=== PATIENT | female | born 1950 | race Caucasian/White ===

== ENCOUNTER → 2020-08-20 08:17 | Outpatient (CLI) | payer MEDICARE, MEDICAID, SELFPAY ==
--- NOTE | 2020-08-20 08:29 | US_ITS ---
PROCEDURE: US ABDOMEN LIMITED CLINICAL INDICATION: CHRONIC LIVER FAILURE W/O HEPATIC COMA COMPARISON: US ABD US ABD(COMPLETE-MULTI ORGANS from 12/24/2014 FINDINGS: PANCREAS: Unremarkable. No obvious mass or abnormal fluid collection. No ductal dilatation LIVER: Cirrhotic appearing liver. No focal liver lesion is evident. Portal vein is not enlarged. Portal blood flow direction is not well demonstrated but there does appear to be appropriate direction of blood flow within the portal vein.. RIGHT KIDNEY: Unremarkable. Normal size and echogenicity. No hydronephrosis GALLBLADDER: There are multiple gallstones. No gallbladder wall thickening, pericholecystic fluid, or biliary dilatation. There is a small amount of perihepatic fluid. IMPRESSION: Cholelithiasis. Cirrhotic appearing liver with a small amount of perihepatic fluid. Dictated by: Ricco Rivero MD 08/22/2020 11:55 Ricco Rivero MD in [place] 08/22/2020 11:55
== END ==
PROVIDERS: PCP Family Medicine; Visit Provider Family Medicine
DX: K72.10 Chronic hepatic failure without coma (principal)
CPT/HCPCS: 76705

== ENCOUNTER → 2020-12-18 16:19 | Outpatient (CLI) | payer MEDICARE, MEDICAID, SELFPAY ==
--- NOTE | 2020-12-18 | CA_ITS ---
APPROVED REPORT Left Lower Extremity Venous Study for DVT. Lpn: RICKIE Indications Lower Extremity Pain: Left Lower Extremity Edema: Left Current Smoker Patient denies any recent trauma. States her left foot has been swollen for a couple of weeks. Risk Factors Current Smoker HLD, HTN Vein Imaging CFV (L): compressive, spontaneous, phasic, augmentation FEM (L): compressive, spontaneous, phasic, augmentation POP (L): compressive, spontaneous, phasic, augmentation PTV (L): Compressible GSV (L): compressive, spontaneous, phasic, augmentation SSV (L): Compressible Peroneals (L):Compressible GAS (L): Compressible Findings No evidence of DVT or superficial thrombophlebitis in the veins scanned of the left lower extremity. Interstitial edema noted in left distal ankle. Conclusion No evidence of DVT or superficial thrombophlebitis in the veins scanned of the left lower extremity. Interstitial edema noted in left distal ankle. Critical Notification Critical Value: No Physician Notified Date: 12/18/2020 Time: 17:00 Physician Name: Dr. Knott Report Read Back Electronically signed by : Ricco Rivero MD 12/18/2020 17:22:19
== END ==
PROVIDERS: PCP Family Medicine; Visit Provider Family Medicine
DX: M79.605 Pain in left leg (principal)
CPT/HCPCS: 93971

== ENCOUNTER 2021-03-10 15:50 | Outpatient (RCR) | payer MEDICARE, MEDICAID, SELFPAY | END 2021-03-10 15:55 | disposition home or self-care (01) | LOC: PT 15:50 | PROVIDERS: PCP Family Medicine; Visit Provider Family Medicine | DX: R26.81 Unsteadiness on feet (principal); M62.81 Muscle weakness (generalized) | CPT/HCPCS: 97163; 97542 ==

== ENCOUNTER 2021-04-08 09:16 | Day surgery (SDC) | payer MEDICARE, MEDICAID, SELFPAY ==
[2021-04-02 13:44] VITALS: BMI 28.3
[2021-04-08] VITALS (7 sets, daily range): BP systolic 108–140; BP diastolic 55–71; PULSE 55–82; RESP 16–18; TEMP 36.3–36.6; O2SAT 95–100
[2021-04-08 08:55] LABS: Coronavirus 19, PCR Not Detected (NotDetected); Influenza A, PCR Not Detected (NotDetected); Influenza B, PCR Not Detected (NotDetected)
== END 2021-04-08 12:12 | disposition home or self-care (01) ==
LOC: OR 09:17
PROVIDERS: PCP Family Medicine; Visit Provider Ophthalmology
DX: H25.813 Combined forms of age-related cataract, bilateral (principal); H57.03 Miosis; H53.149 Visual discomfort, unspecified; H02.831 Dermatochalasis of right upper eyelid; H02.834 Dermatochalasis of left upper eyelid; J45.909 Unspecified asthma, uncomplicated; I10 Essential (primary) hypertension; Z86.73 Personal history of transient ischemic attack (TIA), and cerebral infarction without residual deficits; Z88.0 Allergy status to penicillin; Z88.2 Allergy status to sulfonamides; Z88.6 Allergy status to analgesic agent
CPT/HCPCS: 66982; U0003; V2632

== ENCOUNTER 2021-04-15 00:59 | Observation (INO) | payer MEDICARE, MEDICAID, SELFPAY ==
[2021-04-15] VITALS (21 sets, daily range): BP systolic 96–139; BP diastolic 47–79; PULSE 70–92; RESP 15–18; TEMP 36.7–43; O2SAT 93–99; BMI 28.3; BMI 30.2
--- NOTE | 2021-04-15 01:02 | CT_ITS ---
PROCEDURE INFORMATION: Exam: CT Cervical Spine Without Contrast Exam date and time: 04/15/2021 1:02 AM Age: 70 years old Clinical indication: Injury or trauma; Fall; Blunt trauma TECHNIQUE: Imaging protocol: Computed tomography images of the cervical spine without contrast. Radiation optimization: All CT scans at this facility use at least one of these dose optimization techniques: automated exposure control; mA and/or kV adjustment per patient size (includes targeted exams where dose is matched to clinical indication); or iterative reconstruction. COMPARISON: [facility] CT CERVICAL SPINE W/O CONT 08/25/2014 7:46 AM FINDINGS: Vertebrae: There are mild degenerative changes present. Normal alignment. No acute fractures. 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 Soft tissues: Unremarkable. Vasculature: Carotid atherosclerotic calcification. Lungs: Lung apices are normal. IMPRESSION: No acute injury.
--- NOTE | 2021-04-15 01:02 | XR_ITS ---
PROCEDURE INFORMATION: Exam: XR Chest Exam date and time: 04/15/2021 1:02 AM Age: 70 years old Clinical indication: Injury or trauma; Fall; Blunt trauma (contusions or hematomas) TECHNIQUE: Imaging protocol: XR of the chest. Views: 1 view. COMPARISON: CR CXR CHEST(2 VIEWS-NOT PORTABLE) 12/22/2014 8:49 PM FINDINGS: Lungs: Unremarkable. No consolidation. Pleural spaces: Unremarkable. No pleural effusion. No pneumothorax. Heart/Mediastinum: Unremarkable. No cardiomegaly. Vasculature: There are atherosclerotic calcifications in the aortic arch. Bones/joints: Degenerative changes throughout the thoracic spine. IMPRESSION: No acute injury.
--- NOTE | 2021-04-15 01:02 | XR_ITS ---
PROCEDURE INFORMATION: Exam: XR Left Hip Exam date and time: 04/15/2021 1:02 AM Age: 70 years old Clinical indication: Pain and injury or trauma; Blunt trauma (contusions or hematomas); Patient HX: Fall, left hip pain TECHNIQUE: Imaging protocol: XR Left hip. Views: 2 or 3 views hip with pelvis when performed. COMPARISON: CR PELAP PELVIS AP ONLY 06/09/2016 10:03 PM FINDINGS: Bones/joints: There is deformity of the left femoral neck consistent with a minimally displaced fracture. The femoral head remains well seated in the acetabulum. Soft tissues: Unremarkable. Intraperitoneal space: Stable surgical clips throughout the pelvis. Vasculature: Vascular calcifications throughout the upper leg and pelvis. IMPRESSION: Minimally displaced fracture of the left femoral neck.
--- NOTE | 2021-04-15 01:04 | CT_ITS ---
PROCEDURE INFORMATION: Exam: CT Left Lower Extremity Without Contrast, Hip Exam date and time: 04/15/2021 1:04 AM Age: 70 years old Clinical indication: Pain and injury or trauma; Fall; Blunt trauma; Hip; Left TECHNIQUE: Imaging protocol: CT of the Left lower extremity without contrast was performed. Exam focused on the hip. 3D rendering (Not supervised by radiologist): MIP and/or 3D reconstructed images were created by the technologist. Radiation optimization: All CT scans at this facility use at least one of these dose optimization techniques: automated exposure control; mA and/or kV adjustment per patient size (includes targeted exams where dose is matched to clinical indication); or iterative reconstruction. COMPARISON: CR XR HIP LT 2-3V W/PELVIS 04/15/2021 1:12 AM FINDINGS: Bones/joints: There is a fracture through the neck of the femur with mild impaction but no significant angulation or displacement. The femoral head remains well seated in the acetabulum. Soft tissues: Surgical clips throughout the pelvis. Vasculature: Severe atherosclerosis. IMPRESSION: Slightly impacted femoral neck fracture without significant angulation or displacement. No dislocation.
--- NOTE | 2021-04-15 01:04 | CT_ITS ---
PROCEDURE INFORMATION: Exam: CT Thoracic Spine Without Contrast Exam date and time: 04/15/2021 1:04 AM Age: 70 years old Clinical indication: Injury or trauma; Fall; Blunt trauma (contusions or hematomas) TECHNIQUE: Imaging protocol: Computed tomography images of the thoracic spine without contrast. Radiation optimization: All CT scans at this facility use at least one of these dose optimization techniques: automated exposure control; mA and/or kV adjustment per patient size (includes targeted exams where dose is matched to clinical indication); or iterative reconstruction. COMPARISON: CT CERVICAL SPINE WO CON 04/15/2021 1:23 AM FINDINGS: Vertebrae: Normal alignment. No acute fractures. There are mild degenerative changes present. Soft tissues: Soft tissues are normal. IMPRESSION: No acute injury.
--- NOTE | 2021-04-15 01:04 | CT_ITS ---
PROCEDURE INFORMATION: Exam: CT Lumbar Spine Without Contrast Exam date and time: 04/15/2021 1:04 AM Age: 70 years old Clinical indication: Injury or trauma; Fall; Blunt trauma (contusions or hematomas) TECHNIQUE: Imaging protocol: Computed tomography images of the lumbar spine without contrast. Radiation optimization: All CT scans at this facility use at least one of these dose optimization techniques: automated exposure control; mA and/or kV adjustment per patient size (includes targeted exams where dose is matched to clinical indication); or iterative reconstruction. COMPARISON: [facility] MRI-L-SPINE W/O 09/09/2016 3:47 PM FINDINGS: Vertebrae: There are marked degenerative changes present. There are old compression fractures of the superior endplates of L1 and L4 with greater than 50% loss of height of L1 and 25% loss of height of L4. Normal alignment. No acute fractures. Vasculature: There is severe aortoiliac atherosclerosis. Soft tissues: Unremarkable. IMPRESSION: No acute injury. Old fractures and severe degenerative changes.
--- NOTE | 2021-04-15 01:04 | XR_ITS ---
PROCEDURE INFORMATION: Exam: XR Left Shoulder Exam date and time: 04/15/2021 1:04 AM Age: 70 years old Clinical indication: Pain and injury or trauma; Fall; Blunt trauma (contusions or hematomas); Shoulder; Left; Prior surgery; Surgery date: 6+ months; Surgery type: Rotator cuff TECHNIQUE: Imaging protocol: XR Left shoulder. Views: 2 or more views. COMPARISON: CR CXR CHEST(2 VIEWS-NOT PORTABLE) 12/22/2014 8:49 PM FINDINGS: Bones/joints: Normal. Soft tissues: Normal. IMPRESSION: No acute findings.
--- NOTE | 2021-04-15 01:26 | CT_ITS ---
PROCEDURE INFORMATION: Exam: CT Head Without Contrast Exam date and time: 04/15/2021 1:26 AM Age: 70 years old Clinical indication: Injury or trauma; Fall; Blunt trauma (contusions or hematomas) TECHNIQUE: Imaging protocol: Computed tomography of the head without contrast. Radiation optimization: All CT scans at this facility use at least one of these dose optimization techniques: automated exposure control; mA and/or kV adjustment per patient size (includes targeted exams where dose is matched to clinical indication); or iterative reconstruction. COMPARISON: [facility] MRI-BRAIN W/WO 09/06/2014 8:48 AM FINDINGS: Brain: Age appropriate atrophy and small vessel ischemic change. No evidence of intracranial hemorrhage, mass effect, midline shift or extra-axial fluid collections. Midline structures are normal. Bagley-white matter differentiation is normal. Cerebral ventricles: No ventriculomegaly. Paranasal sinuses: Visualized sinuses are unremarkable. No fluid levels. Mastoid air cells: Visualized mastoid air cells are well aerated. Orbital cavity: The patient has had right lens replacement surgery. Vasculature: Carotid and vertebral artery atherosclerotic calcification. Bones/joints: Unremarkable. No acute fracture. Soft tissues: Unremarkable. IMPRESSION: No acute intracranial injury.
[2021-04-15 01:40] LABS: Microscopic, Urine URINE MICROSCOPIC (MICROSCOPIC)
[2021-04-15 01:41] LABS: Basophils % 0.4 % (0.1-2.0); Eosinophils % 0.3 % (0.1-12.0); Hematocrit 44.2 % (37.0-47.0); Hemoglobin 14.8 g/dL (12.2-16.2); Lymphocytes # 1.2 K/mm3 (0.7-4.5); Lymphocytes % 10.5 % (10-50); Mean Corpuscular HGB Conc 33.5 g/dL (31.8-35.4); Mean Corpuscular Volume 92.5 fl (81-99); Monocytes # 0.6 K/mm3 (0.1-1.0); Monocytes % 5.5 % (1.7-9.3); Neutrophils # 9.4 K/mm3 (1.8-7.8); Neutrophils % 83.3 % (37.0-80.0); Platelet Count 95 K/mm3 (142-424); Red Blood Count 4.78 M/mm3 (4.20-5.40); Red Cell Distribution Width 14.3 % (11.5-17.5); White Blood Count 11.3 K/mm3 (4.8-10.8)
[2021-04-15 01:44] LABS: Appearance,Urine CLEAR (Clear); Bilirubin,Urine Negative (Negative); Blood, Urine Negative (Negative); Color,Urine YELLOW (Yellow); Glucose,Urine (UA) Negative (Negative); Ketones,Urine Negative (Negative); Leukocyte Esterase,Urine Negative (Negative); Nitrate,Urine Negative (Negative); PH,Urine 5.5 (5.0-8.5); Protein,Urine Negative (Negative); Specific Gravity, Urine 1.015 (1.005-1.030)
[2021-04-15 01:46] LABS: Alanine Aminotransferase 29 U/L (12-78); Albumin Level 3.1 g/dl (3.5-5.0); Alkaline Phosphatase 105 U/L (38-126); Anion Gap 11.8 mEq/L (5-15); Aspartate Amino Transferase 34 U/L (14-36); Bilirubin,Total 1.2 mg/dl (0.2-1.3); Blood Urea Nitrogen 18 mg/dl (7-17); Calcium 8.8 mg/dl (8.4-10.2); Carbon Dioxide 24 mmol/L (22.0-30.0); Chloride 97 mmol/L (98-107); Creatinine Clearance Estimated 38 mL/min (50-200); Estimated Glomerular Filt Rate 34 ml/min (>60); GFR (African American) 41 ML/MIN (>60); Globulin 3.1 g/dL (1.3-3.2); Glucose 128 mg/dl (74-100); Potassium 3.8 mmoL/L (3.5-5.1); Sodium 129 mmol/L (136-145); Total Protein,Serum 6.2 g/dl (6.3-8.2)
[2021-04-15 01:50] LABS: C-Reactive Protein 33.3 mg/L (0-4)
[2021-04-15 02:02] LABS: Bacteria,Urine Trace /lpf; Mucus,Urine 1+ /lpf
[2021-04-15 02:02] LABS: Troponin I < 0.01 ng/ml (0.00-0.034)
[2021-04-15 02:04] LABS: Procalcitonin 0.141 ng/mL (0.0-2.0)
[2021-04-15 02:13] LABS: Erythrocyte Sedimentation Rate 13 mm/hr (0-30)
--- NOTE | 2021-04-15 02:32 | ECG_ITS ---
APPROVED REPORT Exam: Resting ECG HR:89 bpm ECG Measurements Heart Rate 89 AXES AL 178 P 76 QRSd 78 QRS 2 QT 422 T 9 QTc 513 Conclusion Normal sinus rhythm Low voltage QRS Prolonged QT Abnormal ECG Electronically signed by : Price Pedraza MD 04/15/2021 12:07:06
--- NOTE | 2021-04-15 02:51 | HMH.EDFALL ---
ED Disposition Clinical Impression: Renal insufficiency Hip fracture Qualifiers: Encounter type: initial encounter Fracture type: closed Laterality: left Qualified Code(s): S72.002A - Fracture of unspecified part of neck of left femur, initial encounter for closed fracture Fall Qualifiers: Encounter type: initial encounter Qualified Code(s): W19.XXXA - Unspecified fall, initial encounter Disposition: Admitted As Inpatient Condition on Discharge: Good Referrals: Presley Peña MD [Primary Care Provider] - - Critical Care Critical Care Time: No Attestation: On 04/15/21, the high probability of a clinically significant, sudden or life threatening deterioration of the following system(s) required my full and direct attention, intervention and personal management. The time I documented below is in addition to time spent performing reported procedures but includes the following listed in this critical care notation. Medical Decision Making - Medical Records Medical records reviewed: Yes: I reviewed the patient's medical records. - Jared Inquiry Pt receiving controlled substance: No Vital Signs: 04/15/21 00:57 Temperature 98.7 F Temperature Source Oral Pulse Rate [Right] 70 Respiratory Rate 16 Blood Pressure [Right Arm] 122/57 L Blood Pressure Mean [Right Arm] 78 02 Sat by Pulse Oximetry 99 - Lab Data Lab results reviewed: Yes: I reviewed the patient's lab results. Lab Results 04/15/21 01:00: WBC 11.3 H, RBC 4.78, Hgb 14.8, Hct 44.2, MCV 92.5, MCH 31.0, MCHC 33.5, RDW 14.3, Plt Count 95 L, MPV 12.0 H, Neut % (Auto) 83.3 H, Lymph % (Auto) 10.5, Van Zandt % (Auto) 5.5, Eos % (Auto) 0.3, Baso % (Auto) 0.4, Neut # (Auto) 9.4 H, Lymph # (Auto) 1.2, Van Zandt # (Auto) 0.6, Eos # (Auto) 0.0, Baso # (Auto) 0.0, ESR 13 04/15/21 01:00: Sodium 129 L, Potassium 3.8, Chloride 97 L, Carbon Dioxide 24, Anion Gap 11.8, BUN 18 H, Creatinine 1.50 H, Estimated Creat Clear 38, Estimated GFR 34 L, Est GFR ( Amer) 41 L, Glucose 128 H, Calcium 8.8, Total Bilirubin 1.2, AST 34, ALT 29, Alkaline Phosphatase 105, Troponin I < 0.01, C-Reactive Protein 33.3 H, Total Protein 6.2 L, Albumin 3.1 L, Globulin 3.1, Albumin/Globulin Ratio 1.0 L, Procalcitonin 0.141 04/15/21 01:15: Urine Color Yellow, Urine Appearance Clear, Urine pH 5.5, Ur Specific [place] 1.015, Urine Protein Negative, Urine Glucose (UA) Negative, Urine Ketones Negative, Urine Blood Negative, Urine Nitrate Negative, Urine Bilirubin Negative, Urine Urobilinogen 1.0, Ur Leukocyte Esterase Negative, Urine WBC 3-5, Ur Squamous Epith Cells 3-5, Urine Bacteria Trace, Hyaline Casts 3-5, Urine Mucus 1+ Result diagrams: 04/15/21 01:00 04/15/21 01:00 Orders (Tests/Meds): ED MEDICATIONS Generic Name Dose Route Start Last Admin Trade Name Freq PRN Reason Stop Dose Admin Sodium Chloride 1,000 mls @ 999 mls/hr 04/15/21 01:15 04/15/21 01:09 Sod Chlor 0.9% 1000ml Bag IV 04/15/21 02:15 999 mls/hr .Q1H1M SARA Administration Discontinued Medications Generic Name Dose Route Start Last Admin Trade Name Freq PRN Reason Stop Dose Admin Morphine Sulfate 2 mg 04/15/21 01:07 04/15/21 01:09 Morphine 2mg/Ml Syringe IV 04/15/21 01:08 2 mg ONCE ONE Administration Ondansetron HCl 4 mg 04/15/21 01:07 04/15/21 01:09 Ondansetron 4mg/2ml Vial IV 04/15/21 01:08 4 mg ONCE ONE Administration ORDERS Category Date Time Status Rapid PCR Covid and Flu A/B Stat Lab 04/15/21 02:21 Ordered Troponin I Q3H Lab 04/15/21 04:30 Ordered Troponin I Q3H Lab 04/15/21 07:30 Ordered - Radiology Data #1 Image(s): Chest, Pelvis, Hip Image Reviewed: Yes I have reviewed radiologist's interpretation Preliminary Findings: Abnormal - CT Data CT Scan: Head, C-Spine, Pelvis, T-Spine, L-Spine Time Received: 02:[address] Reviewed: Yes: I have viewed the radiologist's interpretation Preliminary Findings: Abnormal (see reports) - ECG Data Tracing #1 Nor
--- NOTE | 2021-04-15 02:55 | PC.NURSE ---
paged dr davila @ this time
[2021-04-15 03:04] LABS: Coronavirus 19, PCR Not Detected (NotDetected); Influenza A, PCR Not Detected (NotDetected); Influenza B, PCR Not Detected (NotDetected)
--- NOTE | 2021-04-15 04:47 | CA_ITS ---
APPROVED REPORT EXAM: Comprehensive 2D, Doppler, and color-flow Echocardiogram [employer]er: Zaria Franklin CRT Ht: 5 ft 2 in Wt: 155lbs BSA: 1.72 BP: 122/57 mmHg Indications: Hip fx pre-op, asthma, HTN Liimited exam due to Lt hip fx, pt turned to her right side. No parasternal images available. 2D Dimensions LVOT 1.78 cm (M/F) 1.5-2.5 M-Mode Dimensions RVDd 2.79 cm (0.9-2.6) LA Diam 2.35 cm (1.9-4.0) LVDd 2.57 cm (3.5-5.7) Ao Diam 4.19 cm (2.0-3.7) LVDs 1.57 cm (3.5-5.7) IVSd 2.35 cm (0.6-1.1) PWd 0.88 cm (0.6-1.1) EF (Teich) 71.50% FS 38.90% EDV (Teich) 23.90 mL ESV (Teich) 6.80 mL LV Diastology E Decel Time 150.00 (160-240 msec) E/A Ratio 0.63 Aortic Valve AO Peak GR. 1.90 mmHg Mitral Valve MV E Max Owen. 65.00 (40-130 cm/s) MV A Velocity 104.00 (40-130 cm/s) E/A Ratio 0.63 MV Decel. Time 150.00 (160-240 ms) MV PHT 44.00 ms Tricuspid Valve TR P. Velocity 80.00 cm/s RAP Estimate 10.00 mmHg RVSP 12.60 mmHg Conclusion 1. Limited study was performed due to patient factors and poor acoustic windows, technically very challenging study. 2. Normal left ventricular size likely preserved left ventricular systolic function, visually estimated ejection fraction 55% with no obvious regional wall motion abnormality. Doppler evidence of impaired LV relaxation seen. 3. Right-sided chambers appeared to be normal size and contractility. 4. No significant pericardial effusion noted, valvular structures are poorly visualized. Electronically signed by : Tony Stone MD 04/15/2021 07:25:35
--- NOTE | 2021-04-15 04:53 | PC.NURSE ---
notified ward attendant on 2nd floor to add pt to consult list for Dr Bal.
--- NOTE | 2021-04-15 04:54 | PC.NURSE ---
notified respiratory to let vascular know of echo order in on pt
[2021-04-15 05:16] LABS: Basophils % 0.2 % (0.1-2.0); Eosinophils % 0.2 % (0.1-12.0); Hematocrit 41.6 % (37.0-47.0); Hemoglobin 14.1 g/dL (12.2-16.2); Lymphocytes # 0.7 K/mm3 (0.7-4.5); Lymphocytes % 8.4 % (10-50); Mean Corpuscular Hemoglobin 31.1 pg (27.0-31.2); Mean Corpuscular Volume 91.5 fl (81-99); Mean Platelet Volume 12.2 fl (7.4-10.4); Monocytes # 0.6 K/mm3 (0.1-1.0); Monocytes % 6.4 % (1.7-9.3); Neutrophils # 7.5 K/mm3 (1.8-7.8); Neutrophils % 84.8 % (37.0-80.0); Platelet Count 79 K/mm3 (142-424); Red Blood Count 4.54 M/mm3 (4.20-5.40); Red Cell Distribution Width 14.3 % (11.5-17.5); White Blood Count 8.8 K/mm3 (4.8-10.8)
[2021-04-15 05:19] LABS: Chloride 100 mmol/L (98-107); Potassium 4.3 mmoL/L (3.5-5.1); Sodium 131 mmol/L (136-145)
[2021-04-15 05:22] LABS: Anion Gap 9.3 mEq/L (5-15); Blood Urea Nitrogen 16 mg/dl (7-17); Carbon Dioxide 26 mmol/L (22.0-30.0); Creatinine Clearance Estimated 40 mL/min (50-200); Estimated Glomerular Filt Rate 37 ml/min (>60); GFR (African American) 45 ML/MIN (>60); Prothrombin Time 13.3 seconds (10.1-12.5)
[2021-04-15 05:23] LABS: Calcium 8.3 mg/dl (8.4-10.2); Glucose 124 mg/dl (74-100)
[2021-04-15 05:27] LABS: INR 1.14 (0.9-1.1)
[2021-04-15 05:39] LABS: Troponin I < 0.01 ng/ml (0.00-0.034)
--- NOTE | 2021-04-15 07:28 | P.CONPHA_ITS ---
[facility] Pharmacy VTE Monitoring - Patient Demographics Admission date: 04/15/21 Report Date: 04/15/21 Time: 07:28 Allergies/Adverse Reactions: Patient Allergies codeine [CODEINE] Allergy (Intermediate, Verified 04/08/21 10:13) I-RASH Penicillins [PENICILLINS] Allergy (Intermediate, Verified 04/08/21 10:13) I-RASH Sulfa (Sulfonamide Antibiotics) [SULFA (SULFONAMIDE ANTIBIOTICS)] Allergy (Mild, Verified 04/08/21 10:13) NA-NAUSEA/VOMITING Height: 1.57 m Weight: 70.307 kg Patient Problems: Current Active Problems Hip fracture (Acute) Fall (Acute) Renal insufficiency (Acute) - VTE Risk Labs: VTE Related Lab Results Hgb 14.1 g/dL (12.2-16.2) 04/15/21 04:54 Hct 41.6 % (37.0-47.0) 04/15/21 04:54 Plt Count 79 K/mm3 (142-424) L 04/15/21 04:54 PT 13.3 seconds (10.1-12.5) H 04/15/21 04:54 INR 1.14 (0.9-1.1) H 04/15/21 04:54 BUN 16 mg/dl (7-17) 04/15/21 04:54 Creatinine 1.40 mg/dl (0.52-1.04) H 04/15/21 04:54 Estimated Creat Clear 40 mL/min (50-200) 04/15/21 04:54 Clinical Trial Participant: No - Prophylaxis VTE Prophylaxis Ordered?: Yes Types of VTE Prophylaxis: TEDS Knee High
--- NOTE | 2021-04-15 07:28 | PC.NURSE ---
PT ASLEEP, NAD NOTED. PLAN FOR ADMISSION/ORTHO C/S.
--- NOTE | 2021-04-15 07:36 | PC.NURSE ---
PMS INTACT TO LLE.
--- NOTE | 2021-04-15 07:49 | HMH.PHAINT ---
MEDICATION RECONCILIATION COMPLETED USING EXTERNAL PHARMACY FILL HISTORY.
--- NOTE | 2021-04-15 08:02 | PC.NURSE ---
REPORT GIVEN TO SHAWNEE SINGH.
--- NOTE | 2021-04-15 08:45 | PC.NURSE ---
DR. BERRY AT BEDSIDE.
--- NOTE | 2021-04-15 08:54 | PC.NURSE ---
Pt arrived to the floor at this time.
--- NOTE | 2021-04-15 09:22 | HMH.HP ---
*Admission Date: 04/15/21 <Cayla Bragg 04/15/21 09:54> *Chief complaint: Fracture of the left hip <Cayla Bragg 04/15/21 09:54> *History of present illness: Ms. Evans is a 70-year-old female with history of hypertension, GERD, anxiety, degenerative disc disease, low back pain, asthma, COPD, upper GI bleed, microvascular ischemic brain disease, tobacco abuse, esophageal varices, thrombocytopenia, hypertension, and cirrhosis,( Trejo) who presented to the emergency room after a fall. She noted that she tripped over her dog and fell and was unable to get up. Her [id number] did come to her house and found her on the floor approximately 30 minutes later. She was brought to [facility] for evaluation and was found to have a fractured left femoral head. She had multiple other x-rays/CTs which revealed no acute findings. She was thus admitted with an orthopedic consult. At the time of this exam patient denies chest pain and shortness of air. She has chronic lung issues and sustains a chronic cough. She denies any nausea or vomiting. She did receive morphine in the emergency room and is drowsy from this. She also received Zofran and a liter of IV fluids. <Cayla Bragg 04/15/21 09:54> [facility] History Medical History: Reports:: Anxiety, Asthma, Chronic Obstructive Pulmonary Disease (COPD), Depression, Gastroesophageal Reflux Disease(GERD), Hypertension Denies:: Cancer, Diabetes Mellitus Type 1, Diabetes Mellitus Type 2, Internal Pacemaker, MRSA, Seizures <Cayla Bragg 04/15/21 09:54> *Have you ever received a pneumonia vaccine?: No <Cayla Bragg 04/15/21 09:54> *Have you received a flu vaccine this season?: No <Cayla Bragg 04/15/21 09:54> Other Medical History: Reports: Arthritis (Degenerative disc disease), Cataracts, Liver Disease (Trejo) <Cayla Bragg 04/15/21 09:54> Comment:: Carpal tunnel disease, esophageal varices, thrombocytopenia <Cayla Bargg 04/15/21 09:54> Laterality Cases: Right: Cataract, Bilateral: Arthroscopy Shoulder, Carpal Tunnel Release <Cayla Bragg 04/15/21 09:54> Other Surgeries: No: Pacemaker <BraggCayla 04/15/21 09:54> Amputation: No <BraggCayla 04/15/21 09:54> Fractures: No <Cayla Bragg 04/15/21 09:54> - *Social History Smoking Status: Current every day smoker <BraggCayla 04/15/21 09:54> Tobacco Type: cigarettes <BraggCayla 04/15/21 09:54> # Packs/Day (cigarettes): 1 <MahsaCayla 04/15/21 09:54> Alcohol Intake: never <BraggCayla 04/15/21 09:54> *Occupational Status:: retired <BraggCayla 04/15/21 09:54> Housing: house <MahsaCayla 04/15/21 09:54> Household Members: none <BraggCayla 04/15/21 09:54> *Travel in the last 8 weeks: None <BraggCayla 04/15/21 09:54> Family Hx:: Coronary Artery Disease, Diabetes <BraggCayla 04/15/21 09:54> Review of Systems - Constitutional Denies fatigue, Denies fever(s) <Bragg,Cayla 04/15/21 09:54> - Eyes Reports change in vision (Just had cataract surgery) <BraggCyala 04/15/21 09:54> - ENT Denies ear pain, Denies sore throat <MahsaCayla 04/15/21 09:54> - *Cardiovascular Denies chest pain, Denies shortness of breath, Denies irregular heart rhythm <BraggCayla 04/15/21 09:54> - *Respiratory Reports change in phlegm color, Reports cough (Chronic productive cough), Reports shortness of breath (At baseline), Reports wheezing, Denies coughing up blood <BraggCayla 04/15/21 09:54> - *Gastrointestinal Reports constipation, Reports nausea, Denies abdominal pain, Denies change in bowel habits, Denies vomiting blood, Denies bright, red blood in stools, Denies vomiting <MahsaCayla 04/15/21 09:54> - *Genitourinary Reports difficulty urinating <Cayla Bragg 04/15/21 09:54> - *Musculoskeletal Reports abnormal walking (Ataxic), Reports joint pain <Cayla Bragg 04/15/21 09:54> - *Neurologic Reports dizziness, Denies abnorma
--- NOTE | 2021-04-15 09:37 | PC.NURSE ---
Notified Keisha about Dr. Bal consult.
[2021-04-15 11:20] LABS: Troponin I < 0.01 ng/ml (0.00-0.034)
--- NOTE | 2021-04-15 13:29 | HMH.ORTHOCON ---
*Admission Date: 04/15/21 *Reason for consult:: Fracture neck of femur, left hip *History of present illness: Ms. Evans is a 70-year-old female with history of hypertension, GERD, anxiety, degenerative disc disease, low back pain, asthma, COPD, upper GI bleed, microvascular ischemic brain disease, tobacco abuse, esophageal varices, thrombocytopenia, hypertension, and cirrhosis( Trejo) who presented to the emergency room during the early hours of this morning after a fall. She reports that she tripped over her dog and fell and was unable to get up/walk. Her fjjvmfkw-[id number]-euq came to her house and found her on the floor approximately 30 minutes after the fall. She was brought to [facility] ER for evaluation and was found to have a nondisplaced femoral neck. Following evaluation in the ER, she was admitted to the hospital for management of the hip fracture. At the time of examination on the floor, she is complaining of left hip pain. She says any attempted movements of the left lower extremity aggravate the pain. No history of any distal tingling or numbness. No history of any other injuries. No history of any loss of consciousness, head injury, neck pain, chest pain and shortness of breath. Patient states that she lives by herself and was usually mobilizing with a walker prior to the fall. She says her son lives nearby. No history of any hip pain prior to the fall. [facility] History I have reviewed the patient's past medical history: Yes Medical History: Reports:: Anxiety, Asthma, Chronic Obstructive Pulmonary Disease (COPD), Depression, Gastroesophageal Reflux Disease(GERD), Hypertension Denies:: Cancer, Diabetes Mellitus Type 1, Diabetes Mellitus Type 2, Internal Pacemaker, MRSA, Seizures *Have you ever received a pneumonia vaccine?: No *Have you received a flu vaccine this season?: No Other Medical History: Reports: Arthritis (Degenerative disc disease), Cataracts, Liver Disease (Trejo) Laterality Cases: Right: Cataract, Bilateral: Arthroscopy Shoulder, Carpal Tunnel Release Other Surgeries: No: Pacemaker Amputation: No Fractures: No - *Social History Last grade of school completed: High school graduate Smoking Status: Current every day smoker Tobacco Type: cigarettes # Packs/Day (cigarettes): 1 Alcohol Intake: never *Occupational Status:: retired Housing: house Household Members: none *Travel in the last 8 weeks: None - Psychiatric History Pschychiatric History:: Reports:: Anxiety, Depression Family Hx:: Coronary Artery Disease, Diabetes Review of Systems - Review of Systems Review of systems:: pertinent systems reviewed and negative unless documented below - Constitutional Denies chills, Denies fever(s) - Eyes Denies change in vision - ENT Denies abnormal hearing - *Cardiovascular Denies chest pain, Denies shortness of breath - *Respiratory Denies chest congestion, Denies cough - *Gastrointestinal Denies abdominal pain, Denies change in bowel habits - *Musculoskeletal Reports abnormal walking, Reports joint pain, Reports limited joint movement - *Neurologic Reports abnormal walking (Ataxic), Reports dizziness, Denies abnormal speech, Denies seizure-like activity, Denies headache(s), Denies seizure-like activity - Endocrine Denies cold intolerance, Denies heat intolerance - Hematologic/Lymphatic Denies easy bleeding, Denies easy bruising Meds Home Medications Medication Instructions Recorded Confirmed Type Cholecalciferol (Vitamin D3) 5,000 unit PO DAILY 04/08/21 04/15/21 History [Vitamin D3 1,000 Unit Cap] Citalopram Hydrobromide 40 mg PO DAILY 04/08/21 04/15/21 History [Citalopram 40mg Tablet] Esomeprazole Magnesium 40 mg PO DAILY 04/08/21 04/15/21 History Furosemide [Furosemide 40MG tAB*] 40 mg PO DAILY 04/08/21 04/15/21 History Oxybutynin Chloride [Oxybutynin 10 mg PO DAILY 04/08/21 04/15/21 History Chloride ER] Spironolactone 200 mg PO DAILY 04/08/21 04/15/21 History Tra
--- NOTE | 2021-04-15 15:01 | PC.NURSE ---
Pt off of floor at this time for surgery.
--- NOTE | 2021-04-15 16:21 | PC.NURSE ---
Pt is back to the floor
--- NOTE | 2021-04-15 16:53 | XR_ITS ---
PROCEDURE: XR HIP LT 2-3V W/PELVIS CLINICAL INDICATION: LEFT HIP SCREW FIXATION IN OR COMPARISON: No exams were available for comparison FINDINGS: Fluoroscopy time: 1 minutes and 20 seconds. 3 screws have been placed through the left femur from the base of the greater trochanter to the femoral head region stabilizing the mildly impacted femoral neck fracture with good alignment. IMPRESSION: Good alignment status post ORIF left femoral neck fracture Dictated by: Ricco Rivero MD 04/15/2021 17:22 Ricco Rivero MD in OV 04/15/2021 17:22
--- NOTE | 2021-04-15 17:31 | P.PN_ITS ---
[facility] Anesthesia Checklist - Patient Identification Patient Identification: Arm Band - Structural Data Admitted From: Inpatient Planned Operative Procedure/s: Left Hip Screw Fixation Consent for Planned Operative Procedure(s) Verified: Yes Verified Documents: Surgical Consent, History and Physical - NPO Status Verified Time NPO: 00:00 - Additional verifications Anesthesia Reactions: No - Airway Assessment C-Spine Mobility Assessed: Yes (mp2) TMJ Mobility Assessed: Yes Dentition: Edentulous - Neurological Assessment Level of Consciousness: Awake, Alert - Anesthesia Plan Anesthesia Risk discussed: Yes Anesthesia Plan: Verified ASA Class: III Anesthesia Type: General [facility] History I have reviewed the patient's past medical history: Yes Medical History: Reports:: Anxiety, Asthma, Chronic Obstructive Pulmonary Disease (COPD), Depression, Gastroesophageal Reflux Disease(GERD), Hypertension Denies:: Cancer, Diabetes Mellitus Type 1, Diabetes Mellitus Type 2, Internal Pacemaker, MRSA, Seizures *Have you ever received a pneumonia vaccine?: No *Have you received a flu vaccine this season?: No Other Medical History: Reports: Arthritis (Degenerative disc disease), Cataracts, Liver Disease (Trejo) Anesthesia experience/problems:: nac Laterality Cases: Right: Cataract, Bilateral: Arthroscopy Shoulder, Carpal Tunnel Release Other Surgeries: Yes: Other. No: Pacemaker Amputation: No Fractures: No - *Social History Last grade of school completed: High school graduate Smoking Status: Current every day smoker Tobacco Type: cigarettes # Packs/Day (cigarettes): 1 Alcohol Intake: never Substance Use Type: denies use *Occupational Status:: retired Housing: house Household Members: none *Travel in the last 8 weeks: None - Psychiatric History Pschychiatric History:: Reports:: Anxiety, Depression Family Hx:: Coronary Artery Disease, Diabetes
--- NOTE | 2021-04-15 17:34 | P.PN_ITS ---
[facility] Anesthesia Record Part I Intake, IV Amount: 1,200 Estimated blood loss (mL): 50 Urine output (mL): 100 Blood Pressure: 139/79 SaO2: 93 Pulse Rate: 90 Respiratory Rate: 16 Temperature: 99.8 F Patient is:: Drowsy, Stable Stable to PACU at:: 17:25
--- NOTE | 2021-04-15 21:07 | HMH.OPNOTE ---
Date of procedure: 04/15/21 Pre-op Diagnosis:: Impacted, nondisplaced fracture neck of femur, left hip Post-op Diagnosis:: Same Procedure performed:: Cannulated screw fixation, left hip Surgeon:: Keyshawn Bal MD [employer] Electrical Designer(s):: Yadira Alarcon PA-C SUPERVISOR PIPELINES:: Pankaj Vogel Anesthesia: LMA Estimated blood loss (mL): 50 Clinical Note:: Patient is a 70-year-old female who sustained a closed valgus impacted fracture neck of LEFT femur following a mechanical fall at home. Internal fixation with cannulated hip screws he is indicated to relieve pain and restore function. Please refer to my consult note for full details. Operative findings:: Closed nondisplaced valgus impacted femoral neck fracture LEFT hip as noted on the preoperative hip x-rays. The proximal femur bone quality is good. Operative note:: On the day of the procedure the patient was met on the floor, and a physical examination was performed. The operative side and site were marked and initialed by me. I reviewed the clinical and x-ray findings with the patient. I have discussed the diagnosis and management options in detail including both nonsurgical and surgical. We discussed the surgical options in the form of either cannulated hip screw fixation or hemiarthroplasty/total hip arthroplasty. We discussed the pros and cons of these procedures. Given that the fracture appears to be stable with valgus impaction, I have recommended a cannulated hip screw fixation. We discussed the possibility of nonunion, avascular necrosis, loss of fixation and the likely need for further surgery in future if we elected this option. I explained the procedure, risks and benefits, alternatives and the expected postoperative course. I explained with drawings and x-ray pictures of the fracture and the proposed surgical procedure. The complications discussed include but are not limited to- infection, injury to nerves and blood vessels, DVT and PE, femur fracture, limb length inequality, implant failure, nonunion, malunion, avascular necrosis, loss of fixation, heterotopic ossification, incomplete relief of pain, incomplete return of function or motion, likely need for further surgery in future including conversion to a gena-or total hip arthroplasty, anesthetic/medical complications including heart attack, stroke, transfusion reactions and even . We discussed how any of these events can be devastating. We have discussed nonsurgical alternatives as well. We also discussed the postoperative course including the rehab and physical therapy required. All the questions were answered and patient verbalized a good understanding. Patient understood the risks, agreed to proceed with surgery, signed the consent form and no guarantees or assurances were given or implied. Following appropriate preoperative workup and medical clearance, patient was brought to the operating room and a general anesthesia was administered. Patient was then positioned supine on the fracture table and all the bony prominences were appropriately padded. The LEFT foot was secured in the footplate and the footplate was attached to the fracture table. The RIGHT leg was placed out of the way in a leg schwartz. Under fluoroscopic guidance the fracture was visualized and noted to be still holding good in valgus impaction with no change in position compared to the preoperative x-rays. The LEFT hip and thigh were then prepped and draped in the usual sterile fashion. Administration of prophylactic antibiotics was confirmed with the bottle labeler. A preprocedure timeout was performed as per the hospital protocol. After marking the level of the greater trochanter on the skin and the proposed screw trajectory under fluoroscopy, a skin incision was made for the lateral approach to the proximal femur. The dissection was then carried through subcutaneous tissue. The fascia bharathi and vastus lateralis were split in line with the skin incision. This provided access to the lateral aspec
[2021-04-16] VITALS (9 sets, daily range): BP systolic 101–135; BP diastolic 48–70; PULSE 69–92; RESP 16–20; TEMP 36.6–37.7; O2SAT 91–97; BMI 31.7
--- NOTE | 2021-04-16 04:51 | PC.NURSE ---
0100- received report from patel lebron rn Pt. has not c/o n/v/d, pain, dizziness or soa. l hip dsg c/d/i. 2l nc with o2 sat 93-95%
[2021-04-16 07:24] LABS: Hematocrit 40.7 % (37.0-47.0); Hemoglobin 13.3 g/dL (12.2-16.2); Lymphocytes # 0.7 K/mm3 (0.7-4.5); Lymphocytes % 6.4 % (10-50); Mean Corpuscular HGB Conc 32.5 g/dL (31.8-35.4); Mean Corpuscular Hemoglobin 31.2 pg (27.0-31.2); Mean Corpuscular Volume 95.8 fl (81-99); Mean Platelet Volume 12.5 fl (7.4-10.4); Monocytes # 0.6 K/mm3 (0.1-1.0); Neutrophils % 87.6 % (37.0-80.0); Platelet Count 83 K/mm3 (142-424); Red Blood Count 4.25 M/mm3 (4.20-5.40); Red Cell Distribution Width 14.4 % (11.5-17.5); White Blood Count 10.2 K/mm3 (4.8-10.8)
[2021-04-16 07:55] LABS: MANUAL DIFFERENTIAL MANUAL DIFFERENTIAL (MANUAL DIFF)
[2021-04-16 08:02] LABS: Anion Gap 12.4 mEq/L (5-15); Blood Urea Nitrogen 18 mg/dl (7-17); Calcium 8.1 mg/dl (8.4-10.2); Carbon Dioxide 26 mmol/L (22.0-30.0); Chloride 98 mmol/L (98-107); Creatinine Clearance Estimated 51 mL/min (50-200); Estimated Glomerular Filt Rate 44 ml/min (>60); GFR (African American) 53 ML/MIN (>60); Glucose 127 mg/dl (74-100); Potassium 4.4 mmoL/L (3.5-5.1); Sodium 132 mmol/L (136-145)
--- NOTE | 2021-04-16 08:22 | HMH.ACPN2 ---
<Cayla Bragg - Last Filed: 04/16/21 08:22> Internal Medicine - PN: Subj *Date: 04/16/21 *Time: 08:22 Interval history: Patient has screw fixation of the left hip per Dr. Bal for her femur fracture yesterday 04/15/2021. She had uneventful night. She states she was unable to sleep and usually takes a sleeping pill at home and has her dog with her. Pain is managed with pain medicines. He does have a congested cough which usually keeps. She uses nebs and inhalers at home for this. She denies chest pain and states she is not short of breath. Exam Vital signs and Labs for Last 24 Hours: Temp Pulse Resp BP Pulse Ox 98 F 78 19 103/56 L 94 L 04/16/21 07:26 04/16/21 07:26 04/16/21 07:26 04/16/21 07:26 04/16/21 07:26 Laboratory Results - last 24 hr 04/15/21 10:00: Troponin I < 0.01 04/15/21 11:20: Blood Type O Positive, Antibody Screen Negative 04/15/21 18:55: Blood Type O Positive, Antibody Screen Negative 04/16/21 06:47: WBC 10.2, RBC 4.25, Hgb 13.3, Hct 40.7, MCV 95.8, MCH 31.2, MCHC 32.5, RDW 14.4, Plt Count 83 L, MPV 12.5 H, Neut % (Auto) 87.6 H, Lymph % (Auto) 6.4 L, [place] % (Auto) 6.0, Eos % (Auto) 0.0 L, Baso % (Auto) 0.0 L, Neut # (Auto) 9.0 H, Lymph # (Auto) 0.7, [place] # (Auto) 0.6, Eos # (Auto) 0.0, Baso # (Auto) 0.0 04/16/21 06:47: Sodium 132 L, Potassium 4.4, Chloride 98, Carbon Dioxide 26, Anion Gap 12.4, BUN 18 H, Creatinine 1.20 H, Estimated Creat Clear 51, Estimated GFR 44 L, Est GFR ( Amer) 53 L, Glucose 127 H, Calcium 8.1 L I & O for Last 24 hours: Intake & Output 04/13/21 04/14/21 04/15/21 04/16/21 11:59 11:59 11:59 11:59 Intake Total 1500 / 1500 Output Total 600 / 600 900 / 900 Balance -600 / -600 600 / 600 Weight 155 lb 168 lb 2 oz - Constitutional no acute distress Comments: Appears comfortable lying in the bed. - *Routine Respiratory Exam Present: crackles (Bilateral crackles greater on the right.) - *Routine Cardiovascular Exam Present: RRR - *Routine Abdominal Exam Present: soft, normoactive bowel sounds. Absent: tenderness - *Routine Extremities Exam Absent: edema, calf tenderness (SCUDs on the right lower extremity.) Comments: Dressing over the left hip is clean and dry - *Routine Neurological Exam Present: alert, oriented X3 Assessment and Plan (1) Hip fracture Status: Acute Qualifiers: Encounter type: initial encounter Fracture type: closed Laterality: left Qualified Code(s): S72.002A - Fracture of unspecified part of neck of left femur, initial encounter for closed fracture Category: Medical Code(s): S72.009A - Fracture of unspecified part of neck of unspecified femur, initial encounter for closed fracture (2) Fall Status: Acute Qualifiers: Encounter type: initial encounter Qualified Code(s): W19.XXXA - Unspecified fall, initial encounter Category: Medical Code(s): W19.XXXA - Unspecified fall, initial encounter (3) COPD (chronic obstructive pulmonary disease) Status: Chronic Category: Medical Code(s): J44.9 - Chronic obstructive pulmonary disease, unspecified (4) Hypertension Status: Chronic Category: Medical Code(s): I10 - Essential (primary) hypertension (5) GERD (gastroesophageal reflux disease) Status: Acute Category: Medical Code(s): K21.9 - Gastro-esophageal reflux disease without esophagitis (6) TOVAR (nonalcoholic steatohepatitis) Status: Chronic Category: Medical Code(s): K75.81 - Nonalcoholic steatohepatitis (TOVAR) (7) Renal insufficiency Status: Acute Category: Medical Code(s): N28.9 - Disorder of kidney and ureter, unspecified (8) Hyponatremia Status: Acute Category: Medical Code(s): E87.1 - Hypo-osmolality and hyponatremia (9) Status post-operative repair of hip fracture Status: Acute Category: Surgical Code(s): Z98.890 - Other specified postprocedural states; Z87.81 - Personal history of (healed) traumatic fracture - Assessment a
[2021-04-16 08:42] LABS: Lymphocytes % 19 % (10-50); Monocytes % 3 % (2-9); Neutrophils % 78 % (42-76); Platelet Estimate Normal; RBC Morphology Normal; Total Cells Counted 100
--- NOTE | 2021-04-16 08:43 | HMH.ANESII ---
[facility] Anesthesia Record Part II Discharge Time: 17:55 Destination: Second Floor PACU nurse assessment reviewed?: Yes Patient Condition:: Good Anesthesia Complications:: None Swallowing reflex intact?: Yes Cyanosis?: No Blood Pressure: 135/70 Pulse Rate: 92 Temperature: 99.8 F Mental Status: Alert & Oriented Pain level:: 0 Nausea and/or vomitting:: None Intake, IV Amount: 0
[2021-04-16 08:45] LABS: Prothrombin Time 13.1 seconds (10.1-12.5)
[2021-04-16 09:02] LABS: INR 1.12 (0.9-1.1)
--- NOTE | 2021-04-16 10:23 | HMH.PTEV ---
Physical Therapy Evaluation Rehab PT IP Evaluation Start: 04/15/21 17:32 Freq: ONCE Status: Active Protocol: Document 04/16/21 10:05 PHORNE (Rec: 04/16/21 10:22 PHORNE [id number]) Subjective/History History History Pt is 70 year old female admitted to [facility] s/p L hip ORIF . Pt states she lives alone in one level home with ~6 steps to enter. She reports an un- usable ramp in the back of her home. Pt reports no prior use of AD and was independent before admittance to [facility]. Eval completed by JEEVAN Nagel. Subjective Subjective Pt reports minimal pain in L hip this morning. Rehab PT IP Eval Objective Appearance Patient Behavior Appropriate,Cooperative Patient Orientation Place,Name,Birthday,Year Difficulty following instructions none Speech Pattern Clear,Appropriate,Coherent Ambulation Patient Able to Ambulate Yes Ambulation Observation IP General Gait Pattern Observation Wide Based Gait,Shuffling Step Ambulation Distance (feet) 3 Ambulation Assistive Device Rolling Walker Ambulation Ability Contact Guard/Hand Hold Balance Ability to Arise Able, uses arms to help Sitting Balance Steady, safe Standing Balance Steady, wide stance Dynamic Sitting Balance Ability Good Dynamic Standing Balance Ability Fair Transfers Bed Transfer Ability Minimal x 1 (25% assist) Chair Transfer Ability Contact Guard/Hand Hold Sit to Stand Bed Transfer Ability Contact Guard/Hand Hold ROM All Extremities PT ROM Status WFL MMT All Extremities PT MMT WFL Rehab PT IP prob,goals,plan Problems Date of Evaluation: 04/16/21 PT IP Problems Bed Mobility,Transfers,Gait, Balance,Safety Rehab Potential Rehab Potential Good Equipment Needs Assistive Devices Rolling / Wheeled Walker Plan PT Intervention Plan Bed Mobility,Transfers,Gait, Balance,Safety,Therapeutic Exercise PT Plan Frequency BID Duration LOS Discharge Goals Bed Transfer Ability Contact Guard/Hand Hold Sit to Stand Chair Transfer Ability Contact Guard/Hand Hold Ambulation Assistive Device Rolling Walker Ambulation Distance (feet) 10 Discharge Plan PT Discharge Plan Pt would benefit from short
--- NOTE | 2021-04-16 12:16 | HMH.OTEV ---
OT Inpatient Evaluation Rehab OT IP Evaluation Start: 04/15/21 17:32 Freq: ONCE Status: Complete Protocol: Document 04/16/21 12:06 FLORES (Rec: 04/16/21 12:16 FLORES [id number]) Rehab OT IP Assessment Subjective History *Admission Date: 04/15/21 *Chief complaint: Fracture of the left hip *History of present illness: Ms. Evans is a 70-year-old female with history of hypertension, GERD, anxiety, degenerative disc disease, low back pain, asthma, COPD, upper GI bleed, microvascular ischemic brain disease, tobacco abuse, esophageal varices, thrombocytopenia, hypertension, and cirrhosis,( Trejo) who presented to the emergency room after a fall. She noted that she tripped over her dog and fell and was unable to get up. Her zkbykyrt-pf-pwm did come to her house and found her on the floor approximately 30 minutes later. She was brought to [facility] for evaluation and was found to have a fractured left femoral head. She had multiple other x-rays/CTs which revealed no acute findings. She was thus admitted with an orthopedic consult. At the time of this exam patient denies chest pain and shortness of air. She has chronic lung issues and sustains a chronic cough. She denies any nausea or vomiting . She did receive morphine in the emergency room and is drowsy from this. She also received Zofran and a liter of IV fluids. Patient is s/p Closed nondisplaced valgus impacted femoral neck fracture LEFT hip as noted on the preoperative hip
--- NOTE | 2021-04-16 12:24 | HMH.ORTHPN ---
Subjective Date: 04/16/21 Time: 12:15 Principal diagnosis: Fracture neck of femur, left hip Interval history: Patient is status post cannulated screw fixation, LEFT hip post op day #1. Patient is sitting out in the chair and says she is doing well. Patient has minimal pain and says it's well-controlled with medication. No history of any nausea or vomiting. No history of any cough, chest pain, shortness of breath or palpitations. Patient says she is eating and drinking well. No history of any distal tingling or numbness. PN: Obj Ex Vital signs: Temp Pulse Resp BP Pulse Ox 99.8 F H 92 H 19 135/70 94 L 04/16/21 08:44 04/16/21 08:44 04/16/21 07:26 04/16/21 08:44 04/16/21 07:26 Narrative: Laboratory Results - last 24 hr 04/15/21 11:20: Antibody Screen Negative 04/15/21 18:55: Blood Type O Positive, Antibody Screen Negative 04/16/21 06:47: WBC 10.2, RBC 4.25, Hgb 13.3, Hct 40.7, MCV 95.8, MCH 31.2, MCHC 32.5, RDW 14.4, Plt Count 83 L, MPV 12.5 H, Neut % (Auto) 87.6 H, Lymph % (Auto) 6.4 L, [place] % (Auto) 6.0, Eos % (Auto) 0.0 L, Baso % (Auto) 0.0 L, Neut # (Auto) 9.0 H, Lymph # (Auto) 0.7, [place] # (Auto) 0.6, Eos # (Auto) 0.0, Baso # (Auto) 0.0, Total Counted 100, Neutrophils % (Manual) 78 H, Lymphocytes % (Manual) 19, Monocytes % (Manual) 3, Platelet Estimate Normal, RBC Morphology Normal 04/16/21 06:47: PT 13.1 H, INR 1.12 H 04/16/21 06:47: Sodium 132 L, Potassium 4.4, Chloride 98, Carbon Dioxide 26, Anion Gap 12.4, BUN 18 H, Creatinine 1.20 H, Estimated Creat Clear 51, Estimated GFR 44 L, Est GFR ( Amer) 53 L, Glucose 127 H, Calcium 8.1 L Exam: General appearance: alert, active, awake, no acute distress Cardiovascular: regular rate & rhythm, normal peripheral pulses Respiratory: No respiratory distress noted, speaks in full sentences ABD: soft and non tender Neuro: alert, awake, oriented x 3 Psych: Appropriate mood and affect Genitourinary: Catheter in situ. On examination of the lower extremities the limb lengths are equal. Thigh and calf are soft and nontender. On examination of the LEFT hip the dressings are clean, dry and intact. No evidence of any bleeding noted. Distal pulses are 2+. Distal sensation is intact to light touch throughout. No motor deficits noted distally. - Urinary Catheter Management Gardner Cath placed during this visit: no Progress Note: A&P (1) Hip fracture Status: Acute (2) Fall Status: Acute (3) COPD (chronic obstructive pulmonary disease) Status: Chronic (4) Hypertension Status: Chronic (5) GERD (gastroesophageal reflux disease) Status: Acute (6) TOVAR (nonalcoholic steatohepatitis) Status: Chronic (7) Renal insufficiency Status: Acute (8) Hyponatremia Status: Acute (9) Status post-operative repair of hip fracture Status: Acute Assessment and Plan for All Diagnoses:: I have reviewed the clinical findings and progress with the patient. Patient is doing well and reports no problems. Patient is mobilizing well weightbearing as tolerated on the LEFT side with the walker and to continue the same. Continue DVT prophylaxis-recommend DVT prophylaxis for 6 weeks postop. Discontinue IV fluids and the urinary catheter. Case management looking into discharge planning. Continue medical management as per Dr. Peña.
--- NOTE | 2021-04-16 14:11 | SW/DCPLANNER ---
Addendum entered by Reanna Watson 04/17/21 10:57: RECEIVED HOME HEALTH SERVICES FOR THIS PATIENT FOR PT/OT AND CUSTODIAL... PATIENT CHOSE [facility] HER AGENCY. PATIENT ALSO REQUESTED A BEDSIDE COMMODE AND ROLLING WALKER... THIS WILL BE DELIVERED TO THE HOSPITAL AND BEDSIDE COMMODE TO BE DELIVERED TO THE HOME.. FAMILY IS LOOKING FOR TRANSPORTATION TO GET HER HOME... Original Note: WENT IN TO SPEAK WITH PATIENT REGARDING DISCHARGE PLANNING: MS WALDRON HAD A HIP FRACTURE R/T A FALL WHEN HER DOG TRIPPED HER WHILE TRYING TO [place].. I ASKED HER WHAT PLANS ARE AND SHE WISHES TO GO HOME...PT/OT EVALUATED HER AND THINKS SHE COULD BENEFIT FROM SOME SKILLED REHAB BUT SHE HAS DONE WELL.. PATIENT ASKED IF I WOULD CALL HER DAUGHTER IN LAW, KRISTAL I DID BUT HAD TO LEAVE HER A MESSAGE..PATIENT HAS A [employer] INSURANCE THAT REQUIRES AUTHORIZATION.. IF INTERESTED IN LONG-TERM I WILL SEND IT TO [facility]...WAITING TO HEAR BACK..
--- NOTE | 2021-04-16 16:48 | PC.NURSE ---
D/cd IVF's per Dr. Bal and removed salguero cath. Dsg cdi to L Hip. RR even and unlabored. 96% on removed. VSS. Pt alert and oriented x 4. CB in reach. NAD. Pleasent.
--- NOTE | 2021-04-16 19:58 | PC.NURSE ---
BP 101/52, automatic cuff, supine
--- NOTE | 2021-04-17 03:46 | PC.NURSE ---
A&OX4. TOLERATING RA WELL. HAS REMAINED IN BED T/O SHIFT, SLEEPING MAJORITY OF TIME. PT C/O L HIP PAIN 5/10 AT BEGINNING OF SHIFT TX PER OCT. PT HAS HAD NO OTHER C/O THUS FAR. VSS WILL CONTINUE TO MONITOR.
[2021-04-17 04:00] VITALS: BP 111/60; PULSE 84; RESP 16; TEMP 36.7; O2SAT 95
[2021-04-17 05:28] VITALS: BMI 31.5
[2021-04-17 06:37] VITALS: PULSE 71; PULSE 78; O2SAT 89
[2021-04-17 07:05] LABS: Basophils % 0.2 % (0.1-2.0); Eosinophils # 0.1 K/mm3 (0.0-0.4); Eosinophils % 1.2 % (0.1-12.0); Hematocrit 38.5 % (37.0-47.0); Hemoglobin 12.8 g/dL (12.2-16.2); Lymphocytes % 16.6 % (10-50); Mean Corpuscular HGB Conc 33.2 g/dL (31.8-35.4); Mean Corpuscular Hemoglobin 31.6 pg (27.0-31.2); Mean Corpuscular Volume 95.2 fl (81-99); Mean Platelet Volume 12.3 fl (7.4-10.4); Monocytes # 0.6 K/mm3 (0.1-1.0); Monocytes % 11.2 % (1.7-9.3); Neutrophils % 70.8 % (37.0-80.0); Platelet Count 68 K/mm3 (142-424); Red Blood Count 4.04 M/mm3 (4.20-5.40); Red Cell Distribution Width 14.6 % (11.5-17.5); White Blood Count 5.7 K/mm3 (4.8-10.8)
[2021-04-17 07:17] LABS: Alanine Aminotransferase 23 U/L (12-78); Albumin Level 2.5 g/dl (3.5-5.0); Albumin/Globulin Ratio 0.9 (1.1-1.8); Alkaline Phosphatase 67 U/L (38-126); Anion Gap 8.7 mEq/L (5-15); Aspartate Amino Transferase 49 U/L (14-36); Bilirubin,Total 0.9 mg/dl (0.2-1.3); Blood Urea Nitrogen 20 mg/dl (7-17); Calcium 8.3 mg/dl (8.4-10.2); Carbon Dioxide 29 mmol/L (22.0-30.0); Chloride 99 mmol/L (98-107); Creatinine Clearance Estimated 47 mL/min (50-200); Estimated Glomerular Filt Rate 40 ml/min (>60); GFR (African American) 49 ML/MIN (>60); Globulin 2.7 g/dL (1.3-3.2); Glucose 113 mg/dl (74-100); Potassium 4.7 mmoL/L (3.5-5.1); Sodium 132 mmol/L (136-145); Total Protein,Serum 5.2 g/dl (6.3-8.2)
[2021-04-17 07:47] VITALS: BP 105/47; PULSE 87; RESP 18; TEMP 36.9; O2SAT 99
--- NOTE | 2021-04-17 08:48 | HMH.ACPN2 ---
Internal Medicine - PN: Jabier *Date: 04/17/21 *Time: 08:48 Interval history: Pt states she had a good night last night, no new complaints. Exam Vital signs and Labs for Last 24 Hours: Temp Pulse Resp BP Pulse Ox 98.5 F 87 18 105/47 L 99 04/17/21 07:47 04/17/21 07:47 04/17/21 07:47 04/17/21 07:47 04/17/21 07:47 Laboratory Results - last 24 hr 04/16/21 06:47: PT 13.1 H, INR 1.12 H 04/17/21 06:22: WBC 5.7 D, RBC 4.04 L, Hgb 12.8, Hct 38.5, MCV 95.2, MCH 31.6 H, MCHC 33.2, RDW 14.6, Plt Count 68 L, MPV 12.3 H, Neut % (Auto) 70.8, Lymph % (Auto) 16.6, [place] % (Auto) 11.2 H, Eos % (Auto) 1.2, Baso % (Auto) 0.2, Neut # (Auto) 4.0, Lymph # (Auto) 1.0, [place] # (Auto) 0.6, Eos # (Auto) 0.1, Baso # (Auto) 0.0 04/17/21 06:22: Sodium 132 L, Potassium 4.7, Chloride 99, Carbon Dioxide 29, Anion Gap 8.7, BUN 20 H, Creatinine 1.30 H, Estimated Creat Clear 47, Estimated GFR 40 L, Est GFR ( Amer) 49 L, Glucose 113 H, Calcium 8.3 L, Total Bilirubin 0.9, AST 49 H D, ALT 23, Alkaline Phosphatase 67, Total Protein 5.2 L, Albumin 2.5 L, Globulin 2.7, Albumin/Globulin Ratio 0.9 L Vital Signs - 24 hr 04/16/21 16:00 04/16/21 18:37 04/16/21 19:56 Temperature 98.3 F 98.6 F Pulse Rate 87 Pulse Rate [Right] 69 84 Respiratory Rate 20 20 Blood Pressure [Left Arm] Blood Pressure [Right Arm] 106/50 L 02 Sat by Pulse Oximetry 92 L 91 L 92 L 04/16/21 20:00 04/17/21 04:00 04/17/21 06:37 Temperature 98.6 F 98.1 F Pulse Rate 71 Pulse Rate [Right] 84 84 Respiratory Rate 20 16 Blood Pressure [Left Arm] Blood Pressure [Right Arm] 101/52 L 111/60 02 Sat by Pulse Oximetry 92 L 95 89 L 04/17/21 07:47 Temperature 98.5 F Pulse Rate Pulse Rate [Right] 87 Respiratory Rate 18 Blood Pressure [Left Arm] 105/47 L Blood Pressure [Right Arm] 02 Sat by Pulse Oximetry 99 I & O for Last 24 hours: Intake & Output 04/14/21 04/15/21 04/16/21 04/17/21 23:59 23:59 23:59 23:59 Intake Total 1320 / 1320 660 / 660 240 / 240 Output Total 700 / 700 1050 / 1050 250 / 250 Balance 620 / 620 -390 / -390 -10 / -10 Weight 160 lb 5 oz 168 lb 2 oz 167 lb 1 oz - Constitutional no acute distress - *Routine HEENT Exam Head: Present: normocephalic Eye: Present: EOMI, PERRL ENT: Present: mucous membranes moist - *Routine Neck Exam Present: supple. Absent: lymphadenopathy - *Routine Respiratory Exam Present: CTA bilaterally - *Routine Cardiovascular Exam Present: RRR - *Routine Abdominal Exam Present: soft, normoactive bowel sounds. Absent: tenderness - *Routine Extremities Exam Absent: cyanosis, clubbing - *Routine Skin Exam Present: warm - *Routine Neurological Exam Present: alert, oriented X3 Assessment and Plan (1) Hip fracture Status: Acute Qualifiers: Encounter type: initial encounter Fracture type: closed Laterality: left Qualified Code(s): S72.002A - Fracture of unspecified part of neck of left femur, initial encounter for closed fracture Category: Medical Code(s): S72.009A - Fracture of unspecified part of neck of unspecified femur, initial encounter for closed fracture (2) Fall Status: Acute Qualifiers: Encounter type: initial encounter Qualified Code(s): W19.XXXA - Unspecified fall, initial encounter Category: Medical Code(s): W19.XXXA - Unspecified fall, initial encounter (3) COPD (chronic obstructive pulmonary disease) Status: Chronic Category: Medical Code(s): J44.9 - Chronic obstructive pulmonary disease, unspecified (4) Hypertension Status: Chronic Category: Medical Code(s): I10 - Essential (primary) hypertension (5) GERD (gastroesophageal reflux disease) Status: Acute Category: Medical Code(s): K21.9 - Gastro-esophageal reflux disease without esophagitis (6) TOVAR (nonalcoholic steatohepatitis) Status: Chronic Category: Medical Code(s): K75.81 - Nonalcoholic steatohepatitis (TOVAR) (7) Renal insufficiency Sta
--- NOTE | 2021-04-17 08:50 | HMH.ACPN2 ---
Internal Medicine - PN: Subj *Date: 04/17/21 *Time: 07:45 Interval history: She is sitting up in bed using the incentive spirometer. She reports pain is minimal and well-controlled. She has ambulated with assistance to the bathroom and to the [facility]. She tolerated breakfast well. Exam Vital signs and Labs for Last 24 Hours: Temp Pulse Resp BP Pulse Ox 98.5 F 87 18 105/47 L 99 04/17/21 07:47 04/17/21 07:47 04/17/21 07:47 04/17/21 07:47 04/17/21 07:47 Laboratory Results - last 24 hr 04/16/21 06:47: PT 13.1 H, INR 1.12 H 04/17/21 06:22: WBC 5.7 D, RBC 4.04 L, Hgb 12.8, Hct 38.5, MCV 95.2, MCH 31.6 H, MCHC 33.2, RDW 14.6, Plt Count 68 L, MPV 12.3 H, Neut % (Auto) 70.8, Lymph % (Auto) 16.6, [place] % (Auto) 11.2 H, Eos % (Auto) 1.2, Baso % (Auto) 0.2, Neut # (Auto) 4.0, Lymph # (Auto) 1.0, [place] # (Auto) 0.6, Eos # (Auto) 0.1, Baso # (Auto) 0.0 04/17/21 06:22: Sodium 132 L, Potassium 4.7, Chloride 99, Carbon Dioxide 29, Anion Gap 8.7, BUN 20 H, Creatinine 1.30 H, Estimated Creat Clear 47, Estimated GFR 40 L, Est GFR ( Amer) 49 L, Glucose 113 H, Calcium 8.3 L, Total Bilirubin 0.9, AST 49 H D, ALT 23, Alkaline Phosphatase 67, Total Protein 5.2 L, Albumin 2.5 L, Globulin 2.7, Albumin/Globulin Ratio 0.9 L I & O for Last 24 hours: Intake & Output 04/14/21 04/15/21 04/16/21 04/17/21 11:59 11:59 11:59 11:59 Intake Total 1500 / 1500 720 / 720 Output Total 600 / 600 900 / 900 500 / 500 Balance -600 / -600 600 / 600 220 / 220 Weight 155 lb 168 lb 2 oz 167 lb 1 oz - Constitutional no acute distress - *Routine HEENT Exam Head: Present: normocephalic ENT: Present: mucous membranes moist - *Routine Respiratory Exam Absent: respiratory distress Comments: generally diminished with few bibasilar rales - *Routine Cardiovascular Exam Present: RRR - *Routine Abdominal Exam Present: soft, normoactive bowel sounds. Absent: tenderness, distended - *Routine Extremities Exam Present: pulses intact Comments: RLE with trace pedal/ankle edema and SCUD in place; LLE without edema; left hip dressing C/D/I - *Routine Neurological Exam Present: alert, oriented X3, moving all extremities Assessment and Plan (1) Hip fracture Status: Acute Qualifiers: Encounter type: initial encounter Fracture type: closed Laterality: left Qualified Code(s): S72.002A - Fracture of unspecified part of neck of left femur, initial encounter for closed fracture Category: Medical Code(s): S72.009A - Fracture of unspecified part of neck of unspecified femur, initial encounter for closed fracture (2) Fall Status: Acute Qualifiers: Encounter type: initial encounter Qualified Code(s): W19.XXXA - Unspecified fall, initial encounter Category: Medical Code(s): W19.XXXA - Unspecified fall, initial encounter (3) COPD (chronic obstructive pulmonary disease) Status: Chronic Category: Medical Code(s): J44.9 - Chronic obstructive pulmonary disease, unspecified (4) Hypertension Status: Chronic Category: Medical Code(s): I10 - Essential (primary) hypertension (5) GERD (gastroesophageal reflux disease) Status: Acute Category: Medical Code(s): K21.9 - Gastro-esophageal reflux disease without esophagitis (6) TOVAR (nonalcoholic steatohepatitis) Status: Chronic Category: Medical Code(s): K75.81 - Nonalcoholic steatohepatitis (TOVAR) (7) Renal insufficiency Status: Acute Category: Medical Code(s): N28.9 - Disorder of kidney and ureter, unspecified (8) Hyponatremia Status: Acute Category: Medical Code(s): E87.1 - Hypo-osmolality and hyponatremia (9) Status post-operative repair of hip fracture Status: Acute Category: Surgical Code(s): Z98.890 - Other specified postprocedural states; Z87.81 - Personal history of (healed) traumatic fracture - Assessment and plan all Dx Assessment and Plan for all problems:: Continue current care. Further per Dr. Bal.
--- NOTE | 2021-04-17 10:57 | PC.NURSE ---
Pt will benefit from a bedside commode and rolling walker r/t to limited mobility from hip surgery.
[2021-04-17 12:00] VITALS: BP 122/62; PULSE 81; RESP 20; TEMP 36.9; O2SAT 97
--- NOTE | 2021-04-17 13:11 | HMH.ORTHPN ---
Subjective Date: 04/17/21 Time: 12:00 Principal diagnosis: Fracture neck of femur, left hip Interval history: Patient is status post LEFT hip cannulated screw fixation, post op day #2. Patient is lying down on the bed and says she is doing well. Patient has minimal pain and says it's well-controlled with medication. No history of any nausea or vomiting. Patient says she is eating and drinking well. No history of any distal tingling or numbness. PN: Obj Ex Vital signs: Temp Pulse Resp BP Pulse Ox 98.5 F 81 20 122/62 97 04/17/21 12:00 04/17/21 12:00 04/17/21 12:00 04/17/21 12:00 04/17/21 12:00 Narrative: Laboratory Results - last 24 hr 04/17/21 06:22: WBC 5.7 D, RBC 4.04 L, Hgb 12.8, Hct 38.5, MCV 95.2, MCH 31.6 H, MCHC 33.2, RDW 14.6, Plt Count 68 L, MPV 12.3 H, Neut % (Auto) 70.8, Lymph % (Auto) 16.6, [place] % (Auto) 11.2 H, Eos % (Auto) 1.2, Baso % (Auto) 0.2, Neut # (Auto) 4.0, Lymph # (Auto) 1.0, [place] # (Auto) 0.6, Eos # (Auto) 0.1, Baso # (Auto) 0.0 04/17/21 06:22: Sodium 132 L, Potassium 4.7, Chloride 99, Carbon Dioxide 29, Anion Gap 8.7, BUN 20 H, Creatinine 1.30 H, Estimated Creat Clear 47, Estimated GFR 40 L, Est GFR ( Amer) 49 L, Glucose 113 H, Calcium 8.3 L, Total Bilirubin 0.9, AST 49 H D, ALT 23, Alkaline Phosphatase 67, Total Protein 5.2 L, Albumin 2.5 L, Globulin 2.7, Albumin/Globulin Ratio 0.9 L Exam: General appearance: alert, active, awake, no acute distress Cardiovascular: regular rate & rhythm, normal peripheral pulses Respiratory: No respiratory distress noted, speaks in full sentences ABD: soft and non tender Neuro: alert, awake, oriented x 3 Psych: Appropriate mood and affect On examination of the lower extremities the limb lengths are equal. Thigh and calf are soft and nontender. On examination of the LEFT hip the dressings are clean, dry and intact. The dressings are changed by me. There is minimal soakage of the dressings. The incision looks clean and healthy. Extensive ecchymosis noted around the incision. No evidence of any infection or other complications is noted. Distal pulses are 2+. Distal sensation is intact to light touch throughout. No motor deficits noted distally. - Urinary Catheter Management Gardner Cath placed during this visit: no Progress Note: A&P (1) Hip fracture Status: Acute (2) Fall Status: Acute (3) COPD (chronic obstructive pulmonary disease) Status: Chronic (4) Hypertension Status: Chronic (5) GERD (gastroesophageal reflux disease) Status: Acute (6) TOVAR (nonalcoholic steatohepatitis) Status: Chronic (7) Renal insufficiency Status: Acute (8) Hyponatremia Status: Acute (9) Status post-operative repair of hip fracture Status: Acute Assessment and Plan for All Diagnoses:: I have reviewed the clinical findings and progress with the patient. Patient is doing well and reports no problems. Patient is mobilizing well weightbearing as tolerated on the LEFT side with the walker and to continue the same. Continue DVT prophylaxis-recommend DVT prophylaxis for 6 weeks postop. Patient apparently refused placement into a [place] [facility] facility for rehab and is being discharged home with home health. Follow-up in my office in 2 weeks? time with check x-ray. Please feel free to call our office at [phone] for any orthopaedic questions. Continue medical management as per Dr. Peña.
--- NOTE | 2021-04-17 16:10 | HMH.PHAINT ---
MEDICATION DISCHARGE COUNSELING COMPLETE. PATIENT HAD NO QUESTIONS. TALKED WITH PATIENT ABOUT WATCHING FOR SIGNS OF BRUISING AND BLEEDING. PATIENT STATED SHE UNDERSTOOD.
--- NOTE | 2021-04-19 19:03 | HMH.DCSUM ---
General - General Admission date:: 04/15/21 Discharge date: 04/18/21 HPI HPI: Ms. Evans is a 70-year-old female with history of hypertension, GERD, anxiety, degenerative disc disease, low back pain, asthma, COPD, upper GI bleed, microvascular ischemic brain disease, tobacco abuse, esophageal varices, thrombocytopenia, hypertension, and cirrhosis,( [place]) who presented to the emergency room after a fall. She noted that she tripped over her dog and fell and was unable to get up. Her [id number] did come to her house and found her on the floor approximately 30 minutes later. She was brought to [facility] for evaluation and was found to have a fractured left femoral head. She had multiple other x-rays/CTs which revealed no acute findings. She was thus admitted with an orthopedic consult. At the time of exam patient denies chest pain and shortness of air. She was noted to have chronic lung issues and sustained a chronic cough. She denied any nausea or vomiting. She did receive morphine in the emergency room and was drowsy from this. She also received Zofran and a liter of IV fluids. Hospital Course Hospital Course: Patient was evaluated for the hip fracture on admission by orthopedics, Dr. Bal. On 04/15/2021 patient had a screw fixation of the left hip for her impacted nondisplaced fracture neck of the femur of the left hip. She tolerated the procedure well. She was started on postop care with physical therapy. She did have a cough and was started back on her duo nebs. Patient did well sitting up in a chair with minimal pain. She was able to eat without nausea or vomiting. IV fluids were able to be discontinued as well as her Gardner catheter. Care management was assisting with discharge planning. Patient related that she would rather have home rehab with home health. On 04/17/2021 she reported that her pain was minimal and well controlled. She was able to ambulate with assistance to the bathroom and the bed side commode and noted to be mobilizing well with weightbearing as tolerated on the left side with a walker. She continued to tolerate her diet. She was thus able to be discharged home on 04/17/2021 in stable and satisfactory condition. She was to have home health for assistance. She was to continue with DVT prophylaxis for at least 6 weeks postop. Follow-up with Dr. Peña on 05/01/[address] Bal on 04/22/2021. Medications as per medication reconciliation sheet. See data for specific test results. Objective Vital signs: Temp Pulse Resp BP Pulse Ox 98.5 F 81 20 122/62 97 04/17/21 12:00 04/17/21 12:00 04/17/21 12:00 04/17/21 12:00 04/17/21 12:00 Narrative: Exam Vital signs and Labs for Last 24 Hours: Temp Pulse Resp BP Pulse Ox 98.5 F 87 18 105/47 L 99 04/17/21 07:47 04/17/21 07:47 04/17/21 07:47 04/17/21 07:47 04/17/21 07:47 Laboratory Results - last 24 hr 04/16/21 06:47: PT 13.1 H, INR 1.12 H 04/17/21 06:22: WBC 5.7 D, RBC 4.04 L, Hgb 12.8, Hct 38.5, MCV 95.2, MCH 31.6 H, MCHC 33.2, RDW 14.6, Plt Count 68 L, MPV 12.3 H, Neut % (Auto) 70.8, Lymph % (Auto) 16.6, [place] % (Auto) 11.2 H, Eos % (Auto) 1.2, Baso % (Auto) 0.2, Neut # (Auto) 4.0, Lymph # (Auto) 1.0, [place] # (Auto) 0.6, Eos # (Auto) 0.1, Baso # (Auto) 0.0 04/17/21 06:22: Sodium 132 L, Potassium 4.7, Chloride 99, Carbon Dioxide 29, Anion Gap 8.7, BUN 20 H, Creatinine 1.30 H, Estimated Creat Clear 47, Estimated GFR 40 L, Est GFR ( Amer) 49 L, Glucose 113 H, Calcium 8.3 L, Total Bilirubin 0.9, AST 49 H D, ALT 23, Alkaline Phosphatase 67, Total Protein 5.2 L, Albumin 2.5 L, Globulin 2.7, Albumin/Globulin Ratio 0.9 L I & O for Last 24 hours: Intake & Output 04/14/21 04/15/21 04/16/21 04/17/21 11:59 11:59 11:59 11:59 Intake Total 1500 / 1500 720 / 720 Output Total 600 / 600 900 / 900 500 / 500 Balance -600 / -600 600 / 600 220 / 220 Weight 155 lb 168 lb 2 oz 167 lb 1 oz - C
== END 2021-04-17 16:20 | disposition home health service (06) ==
LOC: ER 02:59 → 2ND 04:45
PROVIDERS: Orthopaedic Surgery; Admitting Provider Family Medicine; Emergency Provider Emergency Medicine; PCP Family Medicine; Visit Provider Family Medicine
PROC: 0QH734Z Insertion of Internal Fixation Device into Left Upper Femur, Percutaneous Approach (ICD-10-PCS; principal; 2021-04-15 14:00)
DX: S72.002A Fracture of unspecified part of neck of left femur, initial encounter for closed fracture (principal); I10 Essential (primary) hypertension; J44.9 Chronic obstructive pulmonary disease, unspecified; Z20.822 Contact with and (suspected) exposure to COVID-19; W01.0XXA Fall on same level from slipping, tripping and stumbling without subsequent striking against object, initial encounter; Y92.019 Unspecified place in single-family (private) house as the place of occurrence of the external cause; K75.81 Nonalcoholic steatohepatitis (NASH); K21.9 Gastro-esophageal reflux disease without esophagitis; F17.210 Nicotine dependence, cigarettes, uncomplicated
CPT/HCPCS: 27235; 36415; 70450; 71045; 72125; 72128; 72131; 73030; 73502; 73700; 76000; 80048; 80053; 81001; 84145; 84484; 85007; 85025; 85610; 85651; 86140; 86850; 93005; 93306; 93308; 94640; 96365; 96375; 97116; 97162; 97165; 97530; 99284; C1713; G0378; J2405; J3370; U0003

== ENCOUNTER → 2021-05-21 18:36 | Outpatient (CLI) | payer MEDICARE, MEDICAID, SELFPAY ==
--- NOTE | 2021-05-21 18:46 | XR_ITS ---
PROCEDURE INFORMATION: Exam: XR Left Hip Exam date and time: 05/21/2021 6:46 PM Age: 70 years old Clinical indication: Screening exam; F/u to left hip fracture that occurred March 2021. Patient had surgery on left hip at that time. ; Prior surgery; Surgery date: 1-6 months; Surgery type: Screws in left hip. ; Additional info: Cannulated screw fixation, left hip TECHNIQUE: Imaging protocol: XR Left hip. Views: 2 or 3 views hip with pelvis when performed. COMPARISON: XA XR HIP LT 2-3V W/PELVIS 04/15/2021 2:19 PM FINDINGS: Bones/joints: Bones appear osteopenic. Three screws are seen in the left femur. The most inferior one with the washer appears partially backed out. Left subcapital fracture again seen. Alignment is suboptimal. Question refracture. Soft tissues: Unremarkable. IMPRESSION: Question refracture of left proximal femur. Orthopedic opinion suggested.
== END ==
PROVIDERS: PCP Family Medicine; Visit Provider Orthopaedic Surgery
DX: Z09 Encounter for follow-up examination after completed treatment for conditions other than malignant neoplasm (principal)
CPT/HCPCS: 73502

== ENCOUNTER 2021-05-27 08:54 | Day surgery (SDC) | payer MEDICARE, MEDICAID, SELFPAY ==
[2021-05-27] VITALS (8 sets, daily range): BP systolic 115–133; BP diastolic 53–65; PULSE 77–84; RESP 16–18; TEMP 36.1–36.3; O2SAT 97–100; BMI 29.5
[2021-05-27 08:10] LABS: Coronavirus 19, PCR Not Detected (NotDetected); Influenza A, PCR Not Detected (NotDetected); Influenza B, PCR Not Detected (NotDetected)
== END 2021-05-27 11:00 | disposition home or self-care (01) ==
LOC: OR 08:55
PROVIDERS: PCP Family Medicine; Visit Provider Ophthalmology
DX: H25.813 Combined forms of age-related cataract, bilateral (principal); H02.831 Dermatochalasis of right upper eyelid; H02.834 Dermatochalasis of left upper eyelid; H57.03 Miosis; J45.909 Unspecified asthma, uncomplicated; I10 Essential (primary) hypertension; Z86.73 Personal history of transient ischemic attack (TIA), and cerebral infarction without residual deficits; Z88.6 Allergy status to analgesic agent; Z88.0 Allergy status to penicillin; Z88.2 Allergy status to sulfonamides
CPT/HCPCS: 66984; C9803; U0003; U0005; V2632

== ENCOUNTER 2021-06-09 16:42 | Emergency (ER) | payer MEDICARE, MEDICAID, SELFPAY ==
[2021-06-09 16:58] VITALS: BMI 29.5
--- NOTE | 2021-06-09 16:59 | XR_ITS ---
PROCEDURE INFORMATION: Exam: XR Left Knee Exam date and time: 06/09/2021 4:59 PM Age: 70 years old Clinical indication: Injury or trauma; Fall; Blunt trauma; Knee; Left; Injury date: 06/09/21; Additional info: Fall, she tripped and fell pain in hips, left knee, pelvis and butt TECHNIQUE: Imaging protocol: XR Left knee. Views: 1 or 2 views. COMPARISON: CT HIP LT WO CON 04/15/2021 1:35 AM FINDINGS: Bones/joints: Bones appear mildly demineralized.No acute fracture or dislocation. Lateral view shows a mild chronic appearing deformity of the fibular neck with cortical-periosteal thickening suggesting old healed injury or chronic stress reaction. There is moderate medial knee joint space narrowing suggesting underlying chondromalacia, and there is also chondrocalcinosis in the lateral compartment of the knee joint. Small medial periarticular bone spurs. Minimal superior patellar spurring at the patellofemoral joint. Moderate superior patellar enthesophyte at the quadriceps tendon attachment.There are no lytic skeletal lesions seen. Trace knee joint fluid, no significant effusion seen. Soft tissues: Mild periarticular swelling, greatest medially and anteriorly. Vasculature: Multiple calcified atherosclerotic plaques in the superficial femoral, popliteal and proximal calf arteries. IMPRESSION: 1. No acute appearing fracture or dislocation. 2. Osteopenia/osteoporosis. 3. Degenerative changes in the knee. 4. Atherosclerotic disease.
--- NOTE | 2021-06-09 16:59 | XR_ITS ---
PROCEDURE INFORMATION: Exam: XR Sacrum and Coccyx, 2 or More Views Exam date and time: 06/09/2021 4:59 PM Age: 70 years old Clinical indication: Injury or trauma; Fall; Blunt trauma (contusions or hematomas); Injury date: 06/09/21; Additional info: Fall, she tripped and fell pain in hips, left knee, pelvis and butt TECHNIQUE: Imaging protocol: XR of the sacrum and coccyx, 2 or more views. COMPARISON: CR XR HIP LT 2-3V W/PELVIS 06/09/2021 5:07 PM FINDINGS: Bones/joints: Bones appear diffusely demineralized suggesting osteopenia/osteoporosis. The lateral view shows an area of indistinct, radiolucent cortex along the anterior sacrum at the S3-S4 level, of indeterminate etiology; this could be lytic lesion or injury, versus artifact. No abnormality is seen in this region on prior CT of 04/15/2021. Mild bilateral sacroiliitis with slight periarticular sclerosis, minimal spurring. The coccyx is poorly visualized on the lateral views, due to prominent bone demineralization. Soft tissues: No acute findings. Intraperitoneal space: Surgical clips in the lower right pelvis. Vasculature: Atherosclerotic calcified plaques in the visualized abdomen and pelvis. IMPRESSION: 1. Radiolucency of the anterior cortex of the sacrum at the S3-S4 level, which could be artifactual versus lytic change or injury. 2. No other evidence of fracture or dislocation. 3. Coccyx is poorly seen due to osteopenia/osteoporosis and large body habitus.
--- NOTE | 2021-06-09 16:59 | XR_ITS ---
PROCEDURE INFORMATION: Exam: XR Left Hip Exam date and time: 06/09/2021 4:59 PM Age: 70 years old Clinical indication: Injury or trauma; Fall; Blunt trauma (contusions or hematomas); Bilateral; Hip; Injury date: 06/09/21; Additional info: Fall, she tripped and fell pain in hips, left knee, pelvis and butt TECHNIQUE: Imaging protocol: XR Left hip. Views: 2 or 3 views hip with pelvis when performed. COMPARISON: CR XR HIP LT 2-3V W/PELVIS 05/21/2021 6:55 PM FINDINGS: Bones/joints: Fixation hardware in the proximal left femur is unchanged. No interval loosening or infection compared with 05/21/2021. Bones appear diffusely demineralized. Some degenerative enthesophytes of the pelvis. Multilevel lumbar degenerative changes with disc narrowing, spondylosis . There are no lytic skeletal lesions seen. Hip joint spaces are well preserved. Mild arthritic changes along the lateral right and left acetabula. Soft tissues: No acute findings. Intraperitoneal space: Multiple surgical clips in the lower pelvis greater toward the right. Vasculature: Atherosclerotic calcified plaques in the abdomen and pelvis, and extending into both lower extremities. IMPRESSION: 1. No new fracture or dislocation. 2. Left femur fixation hardware remains intact with no change in alignment, no evidence of loosening or infection. 3. Degenerative changes in the lumbosacral spine and hips. 4. Atherosclerotic disease. 5. Osteopenia.
--- NOTE | 2021-06-09 16:59 | XR_ITS ---
PROCEDURE INFORMATION: Exam: XR Right Hip Exam date and time: 06/09/2021 4:59 PM Age: 70 years old Clinical indication: Injury or trauma; Fall; Blunt trauma (contusions or hematomas); Bilateral; Hip; Injury date: 06/09/21; Additional info: Fall, she tripped and fell pain in hips, left knee, pelvis and butt TECHNIQUE: Imaging protocol: XR Right hip. Views: 2 or 3 views hip with pelvis when performed. COMPARISON: CR PELAP PELVIS AP ONLY 06/09/2016 10:03 PM FINDINGS: Bones/joints: Osteopenia, bones appear diffusely demineralized. No acute fracture or dislocation at the right hip. Hip joint space is well preserved. Mild degenerative changes of the lateral right acetabulum. Pelvic enthesophytes. For left hip findings, please see the left hip report. Soft tissues: No acute findings in the soft tissues. Intraperitoneal space: Surgical clips in the lower right pelvis. Vasculature: Atherosclerotic calcified plaques in the abdomen and pelvis, and in the groins. IMPRESSION: 1. No acute fracture or dislocation. 2. Mild degenerative changes at the right hip joint. 3. Atherosclerotic disease. 4. Osteopenia. 5. Additional nonemergency and chronic findings as above.
[2021-06-09 17:00] VITALS: BP 154/68; PULSE 87; RESP 18; TEMP 36.7; O2SAT 98; BMI 29.5
--- NOTE | 2021-06-09 17:12 | HMH.EDFALL ---
ED Disposition Clinical Impression: Fall (on) (from) other stairs and steps, initial encounter Sprain of right hip Qualifiers: Encounter type: initial encounter Qualified Code(s): S73.101A - Unspecified sprain of right hip, initial encounter Disposition: Home, Self-Care Condition on Discharge: Good Instructions: How to Prevent Falls Referrals: Presley Peña MD [Primary Care Provider] - - Critical Care Critical Care Time: No Attestation: On 06/09/21, the high probability of a clinically significant, sudden or life threatening deterioration of the following system(s) required my full and direct attention, intervention and personal management. The time I documented below is in addition to time spent performing reported procedures but includes the following listed in this critical care notation. Medical Decision Making - Medical Records Medical records reviewed: Yes: I reviewed the patient's medical records. - Jared Inquiry Pt receiving controlled substance: No Vital Signs: 06/09/21 17:00 Temperature 98.1 F Temperature Source Oral Pulse Rate [Left Radial] 87 Respiratory Rate 18 Blood Pressure [Right Arm] 154/68 H Blood Pressure Mean [Right Arm] 96 Blood Pressure Source [Right Arm] Automatic Cuff Blood Pressure Position [Right Arm] Sitting 02 Sat by Pulse Oximetry 98 Oxygen Delivery Method Room Air - Radiology Data #1 Image(s): Pelvis, Hip Image Reviewed: Yes I reviewed the patient's radiology results, Yes I reviewed the patient's radiology image, Yes I have reviewed radiologist's interpretation IMPRESSION: 1. No acute appearing fracture or dislocation. 2. Osteopenia/osteoporosis. 3. Degenerative changes in the knee. 4. Atherosclerotic disease. IMPRESSION: 1. No new fracture or dislocation. 2. Left femur fixation hardware remains intact with no change in alignment, no evidence of loosening or infection. 3. Degenerative changes in the lumbosacral spine and hips. 4. Atherosclerotic disease. 5. Osteopenia. IMPRESSION: 1. No acute fracture or dislocation. 2. Mild degenerative changes at the right hip joint. 3. Atherosclerotic disease. 4. Osteopenia. 5. Additional nonemergency and chronic findings as above. IMPRESSION: 1. Radiolucency of the anterior cortex of the sacrum at the S3-S4 level, which could be artifactual versus lytic change or injury. 2. No other evidence of fracture or dislocation. 3. Coccyx is poorly seen due to osteopenia/osteoporosis and large body habitus. - Reevaluation(s) Time: 18:22 Reevaluation #1: On reevaluation, patient is feeling better. Repeat musculoskeletal exam does not show any deformity. X-rays unremarkable. Patient will follow up with PCP in 48 hours. Given strict return precautions. Verbalized understanding. Medical Decision Narrative: 70-year-old female presented to the emergency department with some right hip pain after accidental Fall. Patient does not meet imaging criteria for the head and cervical spine. Work-up initiated. Fall HPI - General Chief Complaint: Fall Stated Complaint: AO06/05 fell injured both hip Time Seen by Provider: 06/09/21 17:05 Mode of Arrival: Ambulatory Limitations: No Limitations Description of Symptoms (Recalled from ER Triage Doc. by RN): pt to ed per pvt car. pt states she fell on 05/12 and broke her left hip. pt reports having surgery to repair her left hip on 05/15. Pt states she fell again on 06/05 but never seeked out care for the fall. Pt states today she is having severe pain in bilateral hips, coccyx, and her left knee. Pt reports losing her footing and falling on her left side on 06/05. - History of Present Illness HPI Narrative: This is a 70-year-old female presented to the emergency department after a fall. The patient states that she was doing laundry couple days ago and she accidentally tripped over and fell. She complaining of some right hip pain, tailbone pain and pain in
[2021-06-09 19:20] VITALS: BP 147/87; PULSE 80; RESP 18; TEMP 36.7; O2SAT 98
== END 2021-06-09 19:21 | disposition home or self-care (01) ==
PROVIDERS: Emergency Provider Emergency Medicine; PCP Family Medicine
DX: S73.101A Unspecified sprain of right hip, initial encounter (principal); W10.9XXA Fall (on) (from) unspecified stairs and steps, initial encounter; Y92.019 Unspecified place in single-family (private) house as the place of occurrence of the external cause; J44.9 Chronic obstructive pulmonary disease, unspecified; F41.8 Other specified anxiety disorders; K21.9 Gastro-esophageal reflux disease without esophagitis; I10 Essential (primary) hypertension; F17.210 Nicotine dependence, cigarettes, uncomplicated
CPT/HCPCS: 72220; 73502; 73560; 99282

== ENCOUNTER → 2021-06-13 17:27 | Outpatient (CLI) | payer MEDICARE, MEDICAID, SELFPAY ==
[2021-06-13 17:50] LABS: Basophils % 0.4 % (0.1-2.0); Eosinophils # 0.6 K/mm3 (0.0-0.4); Eosinophils % 8.8 % (0.1-12.0); Hematocrit 39.5 % (37.0-47.0); Hemoglobin 12.8 g/dL (12.2-16.2); Lymphocytes # 0.9 K/mm3 (0.7-4.5); Mean Corpuscular HGB Conc 32.5 g/dL (31.8-35.4); Mean Corpuscular Volume 95.5 fl (81-99); Mean Platelet Volume 12.6 fl (7.4-10.4); Monocytes # 0.5 K/mm3 (0.1-1.0); Neutrophils # 4.2 K/mm3 (1.8-7.8); Neutrophils % 67.8 % (37.0-80.0); Platelet Count 74 K/mm3 (142-424); Red Blood Count 4.14 M/mm3 (4.20-5.40); Red Cell Distribution Width 14.8 % (11.5-17.5); White Blood Count 6.2 K/mm3 (4.8-10.8)
[2021-06-13 18:49] LABS: Alanine Aminotransferase 23 U/L (12-78); Albumin Level 2.6 g/dl (3.5-5.0); Albumin/Globulin Ratio 0.8 (1.1-1.8); Alkaline Phosphatase 91 U/L (38-126); Aspartate Amino Transferase 38 U/L (14-36); Bilirubin,Total 1.2 mg/dl (0.2-1.3); Blood Urea Nitrogen 29 mg/dl (7-17); Calcium 8.9 mg/dl (8.4-10.2); Carbon Dioxide 25 mmol/L (22.0-30.0); Chloride 99 mmol/L (98-107); Estimated Glomerular Filt Rate 40 ml/min (>60); GFR (African American) 49 ML/MIN (>60); Globulin 3.2 g/dL (1.3-3.2); Glucose 142 mg/dl (74-100); Sodium 131 mmol/L (136-145); Total Protein,Serum 5.8 g/dl (6.3-8.2)
== END ==
PROVIDERS: Visit Provider Family Medicine
DX: I10 Essential (primary) hypertension (principal)
CPT/HCPCS: 80053; 85025

== ENCOUNTER → 2021-07-30 14:43 | Outpatient (CLI) | payer MEDICARE, MEDICAID, SELFPAY ==
--- NOTE | 2021-07-30 14:48 | XR_ITS ---
PROCEDURE: XR HIP LT 2-3V W/PELVIS CLINICAL INDICATION: sp left hip cannulated screw fixation COMPARISON: CR XR HIP LT 2-3V W/PELVIS from 05/21/2021 CR XR HIP LT 2-3V W/PELVIS from 06/09/2021 FINDINGS: Status post cannulated screw fixation of the left femoral neck fracture with mild foreshortening of the fracture fragments. There is good alignment. The heads of the screws appears slightly distracted compared to the previous study. This however may only be related to the angle of positioning. Continued follow-up suggested. There is generalized vascular calcification. Mild osteoarthritic changes are present involving the hips. IMPRESSION: Status post cannulated screw fixation of left femoral neck fracture with good alignment with mild foreshortening. There is questionable strike ruelas of the screws however, this could be related to patient positioning. Continued follow-up suggested. Dictated by: Ricco Rivero MD 07/30/2021 16:00 Ricco Rivero MD in [place] 07/30/2021 16:00
== END ==
PROVIDERS: PCP Family Medicine; Visit Provider Orthopaedic Surgery
DX: Z09 Encounter for follow-up examination after completed treatment for conditions other than malignant neoplasm (principal)
CPT/HCPCS: 73502

== ENCOUNTER 2021-08-11 14:51 | Emergency (ER) | payer MEDICARE, MEDICAID, SELFPAY ==
[2021-08-11 14:52] VITALS: BP 104/64; PULSE 91; RESP 18; TEMP 37.1; O2SAT 97; BMI 27.1
--- NOTE | 2021-08-11 15:03 | XR_ITS ---
PROCEDURE: XR CHEST PORTABLE CLINICAL HISTORY: edema, soa COMPARISON: CR CXR CHEST(2 VIEWS-NOT PORTABLE) from 12/22/2014 CR XR CHEST AP from 04/15/2021 FINDINGS: The cardiomediastinal silhouette and pulmonary vascularity are within normal limits. There is a small right pleural effusion. Atelectasis or infiltrate in the right lung base. Degenerative changes of the shoulders IMPRESSION: Right-sided pleural effusion with atelectasis or infiltrate in the right lower lobe Dictated by: Ricco Rivero MD 08/11/2021 15:42 Ricco Rivero MD in [place] 08/11/2021 15:42
--- NOTE | 2021-08-11 15:04 | HMH.EDLOEX ---
ED Disposition Clinical Impression: Bilateral lower leg cellulitis, Edema of both legs, Pleural effusion Disposition: Home, Self-Care Condition on Discharge: Good Instructions: DI for Peripheral Edema -- Bilateral, Pleural Effusion, Cellulitis, DI for Cellulitis -- Adult Additional Instructions: follow up PCP, return for worse Prescriptions: Cefdinir [Omnicef 300mg Capsule] 300 mg PO BID #20 cap Transmission Status: Pending to [id number] Referrals: Presley Peña MD [Primary Care Provider] - Time of Disposition: 16:02 - Critical Care Critical Care Time: No Attestation: On , the high probability of a clinically significant, sudden or life threatening deterioration of the following system(s) required my full and direct attention, intervention and personal management. The time I documented below is in addition to time spent performing reported procedures but includes the following listed in this critical care notation. Medical Decision Making - Jared Inquiry Pt receiving controlled substance: No Vital Signs: 08/11/21 14:52 Temperature 98.7 F Temperature Source Oral Pulse Rate [Left Radial] 91 H Respiratory Rate 18 Blood Pressure [Right Arm] 104/64 L Blood Pressure Mean [Right Arm] 77 Blood Pressure Source [Right Arm] Automatic Cuff Blood Pressure Position [Right Arm] Sitting 02 Sat by Pulse Oximetry 97 Oxygen Delivery Method Room Air - Lab Data Lab Results 08/11/21 15:35: WBC 5.5, RBC 3.91 L, Hgb 12.1 L, Hct 38.1, MCV 97.3, MCH 30.9, MCHC 31.8, RDW 14.9, Plt Count 77 L, MPV 12.1 H, Neut % (Auto) 72.4, Lymph % (Auto) 14.6, [place] % (Auto) 10.6 H, Eos % (Auto) 1.6, Baso % (Auto) 0.7, Neut # (Auto) 4.0, Lymph # (Auto) 0.8, [place] # (Auto) 0.6, Eos # (Auto) 0.1, Baso # (Auto) 0.0 08/11/21 15:35: Sodium 132 L, Potassium 3.5, Chloride 99, Carbon Dioxide 30, Anion Gap 6.5, BUN 14, Creatinine 1.20 H, Estimated Creat Clear 49, Estimated GFR 44 L, Est GFR ( Amer) 53 L, Glucose 107 H, Calcium 10.1, Total Bilirubin 1.6 H, AST 28, ALT 25, Alkaline Phosphatase 110, Total Protein 6.1 L, Albumin 2.5 L, Globulin 3.6 H, Albumin/Globulin Ratio 0.7 L Result diagrams: 08/11/21 15:35 08/11/21 15:35 Orders (Tests/Meds): ORDERS Category Date Time Status Urinalysis and Microscopic Stat Lab 08/11/21 15:08 Ordered Medical Decision Narrative: no hypoxia here, le edema likely due to cellulitis with chronic edema, ok with plan to rx abx and continue home lasix and f/u pcp Lower Extremity Injury HPI - General Stated Complaint: bilateral swollen/leaking legs Time Seen by Provider: 08/11/21 15:04 Limitations: No Limitations - History of Present Illness HPI Narrative: says she stopped taking her meds including water pill few weeks ago because got tired of taking pills and then restarted them 1 week ago today c/o katie le edema Onset (ago): day(s) Severity: moderate Relieving factors: nothing Other symptoms: none - Related Data Home Medications Medication Instructions Recorded Confirmed Trazodone HCl 50 mg PO DAILY 04/08/21 07/30/21 Previous Rx's Medication Instructions Recorded Cefdinir [Omnicef 300mg Capsule] 300 mg PO BID #20 cap 08/11/21 Allergies Allergy/AdvReac Type Severity Reaction Status Date / Time codeine [CODEINE] Allergy Intermediate I-RASH Verified 07/30/21 16:31 Penicillins [PENICILLINS] Allergy Intermediate I-RASH Verified 07/30/21 16:31 Sulfa (Sulfonamide Allergy Mild NA-NAUSEA/V Verified 07/30/21 16:31 Antibiotics) OMITING [SULFA (SULFONAMIDE ANTIBIOTICS)] [facility] History - Hepatitis A Screen Attestation statement:: This patient has been screened for Hepatitis A risk factors. Medical History: Reports:: Anxiety, Asthma, Chronic Obstructive Pulmonary Disease (COPD), Depression, Gastroesophageal Reflux Disease(GERD), Hypertension Denies:: Cancer, Diabetes Mellitus Type 1, Diabetes Mellitus Type 2, Internal Pacemaker, MRSA, Seizures
[2021-08-11 15:43] LABS: Basophils % 0.7 % (0.1-2.0); Eosinophils # 0.1 K/mm3 (0.0-0.4); Eosinophils % 1.6 % (0.1-12.0); Hematocrit 38.1 % (37.0-47.0); Hemoglobin 12.1 g/dL (12.2-16.2); Lymphocytes # 0.8 K/mm3 (0.7-4.5); Lymphocytes % 14.6 % (10-50); Mean Corpuscular HGB Conc 31.8 g/dL (31.8-35.4); Mean Corpuscular Hemoglobin 30.9 pg (27.0-31.2); Mean Corpuscular Volume 97.3 fl (81-99); Mean Platelet Volume 12.1 fl (7.4-10.4); Monocytes # 0.6 K/mm3 (0.1-1.0); Monocytes % 10.6 % (1.7-9.3); Neutrophils % 72.4 % (37.0-80.0); Platelet Count 77 K/mm3 (142-424); Red Blood Count 3.91 M/mm3 (4.20-5.40); Red Cell Distribution Width 14.9 % (11.5-17.5); White Blood Count 5.5 K/mm3 (4.8-10.8)
[2021-08-11 15:48] LABS: Chloride 99 mmol/L (98-107); Potassium 3.5 mmoL/L (3.5-5.1); Sodium 132 mmol/L (136-145)
[2021-08-11 15:51] LABS: Alanine Aminotransferase 25 U/L (12-78); Albumin Level 2.5 g/dl (3.5-5.0); Albumin/Globulin Ratio 0.7 (1.1-1.8); Alkaline Phosphatase 110 U/L (38-126); Anion Gap 6.5 mEq/L (5-15); Aspartate Amino Transferase 28 U/L (14-36); Bilirubin,Total 1.6 mg/dl (0.2-1.3); Blood Urea Nitrogen 14 mg/dl (7-17); Carbon Dioxide 30 mmol/L (22.0-30.0); Creatinine Clearance Estimated 49 mL/min (50-200); Estimated Glomerular Filt Rate 44 ml/min (>60); GFR (African American) 53 ML/MIN (>60); Globulin 3.6 g/dL (1.3-3.2); Total Protein,Serum 6.1 g/dl (6.3-8.2)
[2021-08-11 15:52] LABS: Calcium 10.1 mg/dl (8.4-10.2); Glucose 107 mg/dl (74-100)
[2021-08-11 17:09] VITALS: BP 101/55; PULSE 87; RESP 17; TEMP 36.8; O2SAT 98
== END 2021-08-11 17:10 | disposition home or self-care (01) ==
PROVIDERS: Emergency Provider Emergency Medicine; PCP Family Medicine
DX: L03.116 Cellulitis of left lower limb (principal); J90 Pleural effusion, not elsewhere classified; R60.0 Localized edema; J44.9 Chronic obstructive pulmonary disease, unspecified; K21.9 Gastro-esophageal reflux disease without esophagitis; I10 Essential (primary) hypertension; F17.210 Nicotine dependence, cigarettes, uncomplicated
CPT/HCPCS: 71045; 80053; 85025; 99283

== ENCOUNTER 2021-10-12 20:01 | Inpatient (IN) | payer MEDICARE, MEDICAID, SELFPAY ==
[2021-10-12 20:01] VITALS: BP 110/62; PULSE 55; RESP 14; TEMP 36.9; O2SAT 94; BMI 23.1
[2021-10-12 20:11] LABS: POC Glucose,Bedside 127 (70-110)
[2021-10-12 20:14] VITALS: BMI 24.0
--- NOTE | 2021-10-12 20:16 | CT_ITS ---
PROCEDURE INFORMATION: Exam: CT Head Without Contrast Exam date and time: 10/12/2021 8:16 PM Age: 71 years old Clinical indication: Altered mental status/memory loss; Confusion or disorientation TECHNIQUE: Imaging protocol: Computed tomography of the head without contrast. Radiation optimization: All CT scans at this facility use at least one of these dose optimization techniques: automated exposure control; mA and/or kV adjustment per patient size (includes targeted exams where dose is matched to clinical indication); or iterative reconstruction. COMPARISON: CT CERVICAL SPINE WO CON 04/15/2021 1:23 AM FINDINGS: Brain: Atrophy and chronic small vessel ischemic changes. No hemorrhage. No mass effect or midline shift. Cerebral ventricles: No ventriculomegaly. Paranasal sinuses: Visualized sinuses are unremarkable. No fluid levels. Mastoid air cells: Visualized mastoid air cells are well aerated. Bones/joints: Unremarkable. No acute fracture. Soft tissues: Unremarkable. IMPRESSION: Chronic changes in the brain but no acute intracranial abnormality.
--- NOTE | 2021-10-12 20:16 | XR_ITS ---
PROCEDURE INFORMATION: Exam: XR Chest Exam date and time: 10/12/2021 8:16 PM Age: 71 years old Clinical indication: Other: Confusion TECHNIQUE: Imaging protocol: XR of the chest. Views: 1 view. COMPARISON: CR XR CHEST PORTABLE 08/11/2021 3:20 PM FINDINGS: Lungs: Hazy interstitial opacities in both lungs concerning for interstitial pneumonia. Granulomatous change. Pleural spaces: Unremarkable. No pleural effusion. No pneumothorax. Heart/Mediastinum: Cardiomegaly. Bones/joints: Unremarkable. IMPRESSION: Interstitial opacities bilaterally concerning for pneumonia. Correlate clinically.
[2021-10-12 20:36] LABS: Microscopic, Urine URINE MICROSCOPIC (MICROSCOPIC)
[2021-10-12 20:40] LABS: Basophils % 0.2 % (0.1-2.0); Eosinophils # 0.1 K/mm3 (0.0-0.4); Eosinophils % 0.6 % (0.1-12.0); Hematocrit 40.1 % (37.0-47.0); Hemoglobin 13.5 g/dL (12.2-16.2); Lymphocytes # 0.8 K/mm3 (0.7-4.5); Lymphocytes % 10.1 % (10-50); Mean Corpuscular HGB Conc 33.8 g/dL (31.8-35.4); Mean Corpuscular Hemoglobin 31.6 pg (27.0-31.2); Mean Corpuscular Volume 93.7 fl (81-99); Mean Platelet Volume 9.9 fl (7.4-10.4); Monocytes # 0.6 K/mm3 (0.1-1.0); Monocytes % 7.4 % (1.7-9.3); Neutrophils # 6.7 K/mm3 (1.8-7.8); Neutrophils % 81.7 % (37.0-80.0); Platelet Count 116 K/mm3 (142-424); Red Blood Count 4.28 M/mm3 (4.20-5.40); Red Cell Distribution Width 15.9 % (11.5-17.5); White Blood Count 8.2 K/mm3 (4.8-10.8)
[2021-10-12 20:41] LABS: Appearance,Urine CLEAR (Clear); Blood, Urine Negative (Negative); Color,Urine ORANGE (Yellow); Glucose,Urine (UA) Negative (Negative); Ketones,Urine Negative (Negative); Leukocyte Esterase,Urine Negative (Negative); PH,Urine 5.5 (5.0-8.5); Protein,Urine TRACE (Negative); Specific Gravity, Urine >= 1.030 (1.005-1.030)
[2021-10-12 20:45] LABS: Bilirubin,Urine 1+ (Negative)
[2021-10-12 20:46] LABS: Alanine Aminotransferase 32 U/L (12-78); Albumin Level 2.7 g/dl (3.5-5.0); Alkaline Phosphatase 98 U/L (38-126); Anion Gap 9.5 mEq/L (5-15); Aspartate Amino Transferase 35 U/L (14-36); Bilirubin, Conjugated 0.4 mg/dL (0.0-0.3); Bilirubin,Direct 1.3 mg/dl (0.0-0.4); Bilirubin,Indirect 2.7 mg/dL (0.0-0.9); Bilirubin,Unconjugated 2.7 mg/dL (0.0-1.1); Blood Urea Nitrogen 28 mg/dl (7-17); Calcium 9.5 mg/dl (8.4-10.2); Carbon Dioxide 26 mmol/L (22.0-30.0); Chloride 95 mmol/L (98-107); Creatinine Clearance Estimated 42 mL/min (50-200); Estimated Glomerular Filt Rate 44 ml/min (>60); GFR (African American) 53 ML/MIN (>60); Glucose 142 mg/dl (74-100); Potassium 3.5 mmoL/L (3.5-5.1); Sodium 127 mmol/L (136-145); Total Protein,Serum 6.1 g/dl (6.3-8.2)
[2021-10-12 20:49] LABS: Amorphous Sediment,Urine 2+ /lpf; Nitrate,Urine POSITIVE (Negative)
[2021-10-12 20:50] LABS: Mucus,Urine 2+ /lpf
[2021-10-12 20:51] LABS: C-Reactive Protein 51.1 mg/L (0-4)
[2021-10-12 20:52] LABS: Ammonia 10 umol/L (9-30)
[2021-10-12 20:54] LABS: Lactic Acid 4.7 mmol/L (0.7-2.1)
[2021-10-12 20:54] LABS: Coronavirus 19, PCR Not Detected (NotDetected); Influenza A, PCR Not Detected (NotDetected); Influenza B, PCR Not Detected (NotDetected)
--- NOTE | 2021-10-12 20:55 | HMH.EDAMS ---
ED Disposition Clinical Impression: Delirium due to general medical condition COPD (chronic obstructive pulmonary disease) Qualifiers: COPD type: unspecified COPD Qualified Code(s): J44.9 - Chronic obstructive pulmonary disease, unspecified Disposition: Admitted As Inpatient Condition on Discharge: Good - Critical Care Critical Care Time: No Attestation: On 10/12/21, the high probability of a clinically significant, sudden or life threatening deterioration of the following system(s) required my full and direct attention, intervention and personal management. The time I documented below is in addition to time spent performing reported procedures but includes the following listed in this critical care notation. Medical Decision Making - Medical Records Medical records reviewed: Yes: I reviewed the patient's medical records. - Jared Inquiry Pt receiving controlled substance: No Vital Signs: 10/12/21 20:01 Temperature 98.5 F Temperature Source Oral Pulse Rate [Left] 55 L Respiratory Rate 14 Blood Pressure [Right Arm] 110/62 Blood Pressure Mean [Right Arm] 78 02 Sat by Pulse Oximetry 94 L Oxygen Delivery Method Room Air - Lab Data Lab results reviewed: Yes: I reviewed the patient's lab results. Lab Results 10/12/21 20:04: POC Glucose 127 H 10/12/21 20:17: SARS-CoV-2 (PCR) Not detected, Influenza A Untype (PCR) Not detected, Influenza Type B (PCR) Not detected 10/12/21 20:19: Urine Color [place], Urine Appearance Clear, Urine pH 5.5, Ur Specific [place] >= 1.030, Urine Protein Trace, Urine Glucose (UA) Negative, Urine Ketones Negative, Urine Blood Negative, Urine Nitrate Positive, Urine Bilirubin 1+ A, Urine Urobilinogen 2.0, Ur Leukocyte Esterase Negative, Ur Squamous Epith Cells 10-20, Amorphous Sediment 2+, Urine Mucus 2+ 10/12/21 20:19: WBC 8.2, RBC 4.28, Hgb 13.5, Hct 40.1, MCV 93.7, MCH 31.6 H, MCHC 33.8, RDW 15.9, Plt Count 116 L, MPV 9.9, Neut % (Auto) 81.7 H, Lymph % (Auto) 10.1, [place] % (Auto) 7.4, Eos % (Auto) 0.6, Baso % (Auto) 0.2, Neut # (Auto) 6.7, Lymph # (Auto) 0.8, [place] # (Auto) 0.6, Eos # (Auto) 0.1, Baso # (Auto) 0.0, ESR 16 10/12/21 20:19: Sodium 127 L, Potassium 3.5, Chloride 95 L, Carbon Dioxide 26, Anion Gap 9.5, BUN 28 H, Creatinine 1.20 H, Estimated Creat Clear 42, Estimated GFR 44 L, Est GFR ( Amer) 53 L, Glucose 142 H, Calcium 9.5, Total Bilirubin 4.0 H, Direct Bilirubin 1.3 H, Conjugated Bilirubin 0.4 H, Indirect Bilirubin 2.7 H, Unconjugated Bilirubin 2.7 H, AST 35, ALT 32, Alkaline Phosphatase 98, Troponin I < 0.01, C-Reactive Protein 51.1 H, NT-Pro-B Natriuret Pep 2520 H, Total Protein 6.1 L, Albumin 2.7 L 10/12/21 20:19: Lactate 4.7 H 10/12/21 20:19: Procalcitonin 0.145 10/12/21 20:37: Ammonia 10 Result diagrams: 10/12/21 20:19 10/12/21 20:19 Orders (Tests/Meds): ED MEDICATIONS Generic Name Dose Route Start Last Admin Trade Name Freq PRN Reason Stop Dose Admin Sodium Chloride 1,000 mls @ 999 mls/hr 10/12/21 20:45 10/12/21 20:38 Sod Chlor 0.9% 1000ml Bag IV 10/12/21 21:45 999 mls/hr .Q1H1M SARA Administration Levofloxacin/Dextrose 500 mg in 100 mls @ 100 mls/hr 10/12/21 22:30 10/12/21 22:38 Levaquin 500mg/100ml Premix IV 10/26/21 22:29 100 mls/hr Q24H SARA Administration ORDERS Category Date Time Status Troponin I Q3H Lab 10/12/21 23:30 Ordered Troponin I Q3H Lab 10/13/21 02:30 Ordered Blood Culture Stat Micro 10/12/21 20:21 Received - Radiology Data #1 Image(s): Chest Image Reviewed: Yes I have reviewed radiologist's interpretation Preliminary Findings: Abnormal - CT Data CT Scan: Head Time Received: 22:[address] Reviewed: Yes: I have viewed the radiologist's interpretation Preliminary Findings: Abnormal - ECG Data Tracing #1 Arrhythmias present: wandering atrial pacemaker Ischemic changes: non-specific ST-T wave changes - Physician Consults Physician Consulted: giovanni Reason -: Admission Medical Decision
[2021-10-12 21:00] LABS: NT Pro Brain Natriuretic Pep. 2520 pg/mL (0-125)
[2021-10-12 21:06] LABS: Procalcitonin 0.145 ng/mL (0.0-2.0)
[2021-10-12 21:07] LABS: Erythrocyte Sedimentation Rate 16 mm/hr (0-30); Troponin I < 0.01 ng/ml (0.00-0.034)
[2021-10-12 22:42] VITALS: BMI 24.8
[2021-10-12 23:10] LABS: Reflex Lactic Add Lactic Reflex
[2021-10-12 23:43] VITALS: BP 101/57; PULSE 102; RESP 20; TEMP 37; O2SAT 97
[2021-10-12 23:53] LABS: Lactic Acid Follow Up (RFLX 1) 2.8 mmol/L (0.7-2.1)
[2021-10-12 23:57] VITALS: BP 101/57; PULSE 98; RESP 20; TEMP 37.3; O2SAT 96
[2021-10-13] VITALS (13 sets, daily range): BP systolic 96–116; BP diastolic 50–57; PULSE 64–118; RESP 16–18; TEMP 36.6–37.1; O2SAT 92–99; BMI 24.8
--- NOTE | 2021-10-13 | PC.NURSE ---
PT ARRIVED TO FLOOR VIA W/C FROM ED W/STAFF @ 0000
[2021-10-13 00:06] LABS: Troponin I < 0.01 ng/ml (0.00-0.034)
[2021-10-13 01:39] LABS: Reflex Lactic (2 hrs) Add Lactic Reflex
[2021-10-13 02:24] LABS: Lactic Acid Follow up (RFLX 2) 1.9 mmol/L (0.7-2.1)
[2021-10-13 02:39] LABS: Troponin I < 0.01 ng/ml (0.00-0.034)
--- NOTE | 2021-10-13 07:15 | P.CONPHA_ITS ---
[facility] Pharmacy VTE Monitoring - Patient Demographics Admission date: 10/12/21 Report Date: 10/13/21 Time: 07:15 Allergies/Adverse Reactions: Patient Allergies codeine [CODEINE] Allergy (Intermediate, Verified 07/30/21 16:31) I-RASH Penicillins [PENICILLINS] Allergy (Intermediate, Verified 07/30/21 16:31) I-RASH Sulfa (Sulfonamide Antibiotics) [SULFA (SULFONAMIDE ANTIBIOTICS)] Allergy (Mild, Verified 07/30/21 16:31) NA-NAUSEA/VOMITING Height: 1.63 m Weight: 65.998 kg Patient Problems: Current Active Problems COPD (chronic obstructive pulmonary disease) (Chronic) Delirium due to general medical condition (Acute) - VTE Risk Labs: VTE Related Lab Results Hgb 13.5 g/dL (12.2-16.2) 10/12/21 20:19 Hct 40.1 % (37.0-47.0) 10/12/21 20:19 Plt Count 116 K/mm3 (142-424) L 10/12/21 20:19 BUN 28 mg/dl (7-17) H 10/12/21 20:19 Creatinine 1.20 mg/dl (0.52-1.04) H 10/12/21 20:19 Estimated Creat Clear 42 mL/min (50-200) 10/12/21 20:19 VTE Risk Level: Moderate Risk - Prophylaxis VTE Prophylaxis Ordered?: Yes Types of VTE Prophylaxis: TEDS Knee High Location of Applied Device: Bilateral Lower Extremeties
[2021-10-13 07:32] LABS: Basophils % 0.5 % (0.1-2.0); Eosinophils % 1.1 % (0.1-12.0); Hematocrit 31.2 % (37.0-47.0); Lymphocytes # 0.9 K/mm3 (0.7-4.5); Lymphocytes % 23.5 % (10-50); Mean Corpuscular HGB Conc 34.4 g/dL (31.8-35.4); Mean Corpuscular Hemoglobin 31.7 pg (27.0-31.2); Mean Corpuscular Volume 92.1 fl (81-99); Mean Platelet Volume 11.8 fl (7.4-10.4); Monocytes # 0.4 K/mm3 (0.1-1.0); Neutrophils # 2.5 K/mm3 (1.8-7.8); Platelet Count 79 K/mm3 (142-424); Red Blood Count 3.39 M/mm3 (4.20-5.40); White Blood Count 3.9 K/mm3 (4.8-10.8)
[2021-10-13 07:36] LABS: Chloride 97 mmol/L (98-107); Sodium 125 mmol/L (136-145)
[2021-10-13 07:39] LABS: Carbon Dioxide 29 mmol/L (22.0-30.0)
[2021-10-13 07:40] LABS: Blood Urea Nitrogen 26 mg/dl (7-17); Calcium 8.2 mg/dl (8.4-10.2); Creatinine Clearance Estimated 44 mL/min (50-200); Estimated Glomerular Filt Rate 44 ml/min (>60); GFR (African American) 53 ML/MIN (>60); Glucose 70 mg/dl (74-100); Magnesium 1.2 mg/dl (1.6-2.3)
--- NOTE | 2021-10-13 08:00 | CA_ITS ---
APPROVED REPORT EXAM: Limited 2D Echocardiogram Material Scheduler: FACUNDO Mendoza, RVS Ht: 5 ft 4 in Wt: 140lbs BSA: 1.68 BP: 000/00 mmHg Indications: Extremely limited exam dur to lack of patient acoustic windows. CHF, COPD, HTN, Smoker 2D Dimensions LVDs 2.18 cm Aortic Root 2.14 cm Left Atrium 3.28 cm LVOT 1.67 cm (M/F) 1.5-2.5 Conclusion 1. Technically poor and difficult study endocardial surfaces and valvular structures are not visualized. 2. Probably preserved left ventricular systolic function. 3. No significant pericardial effusion noted. Electronically signed by : Tony Stone MD 10/13/2021 09:31:40
--- NOTE | 2021-10-13 08:52 | HMH.HP ---
*Admission Date: 10/12/21 <Cayla Bragg 10/13/21 08:56> *Chief complaint: Left hip pain and unable to walk. <MahsaAcyla 10/13/21 08:56> *History of present illness: Ms. Christianson is a 71-year-old female patient with a history of hypertension, GERD, anxiety, degenerative disc disease, asthma, COPD, upper GI bleed in 2013, microvascular ischemic brain disease per MRI in 2014, type tobacco abuse, esophageal varices, hypertension, and cirrhosis, Trejo who was brought to [facility] emergency room for evaluation. Patient states that her left hip hurt and they evaluated her brain. With evaluation in the emergency roomCT of the head showed chronic changes in the brain but no acute intracranial . Chest x-ray showed interstitial opacities bilaterally concerning for pneumonia. Noted was an elevated bilirubin at four. Lactate was also elevated. Blood chemistry showed low sodium at 127 and potassium of 3.7 with repeat this morning sodium is 125 and potassium is four. BUN was 20 with a creatinine of 1.2 and this morning BUN is 26 with a creatinine of 1.2. Lactate has decreased to 1.9. Troponin I's are normal. This a.m. with exam patient denies chest pain and shortness of air. Her only complaint is her left hip discomfort. She is not hungry and did not eat breakfast. She is a poor historian and has difficulty in remembering why she came to the hospital and what happened to her yesterday. According to family she is refusing to take her medicine and needs help with all her activities. Patient states she is up on a motorized wheelchair. <MahsaCayla 10/13/21 09:22> [facility] History Medical History: Reports:: Anxiety, Asthma, Chronic Obstructive Pulmonary Disease (COPD), Depression, Gastroesophageal Reflux Disease(GERD), Hypertension Denies:: Cancer, Diabetes Mellitus Type 1, Diabetes Mellitus Type 2, Internal Pacemaker, MRSA, Seizures <Cayla Bragg 10/13/21 08:56> *Have you ever received a pneumonia vaccine?: No <Cayla Bragg 10/13/21 08:56> *Have you received a flu vaccine this season?: No <Cayla Bragg 10/13/21 08:56> Other Medical History: Reports: Arthritis, Cataracts, Liver Disease (Trejo and esophageal varices) <BraggCayla 10/13/21 09:22> Laterality Cases: Bilateral: Arthroscopy Shoulder, Carpal Tunnel Release, Total Hip Replacement <Bragg,Cayla 10/13/21 08:56> Other Surgeries: Yes: Tubal Ligation, Other (left hip). No: Pacemaker <BraggCayla 10/13/21 09:22> Amputation: No <BraggCayla 10/13/21 08:56> Fractures: No <BraggCayla 10/13/21 08:56> - *Social History Smoking Status: Current every day smoker <BraggCayla 10/13/21 08:56> Tobacco Type: cigarettes <BraggCayla 10/13/21 08:56> # Packs/Day (cigarettes): 1 <BraggCayla 10/13/21 08:56> Alcohol Intake: never <BraggCayla 10/13/21 08:56> Substance Use Type: denies use <BraggCayla 10/13/21 08:56> *Occupational Status:: retired <BraggCayla 10/13/21 08:56> Housing: house <BraggCayla 10/13/21 08:56> Household Members: none <BraggCayla 10/13/21 08:56> *Travel in the last 8 weeks: None <BraggCayla 10/13/21 08:56> - Psychiatric History Pschychiatric History:: Reports:: Anxiety, Depression <Cayla Bragg 10/13/21 08:56> Family Hx:: Diabetes, Heart Attack <BraggCayla lawler 10/13/21 08:56> Review of Systems - Constitutional Reports fatigue, Denies fever(s) <Cayla Bragg 10/13/21 09:22> - Eyes Denies change in vision <Cayla Bragg 10/13/21 09:22> - ENT Denies ear pain, Denies headache(s), Denies sore throat <Cayla Bragg 10/13/21 09:22> - *Cardiovascular Denies chest pain, Denies shortness of breath, Denies generalized swelling, Denies irregular heart rhythm <Cayla Bragg 10/13/21 09:22> - *Respiratory Denies chest congestion, Denies cough, Denies shortness of breath <Cayla Bragg 10/13/21 09:22> - *Gastrointestinal Denies abdominal pain, Denies change in mónica
--- NOTE | 2021-10-13 09:02 | XR_ITS ---
FINAL REPORT CLINICAL HISTORY: Left hip pain: Unable to walk. FINDINGS: LEFT HIP: Three views of the left hip including AP pelvis were obtained. Again noted are postoperative changes in the left proximal femur with 3 screws through the left femoral head and neck. There is an impacted fracture through the left femoral neck which is stable. There is no definite acute fracture. There are [id number] degenerative changes in both hips. The visualized bony structures are well aligned. There are vascular calcifications. There are postoperative changes in the lower pelvis. IMPRESSION: Stable fracture through the left femoral neck. No definite acute fracture. Reviewed, Interpreted and Dictated by Mark Turner III, MD Transcribed by Laura Phelps Authenticated by Mark Turner III, MD on 10/13/2021 11:04:55 AM [facility]
--- NOTE | 2021-10-13 09:27 | HMH.PHAINT ---
home medication list verified using list from outpatient pharmacy and [facility] list
[2021-10-13 10:15] LABS: Hemoglobin 10.8 g/dL (12.2-16.2)
--- NOTE | 2021-10-13 11:51 | HMH.CNCARD ---
History of Present Illness Consult date: 10/13/21 Requesting physician: Presley Peña Consult reason: congestive heart failure Chief complaint: hip pain History of present illness: This is a 71-year-old female who presented to the emergency department with complaints of left hip pain/discomfort. She is a really poor historian and is unable to tell me how long she has been having the hip pain and she does not really know how or why she came to the hospital. She denies any chest pain or pressure. She denies any shortness of breath. She does complain of lower extremity edema which she states started after an orthopedic surgery in the summer. From review of her records her family brought her into the emergency department because she was refusing to take her medications and needed help with her daily activities. She has ruled out for an MN with 2 - troponins. Her BNP was emergency department at 2520. Limited echocardiogram shows she likely has a preserved ejection fraction. She denies any fever, chills, nausea, vomiting, diarrhea, PND or orthopnea. [facility] History I have reviewed the patient's past medical history: Yes Medical History: Reports:: Anxiety, Asthma, Chronic Obstructive Pulmonary Disease (COPD), Depression, Gastroesophageal Reflux Disease(GERD), Hypertension Denies:: Cancer, Diabetes Mellitus Type 1, Diabetes Mellitus Type 2, Internal Pacemaker, MRSA, Seizures *Have you ever received a pneumonia vaccine?: No *Have you received a flu vaccine this season?: No Other Medical History: Reports: Arthritis, Cataracts, Liver Disease (Trejo and esophageal varices) Laterality Cases: Bilateral: Arthroscopy Shoulder, Carpal Tunnel Release, Total Hip Replacement Other Surgeries: Yes: Tubal Ligation, Other (left hip). No: Pacemaker Amputation: No Fractures: No - *Social History Smoking Status: Current every day smoker Tobacco Type: cigarettes # Packs/Day (cigarettes): 1 Alcohol Intake: never Substance Use Type: denies use *Occupational Status:: retired Housing: house Household Members: none *Travel in the last 8 weeks: None - Psychiatric History Pschychiatric History:: Reports:: Anxiety, Depression Family Hx:: Diabetes, Heart Attack Meds Home Medications Medication Instructions Recorded Confirmed Type Citalopram Hydrobromide 40 mg PO DAILY 10/12/21 10/12/21 History [Citalopram 40mg Tablet] Esomeprazole Magnesium 40 mg PO DAILY 10/12/21 10/12/21 History Furosemide [Furosemide 40MG tAB*] 40 mg PO DAILY 10/12/21 10/13/21 History Oxybutynin Chloride [Oxybutynin 10 mg PO DAILY 10/12/21 10/12/21 History Chloride ER] Spironolactone 100 mg PO DAILY 10/12/21 10/12/21 History Albuterol Sulfate [Albuterol 2 puffs INHALATION Q4H PRN 10/13/21 10/13/21 History Sulfate Hfa] Docusate Sodium 100 mg PO BID 10/13/21 10/13/21 History Trazodone HCl 50 mg PO HS 10/13/21 10/13/21 History Allergies Allergy/AdvReac Type Severity Reaction Status Date / Time codeine [CODEINE] Allergy Intermediate I-RASH Verified 07/30/21 16:31 Penicillins [PENICILLINS] Allergy Intermediate I-RASH Verified 07/30/21 16:31 Sulfa (Sulfonamide Allergy Mild NA-NAUSEA/V Verified 07/30/21 16:31 Antibiotics) OMITING [SULFA (SULFONAMIDE ANTIBIOTICS)] Exam Vital signs and Labs for Last 24 Hours: Temp Pulse Resp BP Pulse Ox 98.2 F 112 H 16 107/50 L 94 L 10/13/21 07:49 10/13/21 07:49 10/13/21 07:49 10/13/21 07:49 10/13/21 07:49 Laboratory Results - last 24 hr 10/12/21 20:04: POC Glucose 127 H 10/12/21 20:17: SARS-CoV-2 (PCR) Not detected, Influenza A Untype (PCR) Not detected, Influenza Type B (PCR) Not detected 10/12/21 20:19: Urine Color [place], Urine Appearance Clear, Urine pH 5.5, Ur Specific [place] >= 1.030, Urine Protein Trace, Urine Glucose (UA) Negative, Urine Ketones Negative, Urine Blood Negative, Urine Nitrate Positive, Urine Bilirubin 1+ A, Urine Urobilinogen 2.0, Ur Leukocyte Esterase Negative, Ur Squamous Epith Cells 1
--- NOTE | 2021-10-13 13:59 | SW/DCPLANNER ---
Addendum entered by [facility] 10/17/21 11:05: Family will transport this patient today. Addendum entered by [facility] 10/17/21 09:59: This patient has been accepted to [place] and may possibly discharge later today. This patient will not require a COVID swab if discharging today. Addendum entered by [facility] 10/16/21 15:16: *Lucie leal/ [facility] Parr is reviewing this case at this time. Addendum entered by [facility] 10/16/21 15:09: Sohan did call with questions regarding this patient and then stated that patient has been approved through 10/20/21 w/ reference # [id number]. I did call and updated Lucie of reference number. Lucie stated that if patient discharges tomorrow she will NOT require an additional COVID swab prior to discharge. I will call and update patients family and I will update MD in the AM due to being out of the office. Addendum entered by [facility] 10/16/21 10:03: CORRECTION: patient will NOT require first dose due to already receiving IV Levaquin. I will call and update patients family with this plan. Addendum entered by [facility] 10/16/21 09:26: The plan for this patient is to receive a PICC line today and will need 11 more days of IV Levaquin per Dr Peña. Updated patient information has been faxed to Pepe Parr and I will follow up. Patient will be ready for discharge later today if PICC is placed and first dose. Addendum entered by [facility] 10/15/21 07:34: Jennifer Parr has stated that she will need to wait for blood culture to know antibiotic needed prior to making decision regarding this patient. Addendum entered by [facility] 10/14/21 12:58: Jennifer has stated that she will be at [facility] today to do an onsite visit with this patient. Addendum entered by [facility] 10/14/21 11:20: Jennifer Parr is currently reviewing patient information and contacting patients son (Kike). Original Note: I spoke with this patient this afternoon regarding discharge plans. Patient stated that she resides at home alone and was having difficulty with ambulation prior to admission. I did inform patient that PT/OT has been ordered to evaluate this patient. I did explain different options for discharge plans based on PT/OT evaluation: home with family, home with home health vs placement. Patient stated that she would be agreeable to placement if necessary at discharge. Patient prefers to stay in [place] if placement is needed: [facility] is the ONLY facility in [place] that is in network with patients insurance. I also spoke with patient son (Josemanuel) whom is agreeable to placement if recommended. I will follow up with patient/family once PT/OT evaluation is completed. Yen leal/ Pepe Parr stated that there are beds available at this time but has requested that I wait to fax referral once PT/OT evaluations are completed.
--- NOTE | 2021-10-13 15:19 | PC.NURSE ---
1515 detailed report given to krysten cassidy rn
[2021-10-13 16:06] LABS: ABG PCO2 29.7 mmhg (35.0-45.0); ABG PH 7.51 mmol/L (7.35-7.45); ABG PO2 67.1 mmhg (80-100); ABG TCO2 23.9 mmhg (23-27)
[2021-10-13 16:07] LABS: ABG Base Excess -0.1 mmol/L (-2.4-2.3); ABG Oxygen Saturation 94 % (90-100); Allen's Test ACCEPTABLE; Oxygen ROOM AIR %; Source R RADIAL
--- NOTE | 2021-10-13 17:40 | PC.NURSE ---
15:30 - Late Entry: Pt. and belongings arrived to room 280 via bed, accompanied by [facility] Staff x2. Call light within reach, Bed alarm on. Pt. denies needs, will continue to monitor.
--- NOTE | 2021-10-13 20:14 | ECG_ITS ---
APPROVED REPORT Exam: Resting ECG HR:102 bpm ECG Measurements Heart Rate 102 AXES TX 152 P 54 QRSd 101 QRS -9 QT 373 T 47 QTc 432 Conclusion SINUS TACHYCARDIA WITH OCCASIONAL SUPRAVENTRICULAR Late r wave progression, unchanged from prior UNCONFIRMED REPORT Electronically signed by : Price Pedraza MD 10/17/2021 16:16:19
--- NOTE | 2021-10-13 21:17 | PC.NURSE ---
WITH GIVING PT HER NIGHT MEDICINE ONE PILL MAG.OXIDE PT GAGGED AND SPIT PILL BACK UP,ASKED PT IF SHE HAS BEEN HAVING TROUBLE SWALLOWING PILLS AND SHE SAID NO.CUT THE PILL INTO AND PT STILL GAGGED AND HANDED PILL BACK TO ME,PT REFUSED,SHE DID NOT HAVE TROUBLE SWALLOWING WATER
--- NOTE | 2021-10-13 22:55 | PC.NURSE ---
EARLIER FANNY ,DIRECTOR OF ANNUAL GIVING FROM 2ND FLOOR CALLED AND SAID PT WAS HAVING SOME PVC ON MONITOR,CALLED KENNETH RAMÍREZ RN AND SHE SAID TO HAVE THE CHARGE NURSE LOOK AT THE STRIP,SPOKE WITH SAMANTHA MOLINA AND SHE SAID SHE SEEN SOME PAC AND HER HEART RATE WAS 100-120,SHE ASKED IF SHE WAS UP AND ABOUT AND I TOLD HER WE HAD JUST TURNED HER AND CHANGED HER BRIEF AND SHE SAID THAT WAS PROBALY WHAT IT WAS BECAUSE THERE WAS SOME ARTIFACT TOO.PT HAD C/O HER BELLY HURTING,OFFERED SOME TYLENOL AND SHE SAID YES SHE WANTED SOME,SHE WAS UNABLE TO RATE HER PAIN,AND AFTER TAKING THE TYLENOL AND I ASKED HER ABOUT HER BELLY PAIN SHE SAID HER BELLY WAS NOT HURTING.ASKED HER AGAIN IF SHE KNEW WHERE SHE WAS AND SHE SAID AT [facility].WILL CONTINUE TO MONITOR.
[2021-10-14] VITALS (8 sets, daily range): BP systolic 103–120; BP diastolic 53–68; PULSE 74–115; RESP 16–18; TEMP 36.7–37.1; O2SAT 93–96; BMI 25.0
--- NOTE | 2021-10-14 04:32 | PC.NURSE ---
PT A LITTLE CONFUSED THIS MORNING,GAVE ME HER NAME, MONTH AND KNEW WHERE SHE WAS,BUT ASKED WHO THE GUN LADY WAS.LUNGS WITH SOME EXSPIRATORY WHEEZING NOTED ,SAT LEVEL ON RA 93 %, POSITIVE BOWEL SOUNDS,2+EDEMA IN BLE,PT HAS HAD A COUPLE WET BRIEFS.AFEBRILE
--- NOTE | 2021-10-14 05:00 | PC.NURSE ---
NOTIFIED ABOUT POSITIVE BLOOD CULTURES AND PT EXSPIRATORY WHEEZING AND HE SAID SHE IS ALREADY ON AN ANTIBIOTIC-LEVAQUIN AND HAS BREATHING TX,NO NEW ORDERS GIVEN
--- NOTE | 2021-10-14 06:30 | PC.NURSE ---
RESP.HERE TO DO WILBER FERREIRA
[2021-10-14 07:18] LABS: Basophils % 0.5 % (0.1-2.0); Eosinophils % 0.3 % (0.1-12.0); Hematocrit 32.1 % (37.0-47.0); Hemoglobin 10.7 g/dL (12.2-16.2); Lymphocytes # 1.1 K/mm3 (0.7-4.5); Lymphocytes % 32.1 % (10-50); Mean Corpuscular HGB Conc 33.3 g/dL (31.8-35.4); Mean Corpuscular Hemoglobin 31.1 pg (27.0-31.2); Mean Corpuscular Volume 93.7 fl (81-99); Mean Platelet Volume 11.8 fl (7.4-10.4); Monocytes # 0.4 K/mm3 (0.1-1.0); Monocytes % 11.8 % (1.7-9.3); Neutrophils # 1.9 K/mm3 (1.8-7.8); Neutrophils % 55.3 % (37.0-80.0); Platelet Count 75 K/mm3 (142-424); Red Blood Count 3.43 M/mm3 (4.20-5.40); Red Cell Distribution Width 16.4 % (11.5-17.5); White Blood Count 3.4 K/mm3 (4.8-10.8)
[2021-10-14 07:35] LABS: Alanine Aminotransferase 20 U/L (12-78); Albumin Level 1.9 g/dl (3.5-5.0); Albumin/Globulin Ratio 0.6 (1.1-1.8); Alkaline Phosphatase 72 U/L (38-126); Anion Gap 6.5 mEq/L (5-15); Aspartate Amino Transferase 27 U/L (14-36); Bilirubin,Total 3.4 mg/dl (0.2-1.3); Blood Urea Nitrogen 25 mg/dl (7-17); Calcium 8.5 mg/dl (8.4-10.2); Carbon Dioxide 26 mmol/L (22.0-30.0); Chloride 100 mmol/L (98-107); Creatinine Clearance Estimated 44 mL/min (50-200); Estimated Glomerular Filt Rate 44 ml/min (>60); GFR (African American) 53 ML/MIN (>60); Glucose 84 mg/dl (74-100); Potassium 3.5 mmoL/L (3.5-5.1); Sodium 129 mmol/L (136-145); Total Protein,Serum 4.9 g/dl (6.3-8.2)
--- NOTE | 2021-10-14 08:54 | HMH.ACPN2 ---
<Cayla Bragg - Last Filed: 10/14/21 08:54> Internal Medicine - PN: Subj *Date: 10/14/21 *Time: 08:54 Interval history: Patient states she feels better this a.m. She thinks she slept. She is eating more today. She denies chest pain and shortness of breath. She states her left hip continues to hurt. She does not recall if she has been out of bed. Laboratory data shows a hemoglobin of 10.7 hematocrit of 32.1 with a white blood cell count of 3400. Sodium is slightly better at 129. BUN is 25 and creatinine is 1.2 bilirubin has decreased to 3.4 from 4. Blood culture positive for gram-negative doug for Enterobacter Klebsiella pneumonia a possibility is on PCR; final ID pending. Exam Vital signs and Labs for Last 24 Hours: Temp Pulse Resp BP Pulse Ox 98.0 F 103 H 16 110/53 L 93 L 10/14/21 08:00 10/14/21 08:00 10/14/21 08:00 10/14/21 08:00 10/14/21 08:00 Laboratory Results - last 24 hr 10/12/21 23:00: Specimen Source R radial, O2 % Room air, ABG pH 7.51 H, ABG pCO2 29.7 L, ABG pO2 67.1 L, ABG HCO3 23.0, ABG Total CO2 23.9, ABG O2 Saturation 94, ABG Base Excess -0.1, Ricco Test Acceptable 10/13/21 06:23: Hgb 10.8 L D 10/14/21 06:57: WBC 3.4 L, RBC 3.43 L, Hgb 10.7 L, Hct 32.1 L, MCV 93.7, MCH 31.1, MCHC 33.3, RDW 16.4, Plt Count 75 L, MPV 11.8 H, Neut % (Auto) 55.3, Lymph % (Auto) 32.1, [place] % (Auto) 11.8 H, Eos % (Auto) 0.3, Baso % (Auto) 0.5, Neut # (Auto) 1.9, Lymph # (Auto) 1.1, [place] # (Auto) 0.4, Eos # (Auto) 0.0, Baso # (Auto) 0.0 10/14/21 06:57: Sodium 129 L, Potassium 3.5, Chloride 100, Carbon Dioxide 26, Anion Gap 6.5, BUN 25 H, Creatinine 1.20 H, Estimated Creat Clear 44, Estimated GFR 44 L, Est GFR ( Amer) 53 L, Glucose 84, Calcium 8.5, Total Bilirubin 3.4 H, AST 27, ALT 20 D, Alkaline Phosphatase 72, Total Protein 4.9 L, Albumin 1.9 L D, Globulin 3.0, Albumin/Globulin Ratio 0.6 L I & O for Last 24 hours: Intake & Output 10/11/21 10/12/21 10/13/21 10/14/21 11:59 11:59 11:59 11:59 Intake Total 1220 / 1220 120 / 120 Balance 1220 / 1220 120 / 120 Weight 145 lb 8 oz 146 lb 8 oz Microbiology Reports for the Last 24 Hours: Microbiology 10/12/21 20:21 Blood Blood Culture - Preliminary 10/12/21 20:21 Urine,Catheterized Urine Culture - Preliminary NO GROWTH AFTER 24 HOURS - Constitutional no acute distress Comments: Sitting up in the bed eating cereal and seems to be enjoying. - *Routine Respiratory Exam Present: CTA bilaterally (Anteriorly and posteriorly) - *Routine Cardiovascular Exam Present: irregular rhythm (Monitor showing sinus rhythm with frequent PACs) - *Routine Abdominal Exam Present: soft, normoactive bowel sounds. Absent: tenderness, distended - *Routine Extremities Exam Present: edema. Absent: calf tenderness Comments: Bilateral leg edema greater on the right. Spots of ecchymosis and a few scabs noted. Erythema is less. - *Routine Neurological Exam Present: alert (Patient is oriented to name and place.) Assessment and Plan (1) Edema of both legs Status: Acute Category: Medical Code(s): R60.0 - Localized edema (2) Left hip pain Status: Acute Category: Medical Code(s): M25.552 - Pain in left hip (3) Delirium due to general medical condition Status: Acute Category: Medical Code(s): F05 - Delirium due to known physiological condition (4) COPD (chronic obstructive pulmonary disease) Status: Chronic Qualifiers: COPD type: unspecified COPD Qualified Code(s): J44.9 - Chronic obstructive pulmonary disease, unspecified Category: Medical Code(s): J44.9 - Chronic obstructive pulmonary disease, unspecified (5) GERD (gastroesophageal reflux disease) Status: Chronic Category: Medical Code(s): K21.9 - Gastro-esophageal reflux disease without esophagitis (6) Hyponatremia Status: Acute Category: Medical Code(s): E87.1 - Hypo-osmolality and hyponatremia (7) Renal insu
[2021-10-14 09:50] LABS: Thyroid Stimulating Hormone 5.22 uIU/mL (0.465-4.68)
--- NOTE | 2021-10-14 10:33 | HMH.PTEV ---
Physical Therapy Evaluation Rehab PT IP Evaluation Start: 10/13/21 13:41 Freq: ONCE Status: Active Protocol: Document 10/14/21 10:12 JOHNY (Rec: 10/14/21 10:32 JOHNY [id number]) Subjective/History History History Ms. Christianson is a 71-year-old female patient with a history of hypertension, GERD, anxiety , degenerative disc disease, asthma, COPD, upper GI bleed in 2013, microvascular ischemic brain disease per MRI in 2014, type tobacco abuse, esophageal varices, hypertension, and cirrhosis, Trejo who was brought to [facility] emergency room for evaluation. According to family she is refusing to take her medicine and needs help with all her activities. Patient states she is up on a motorized wheelchair. _COPIED FROM H&P Subjective Subjective Pt reports she is willing to participate but does not wish to sit in chair - pt has no reports of pain - S/P rx pt reports she feels like she needs to go somewhere to get stronger before going home Rehab PT IP Eval Objective Appearance Patient Behavior Cooperative,Fatigued Patient Orientation Place,Name,Birthday,Year Difficulty following instructions none Speech Pattern Clear,Appropriate,Soft-Spoken Ambulation Patient Able to Ambulate Yes Ambulation Observation Ambulation Distance (feet) 2 Ambulation Assistive Device None Ambulation Ability Moderate x 1 (50% assist) Balance Ability to Arise Unable Sitting Balance Steady, safe Standing Balance Unsteady Dynamic Sitting Balance Ability Fair Dynamic Standing Balance Ability Poor Transfers Bed Transfer Ability Contact Guard/Hand Hold Sit to Stand Bed Transfer Ability Minimal x 1 (25% assist) Rehab PT IP prob,goals,plan Problems Date of Evaluation: 10/14/21 PT IP Problems Bed Mobility,Transfers,Gait, Balance,Self care,Safety Rehab Potential Rehab Potential Poor Equipment Needs Assistive Devices Wheelchair Plan PT Intervention Plan
--- NOTE | 2021-10-14 11:19 | HMH.PNCARD ---
Subjective Date: 10/14/21 Time: 11:25 Principal diagnosis: chf Interval history: This is a 71-year-old white female who presented to the emergency department complaints of hip pain/discomfort. She is a very poor historian. This morning she denies any chest pain or pressure. She denies any shortness of breath. She does complain of lower extremity edema but she is unsure if it is any better after having Lasix yesterday. She appears to be in no distress. She states overall she is feeling much better. She denies any fever, chills, nausea, vomiting, diarrhea, PND or orthopnea. Exam Vital signs and Labs for Last 24 Hours: Temp Pulse Resp BP Pulse Ox 98.0 F 103 H 16 110/53 L 93 L 10/14/21 08:00 10/14/21 08:00 10/14/21 08:00 10/14/21 08:00 10/14/21 08:00 Laboratory Results - last 24 hr 10/12/21 23:00: Specimen Source R radial, O2 % Room air, ABG pH 7.51 H, ABG pCO2 29.7 L, ABG pO2 67.1 L, ABG HCO3 23.0, ABG Total CO2 23.9, ABG O2 Saturation 94, ABG Base Excess -0.1, Ricco Test Acceptable 10/14/21 06:57: WBC 3.4 L, RBC 3.43 L, Hgb 10.7 L, Hct 32.1 L, MCV 93.7, MCH 31.1, MCHC 33.3, RDW 16.4, Plt Count 75 L, MPV 11.8 H, Neut % (Auto) 55.3, Lymph % (Auto) 32.1, [place] % (Auto) 11.8 H, Eos % (Auto) 0.3, Baso % (Auto) 0.5, Neut # (Auto) 1.9, Lymph # (Auto) 1.1, [place] # (Auto) 0.4, Eos # (Auto) 0.0, Baso # (Auto) 0.0 10/14/21 06:57: Sodium 129 L, Potassium 3.5, Chloride 100, Carbon Dioxide 26, Anion Gap 6.5, BUN 25 H, Creatinine 1.20 H, Estimated Creat Clear 44, Estimated GFR 44 L, Est GFR ( Amer) 53 L, Glucose 84, Calcium 8.5, Total Bilirubin 3.4 H, AST 27, ALT 20 D, Alkaline Phosphatase 72, Total Protein 4.9 L, Albumin 1.9 L D, Globulin 3.0, Albumin/Globulin Ratio 0.6 L 10/14/21 06:57: TSH 5.22 H I & O for Last 24 hours: Intake & Output 10/11/21 10/12/21 10/13/21 10/14/21 23:59 23:59 23:59 23:59 Intake Total 1100 / 1100 240 / 240 Balance 1100 / 1100 240 / 240 Weight 145 lb 8 oz 145 lb 8 oz 146 lb 7.955 oz Microbiology Reports for the Last 24 Hours: Microbiology 10/12/21 20:21 Blood Blood Culture - Preliminary 10/12/21 20:21 Urine,Catheterized Urine Culture - Preliminary NO GROWTH AFTER 24 HOURS - Constitutional no acute distress, average body habitus - *Routine HEENT Exam Head: Present: normocephalic, atraumatic Eye: Present: EOMI, PERRL ENT: Present: mucous membranes moist - *Routine Neck Exam Present: supple, full ROM, normal carotid upstroke. Absent: JVD, carotid bruit, lymphadenopathy - *Routine Respiratory Exam Present: CTA bilaterally - *Routine Cardiovascular Exam Present: RRR, Normal S1, Normal S2. Absent: murmur - *Routine Abdominal Exam Present: soft, normoactive bowel sounds. Absent: tenderness, distended - *Routine Extremities Exam Present: edema (Bilateral lower extremity edema, improved), full ROM, pulses intact, normal capillary refill. Absent: cyanosis, clubbing - *Routine Skin Exam Present: intact, erythema (Bilateral lower extremity erythema), warm. Absent: rash - *Routine Neurological Exam Present: alert, oriented X3, CN II-XII intact. Absent: sensory deficit, motor deficit Progress Note: A&P (1) Diastolic congestive heart failure Status: Acute (2) Edema of both legs Status: Acute (3) Left hip pain Status: Acute (4) Delirium due to general medical condition Status: Acute (5) COPD (chronic obstructive pulmonary disease) Status: Chronic (6) GERD (gastroesophageal reflux disease) Status: Chronic (7) Hyponatremia Status: Acute (8) Renal insufficiency Status: Acute (9) Hypertension Status: Chronic (10) TOVAR (nonalcoholic steatohepatitis) Status: Chronic (11) Bacteremia Status: Acute (12) Bilateral lower leg cellulitis Status: Acute Assessment and Plan for All Diagnoses:: Plan: 1. This is a 71-year-old white female who presented to the hospital with hip pain.
--- NOTE | 2021-10-14 11:44 | HMH.OTEV ---
OT Inpatient Evaluation Rehab OT IP Evaluation Start: 10/13/21 13:43 Freq: ONCE Status: Complete Protocol: [facility]21 [facility] (Rec: 10/14/21 11:43 [facility] [id number]) Rehab OT IP Assessment Subjective History Pt oriented x 3 on arrival. Pt agreeable to engage in therapy evaluation. Pt was admitted via ED on 10/12/21 due to delirium, left hip pain, and unable to walk. The following informationw as copied from history and physical report per PCP: Ms. Christianson is a 71-year-old female patient with a history of hypertension, GERD, anxiety , degenerative disc disease, asthma, COPD, upper GI bleed in 2013, microvascular ischemic brain disease per MRI in 2014, type tobacco abuse, esophageal varices, hypertension, and cirrhosis, Trejo who was brought to [facility] emergency room for evaluation. Patient states that her left hip hurt and they evaluated her brain. With evaluation in the emergency roomCT of the head showed chronic changes in the brain but no acute intracranial . Chest x-ray showed interstitial opacities bilaterally concerning for pneumonia. Noted was an elevated bilirubin at four. Lactate was also elevated. Blood chemistry showed low sodium at 127 and potassium of 3.7 with repeat this morning sodium is 125 and potassium is four. BUN was 20 with a creatinine of 1.2 and this morning BUN is 26 with a creatinine of 1.2. Lactate has decreased to 1.9. Troponin I' s are normal. This a.m. with exam patient denies chest
--- NOTE | 2021-10-14 17:06 | PC.NURSE ---
PT HAS BEEN ALERT TO SELF AND BIRTHDAY ONLY T/O SHIFT. UNSURE OF WHERE SHE IS OR THE DATE. PT DOES NOT TALK MUCH. HAS HAD VERY POOR APPETITE. THIS NURSE HAS ENCOURAGED EATING AND FLUIDS. PT DENIES. PT HAS +2-3 PITTING EDEMA NOTED TO BLE. ELEVATED T/O SHIFT ON PILLOWS. PT IS ON STRICT I&O. HOOKED UP TO PURE WICK, TOLERATED WELL. NO C/O THUS FAR. VSS WILL CONTINUE TO MONITOR.
[2021-10-15] VITALS (8 sets, daily range): BP systolic 91–125; BP diastolic 46–71; PULSE 79–107; RESP 16–20; TEMP 36.5–36.8; O2SAT 93–97
--- NOTE | 2021-10-15 04:01 | PC.NURSE ---
No acute changes from previous assessment. See vital signs as charted. Pt has rested well this shift, will continue to monitor.
--- NOTE | 2021-10-15 06:54 | PC.NURSE ---
ALL CHARTING AND CARE BY TIMO, [employer] INST[employer]ER, DONE UNDER MY DIRECT SUPERVISION.
--- NOTE | 2021-10-15 07:04 | PC.NURSE ---
REPORT GIVEN TO DHARMESH SINGH
[2021-10-15 07:39] LABS: Anion Gap 5.5 mEq/L (5-15); Blood Urea Nitrogen 28 mg/dl (7-17); Calcium 9.1 mg/dl (8.4-10.2); Carbon Dioxide 27 mmol/L (22.0-30.0); Chloride 99 mmol/L (98-107); Creatinine Clearance Estimated 40 mL/min (50-200); Estimated Glomerular Filt Rate 40 ml/min (>60); GFR (African American) 49 ML/MIN (>60); Glucose 98 mg/dl (74-100); Potassium 3.5 mmoL/L (3.5-5.1); Sodium 128 mmol/L (136-145)
--- NOTE | 2021-10-15 08:03 | HMH.ACPN2 ---
<Audra Vang - Last Filed: 10/15/21 08:03> Internal Medicine - PN: Subj *Date: 10/15/21 *Time: 08:03 Interval history: Patient states she is feeling a little bit better this morning. She denies any pain and states she did sleep. She had only a small amount of breakfast. Exam Vital signs and Labs for Last 24 Hours: Temp Pulse Resp BP Pulse Ox 98.2 F 79 19 125/71 95 10/15/21 04:00 10/15/21 05:44 10/15/21 04:00 10/15/21 04:00 10/15/21 04:00 Laboratory Results - last 24 hr 10/14/21 06:57: TSH 5.22 H 10/15/21 06:45: Sodium 128 L, Potassium 3.5, Chloride 99, Carbon Dioxide 27, Anion Gap 5.5, BUN 28 H, Creatinine 1.30 H, Estimated Creat Clear 40, Estimated GFR 40 L, Est GFR ( Amer) 49 L, Glucose 98, Calcium 9.1 I & O for Last 24 hours: Intake & Output 10/12/21 10/13/21 10/14/21 10/15/21 11:59 11:59 11:59 11:59 Intake Total 1220 / 1220 120 / 120 240 / 240 Output Total 200 / 200 Balance 1220 / 1220 120 / 120 40 / 40 Weight 145 lb 8 oz 146 lb 7.955 oz Microbiology Reports for the Last 24 Hours: Microbiology 10/12/21 20:21 Urine,Catheterized Urine Culture - Final NO GROWTH AFTER 48 HOURS 10/12/21 20:21 Blood Blood Culture - Preliminary NO GROWTH AFTER 48 HOURS 10/12/21 20:21 Blood Blood Culture - Preliminary - Constitutional no acute distress - *Routine Respiratory Exam Present: rhonchi, wheezes - *Routine Cardiovascular Exam Present: RRR - *Routine Abdominal Exam Present: soft, normoactive bowel sounds. Absent: tenderness - *Routine Extremities Exam Present: edema (LLE). Absent: cyanosis, clubbing - *Routine Skin Exam Present: warm. Absent: rash - *Routine Neurological Exam Present: alert (Able answer questions but falls asleep quickly) Assessment and Plan (1) Diastolic congestive heart failure Status: Acute Category: Medical Code(s): I50.30 - Unspecified diastolic (congestive) heart failure (2) Edema of both legs Status: Acute Category: Medical Code(s): R60.0 - Localized edema (3) Left hip pain Status: Acute Category: Medical Code(s): M25.552 - Pain in left hip (4) Delirium due to general medical condition Status: Acute Category: Medical Code(s): F05 - Delirium due to known physiological condition (5) COPD (chronic obstructive pulmonary disease) Status: Chronic Qualifiers: COPD type: unspecified COPD Qualified Code(s): J44.9 - Chronic obstructive pulmonary disease, unspecified Category: Medical Code(s): J44.9 - Chronic obstructive pulmonary disease, unspecified (6) GERD (gastroesophageal reflux disease) Status: Chronic Category: Medical Code(s): K21.9 - Gastro-esophageal reflux disease without esophagitis (7) Hyponatremia Status: Acute Category: Medical Code(s): E87.1 - Hypo-osmolality and hyponatremia (8) Renal insufficiency Status: Acute Category: Medical Code(s): N28.9 - Disorder of kidney and ureter, unspecified (9) Hypertension Status: Chronic Category: Medical Code(s): I10 - Essential (primary) hypertension (10) TOVAR (nonalcoholic steatohepatitis) Status: Chronic Category: Medical Code(s): K75.81 - Nonalcoholic steatohepatitis (TOVAR) (11) Bacteremia Status: Acute Category: Medical Code(s): R78.81 - Bacteremia (12) Bilateral lower leg cellulitis Status: Acute Category: Medical Code(s): L03.116 - Cellulitis of left lower limb; L03.115 - Cellulitis of right lower limb - Assessment and plan all Dx Assessment and Plan for all problems:: Sodium is still low. Renal function has not improved. Urine and blood culture showed no growth at 48 hours. Will discuss further care with Dr. Peña. <Presley Pñea - Last Filed: 10/15/21 08:16> Internal Medicine - PN: Subj *Date: 10/15/21 *Time: 08:15 Exam Vital signs and Labs for Last 24 Hours: Temp Pulse Resp BP Pulse
--- NOTE | 2021-10-15 16:32 | PC.NURSE ---
Family member in room. Pt. and family member wish to setup password for information. Password setup as [id number] .
--- NOTE | 2021-10-15 16:52 | PC.NURSE ---
Routine reassessment completed. No acute changes note from previous assessment. Pt. alert and oriented to self, place and year. Pt. unable to recall month and day. Pt. reports she is here for her left hip hurting. HR at 95 with RRR.Lungs with Expiratory wheezes, and coarse crackles in Bilateral Upper lobes, Lower lobes noted to be diminished. BLE noted to have 2+ to 3+ pitting edema. Redness noted to BLE. Pt. denies pain. Purewick remains in place with brief with suction on, 100ml tessie colored urine noted. Pt. sat up in chair for approximately 3 hours this morning. Nursing staff helped pt. back to bed with x2 assist. Pt. unable to assist staff in walking to bed, Pt. was total dependency on staff for movement back to bed. Pt. resting in bed, denies needs. Call light and telephone within reach, will continue to monitor.
--- NOTE | 2021-10-15 20:05 | PC.NURSE ---
ASSESSMENT DONE AT THIS TIME AND NIGHT MEDICINE GIVEN WITH APPLE SAUCE,PT ATE ABOUT HALF CONTAINER OF APPLE SAUCE AND DRANK A LITTLE WATER,PT ACTED LIKE IT HURT TO SWALLOW,ASKED PT IF IT HURT TO SWALLOW AND SHE SAID YES,ASKED HER IF THE COLD FROM THE APPLE SAUCE HELPED AND SHE SAID YES,WILL CONTINUE TO ENCOURAGE FOOD AND WATER.PT HAS ABOUT 150ML IN CANNISTER FROM [facility]
--- NOTE | 2021-10-15 21:34 | PC.NURSE ---
Addendum entered by Divya Parada RN 10/15/21 21:38: PURWICK AND DEPEND CHECKED AND NO NEED FOR CHANGE Original Note: ALARM WENT OFF ON THE BED,UPON ENTERING ROOM PT WAS STILL LAYING ON HER LEFT SIDE,ASKED PT IF SHE TRIED TO GET UP AND SHE SAID NO,JUST MOVED.HAD PT TO TURN TO HER RIGHT SIDE DID IT INDEPENDENTLY USING BED RAILS PLACED PILLOW TO BACK AND ONE BETWEEN HER LEGS FOR COMFORT,OFFERED ANOTHER DRINK OF OJ AND PT REFUSED.WILL CONTINUE TO MONITOR
[2021-10-16] VITALS (8 sets, daily range): BP systolic 84–92; BP diastolic 44–56; PULSE 77–96; RESP 16–19; TEMP 36.4–36.7; O2SAT 92–99; BMI 24.7
--- NOTE | 2021-10-16 00:12 | PC.NURSE ---
UPON ENTERING ROOM,PT WAS EASILY AROUSED,V/S OBTAINED,LUNGS CLEAR AT THIS TIME.SAT LEVEL ON RA WAS 95%.PT TURNED ON HER OWN TO HER LEFT SIDE,PILLOW PLACED BETWEEN HER LEGS FOR COMFORT.STILL 2-3+ PITTING EDEMA IN BOTH LEGS,MORE 3+ ON LEFT ONE .PURWICK IN PLACED AND BRIEF IS DRY.MAYBE ANOTHER 20-30 ML URINE IN CANISTER,LUIS COLOR.WILL EMPTY CANISTER AT END OF SHIFT.PT DRANK ALMOST ALL OF HER OJ,WILL CONTINUE TO ENCOURAGE PT TO DRINK.
--- NOTE | 2021-10-16 04:08 | PC.NURSE ---
PT SLEEPING SOUNDLY AT THIS TIME,SHE HAS BEEN SLEEPING AT INTERVALS,GOING TO LET HER SLEEP AWHILE BEFORE GETTING HER V/S AND REASSESSING HER,PLANNING ON GIVING HER A BED BATH
--- NOTE | 2021-10-16 05:50 | PC.NURSE ---
PT SLEPT AT INTERVALS LAST NIGHT,THIS MORNING HER LUNGS WERE CLEAR WITH SAT.LEVEL AT 99% ON RA,STILL 2-3+ PITTING EDEMA IN BILATERAL LEGS,AFIBRILE.NORMAL BOWEL SOUNDS X4 QUADS,PT PASSING FLATUS,NO BOWEL MOVEMENT THIS SHIFT,ABOUT 180MLOF LUIS URINE NOTED IN SUCTION CANISTER,BUT 100ML OF IT WAS FROM DAY SHIFT,WILL EMPTY TO GET A MORE ACCURATE COUNT AT END OF SHIFT,PT HAS A PURWICK IN PLACE AND HER BRIEF IS DRY.PT WAS GIVEN A BED BATH THIS MORNING AND SAID SHE FEELS BETTER.
--- NOTE | 2021-10-16 06:05 | PC.NURSE ---
RESP.HERE TO DO PT WILBER [place]
[2021-10-16 06:52] LABS: Basophils % 0.5 % (0.1-2.0); Eosinophils % 1.4 % (0.1-12.0); Hematocrit 31.4 % (37.0-47.0); Lymphocytes # 0.5 K/mm3 (0.7-4.5); Lymphocytes % 16.4 % (10-50); Mean Corpuscular HGB Conc 31.9 g/dL (31.8-35.4); Mean Corpuscular Hemoglobin 31.4 pg (27.0-31.2); Mean Corpuscular Volume 98.6 fl (81-99); Mean Platelet Volume 11.6 fl (7.4-10.4); Monocytes # 0.4 K/mm3 (0.1-1.0); Monocytes % 11.6 % (1.7-9.3); Neutrophils # 2.2 K/mm3 (1.8-7.8); Neutrophils % 70.2 % (37.0-80.0); Platelet Count 74 K/mm3 (142-424); Red Blood Count 3.18 M/mm3 (4.20-5.40); Red Cell Distribution Width 16.8 % (11.5-17.5); White Blood Count 3.2 K/mm3 (4.8-10.8)
--- NOTE | 2021-10-16 07:00 | PC.NURSE ---
BREAKFAST TRAY SET BESIDE PT,PT REFUSING TO EAT AT THIS TIME.COVERS OVER HER HEAD
[2021-10-16 07:01] LABS: Alanine Aminotransferase 19 U/L (12-78); Albumin Level 1.9 g/dl (3.5-5.0); Albumin/Globulin Ratio 0.7 (1.1-1.8); Alkaline Phosphatase 67 U/L (38-126); Aspartate Amino Transferase 27 U/L (14-36); Bilirubin,Total 2.2 mg/dl (0.2-1.3); Blood Urea Nitrogen 31 mg/dl (7-17); Calcium 8.8 mg/dl (8.4-10.2); Carbon Dioxide 29 mmol/L (22.0-30.0); Chloride 99 mmol/L (98-107); Creatinine Clearance Estimated 37 mL/min (50-200); Estimated Glomerular Filt Rate 37 ml/min (>60); GFR (African American) 45 ML/MIN (>60); Globulin 2.7 g/dL (1.3-3.2); Glucose 85 mg/dl (74-100); Sodium 128 mmol/L (136-145); Total Protein,Serum 4.6 g/dl (6.3-8.2)
--- NOTE | 2021-10-16 08:12 | HMH.ACPN2 ---
<Audra Vang - Last Filed: 10/16/21 08:12> Internal Medicine - PN: Subj *Date: 10/16/21 *Time: 08:12 Interval history: According to patient's nurse, she has had minimal urinary output and minimal p.o. intake. She complained of abdominal pain last night but denies any pain this morning. She states she is tired. Exam Vital signs and Labs for Last 24 Hours: Temp Pulse Resp BP Pulse Ox 98.1 F 86 19 84/44 L 99 10/16/21 04:45 10/16/21 04:45 10/16/21 04:45 10/16/21 04:45 10/16/21 04:45 Laboratory Results - last 24 hr 10/12/21 20:19: Urine Color [place], Urine Appearance Clear, Urine pH 5.5, Ur Specific [place] >= 1.030, Urine Protein Trace, Urine Glucose (UA) Negative, Urine Ketones Negative, Urine Blood Negative, Urine Nitrate Positive, Urine Bilirubin 1+ A, Urine Urobilinogen 2.0, Ur Leukocyte Esterase Negative, Ur Squamous Epith Cells 10-20, Amorphous Sediment 2+, Urine Mucus 2+ 10/16/21 06:25: WBC 3.2 L, RBC 3.18 L, Hgb 10.0 L, Hct 31.4 L, MCV 98.6, MCH 31.4 H, MCHC 31.9, RDW 16.8, Plt Count 74 L, MPV 11.6 H, Neut % (Auto) 70.2, Lymph % (Auto) 16.4, [place] % (Auto) 11.6 H, Eos % (Auto) 1.4, Baso % (Auto) 0.5, Neut # (Auto) 2.2, Lymph # (Auto) 0.5 L, [place] # (Auto) 0.4, Eos # (Auto) 0.0, Baso # (Auto) 0.0 10/16/21 06:25: Sodium 128 L, Potassium 4.0, Chloride 99, Carbon Dioxide 29, Anion Gap 4.0 L, BUN 31 H, Creatinine 1.40 H, Estimated Creat Clear 37, Estimated GFR 37 L, Est GFR ( Amer) 45 L, Glucose 85, Calcium 8.8, Total Bilirubin 2.2 H, AST 27, ALT 19, Alkaline Phosphatase 67, Total Protein 4.6 L, Albumin 1.9 L, Globulin 2.7, Albumin/Globulin Ratio 0.7 L I & O for Last 24 hours: Intake & Output 10/13/21 10/14/21 10/15/21 10/16/21 11:59 11:59 11:59 11:59 Intake Total 1220 / 1220 120 / 120 360 / 360 575 / 575 Output Total 200 / 200 180 / 180 Balance 1220 / 1220 120 / 120 160 / 160 395 / 395 Weight 145 lb 8 oz 146 lb 7.955 oz 145 lb 3 oz Microbiology Reports for the Last 24 Hours: Microbiology 10/12/21 20:21 Blood Blood Culture - Final Klebsiella pneumoniae - Constitutional no acute distress - *Routine Respiratory Exam Present: crackles (Bibasilar) - *Routine Cardiovascular Exam Present: RRR - *Routine Abdominal Exam Present: soft, normoactive bowel sounds. Absent: tenderness - *Routine Extremities Exam Present: edema (Left lower extremity). Absent: cyanosis, clubbing - *Routine Skin Exam Present: warm. Absent: rash - *Routine Neurological Exam Present: alert, oriented X3 Assessment and Plan (1) Diastolic congestive heart failure Status: Acute Category: Medical Code(s): I50.30 - Unspecified diastolic (congestive) heart failure (2) Edema of both legs Status: Acute Category: Medical Code(s): R60.0 - Localized edema (3) Left hip pain Status: Acute Category: Medical Code(s): M25.552 - Pain in left hip (4) Delirium due to general medical condition Status: Acute Category: Medical Code(s): F05 - Delirium due to known physiological condition (5) COPD (chronic obstructive pulmonary disease) Status: Chronic Qualifiers: COPD type: unspecified COPD Qualified Code(s): J44.9 - Chronic obstructive pulmonary disease, unspecified Category: Medical Code(s): J44.9 - Chronic obstructive pulmonary disease, unspecified (6) GERD (gastroesophageal reflux disease) Status: Chronic Category: Medical Code(s): K21.9 - Gastro-esophageal reflux disease without esophagitis (7) Hyponatremia Status: Acute Category: Medical Code(s): E87.1 - Hypo-osmolality and hyponatremia (8) Renal insufficiency Status: Acute Category: Medical Code(s): N28.9 - Disorder of kidney and ureter, unspecified (9) Hypertension Status: Chronic Category: Medical Code(s): I10 - Essential (primary) hypertension (10) TOVAR (nonalcoholic steatohepatitis) Status: Chronic Category: Medical Code(s): K75.81 - Nonalcoh
--- NOTE | 2021-10-16 08:54 | XR_ITS ---
FINAL REPORT CLINICAL HISTORY: Confirm PICC line placement COMPARISON: 10/12/2021 FINDINGS: SINGLE VIEW CHEST The heart is normal in size. The mediastinum is unremarkable. Left-sided PICC line terminates in the mid SVC. There are mild right lung opacities, may represent atelectasis or pneumonia. Small right effusion is identified. There is no pneumothorax. IMPRESSION: Left PICC line terminates in the mid SVC. Right lung atelectasis or pneumonia with small right effusion. Reviewed, Interpreted and Dictated by Mark Turner III, MD Transcribed by Cayla Hauser Authenticated by Mark Turner III, MD on 10/16/2021 11:50:[address] [facility]
--- NOTE | 2021-10-16 10:23 | HMH.ACPN ---
Internal Medicine - PN: Subj *Date: 10/16/21 *Time: 10:23 Exam Vital signs and Labs for Last 24 Hours: Temp Pulse Resp BP Pulse Ox 97.7 F 77 18 92/52 L 96 10/16/21 08:00 10/16/21 08:00 10/16/21 08:00 10/16/21 08:00 10/16/21 08:00 Laboratory Results - last 24 hr 10/16/21 06:25: WBC 3.2 L, RBC 3.18 L, Hgb 10.0 L, Hct 31.4 L, MCV 98.6, MCH 31.4 H, MCHC 31.9, RDW 16.8, Plt Count 74 L, MPV 11.6 H, Neut % (Auto) 70.2, Lymph % (Auto) 16.4, [place] % (Auto) 11.6 H, Eos % (Auto) 1.4, Baso % (Auto) 0.5, Neut # (Auto) 2.2, Lymph # (Auto) 0.5 L, [place] # (Auto) 0.4, Eos # (Auto) 0.0, Baso # (Auto) 0.0 10/16/21 06:25: Sodium 128 L, Potassium 4.0, Chloride 99, Carbon Dioxide 29, Anion Gap 4.0 L, BUN 31 H, Creatinine 1.40 H, Estimated Creat Clear 37, Estimated GFR 37 L, Est GFR ( Amer) 45 L, Glucose 85, Calcium 8.8, Total Bilirubin 2.2 H, AST 27, ALT 19, Alkaline Phosphatase 67, Total Protein 4.6 L, Albumin 1.9 L, Globulin 2.7, Albumin/Globulin Ratio 0.7 L I & O for Last 24 hours: Intake & Output 10/13/21 10/14/21 10/15/21 10/16/21 23:59 23:59 23:59 23:59 Intake Total 240 / 240 240 / 240 240 / 355 455 / 455 Output Total 200 / 200 100 / 100 80 / 80 Balance 240 / 240 40 / 40 140 / 255 375 / 375 Weight 65.998 kg 66.45 kg 65.856 kg Microbiology Reports for the Last 24 Hours: Microbiology 10/12/21 20:21 Blood Blood Culture - Final Klebsiella pneumoniae Assessment and Plan (1) Diastolic congestive heart failure Status: Acute Category: Medical Code(s): I50.30 - Unspecified diastolic (congestive) heart failure (2) Edema of both legs Status: Acute Category: Medical Code(s): R60.0 - Localized edema (3) Left hip pain Status: Acute Category: Medical Code(s): M25.552 - Pain in left hip (4) Delirium due to general medical condition Status: Acute Category: Medical Code(s): F05 - Delirium due to known physiological condition (5) COPD (chronic obstructive pulmonary disease) Status: Chronic Qualifiers: COPD type: unspecified COPD Qualified Code(s): J44.9 - Chronic obstructive pulmonary disease, unspecified Category: Medical Code(s): J44.9 - Chronic obstructive pulmonary disease, unspecified (6) GERD (gastroesophageal reflux disease) Status: Chronic Category: Medical Code(s): K21.9 - Gastro-esophageal reflux disease without esophagitis (7) Hyponatremia Status: Acute Category: Medical Code(s): E87.1 - Hypo-osmolality and hyponatremia (8) Renal insufficiency Status: Acute Category: Medical Code(s): N28.9 - Disorder of kidney and ureter, unspecified (9) Hypertension Status: Chronic Category: Medical Code(s): I10 - Essential (primary) hypertension (10) TOVAR (nonalcoholic steatohepatitis) Status: Chronic Category: Medical Code(s): K75.81 - Nonalcoholic steatohepatitis (TOVAR) (11) Bacteremia Status: Acute Category: Medical Code(s): R78.81 - Bacteremia (12) Bilateral lower leg cellulitis Status: Acute Category: Medical Code(s): L03.116 - Cellulitis of left lower limb; L03.115 - Cellulitis of right lower limb The patient's infection will respond to the chosen ABx?: Yes (KLEBSIELLA SENS TO LEVAQUIN) Is the patient receiving the right drug, dose, and route?: Yes Could a more targeted ABx be ordered?: No
--- NOTE | 2021-10-16 16:03 | PC.NURSE ---
Routine reassessment completed. BP at 90/54, all other VSS. Lungs noted to have expiratory wheezes throughout. BLE noted to have 3+ pitting edema. Redness remains on left leg. Pt. has had more of an appetite for breakfast and lunch. Pt. denies pain. Purewick remains in place. 75ML tea colored urine noted in canister. No further changes from previous assessment. Pt. denies needs, call light and phone in place, will continue to monitor.
--- NOTE | 2021-10-16 16:47 | PC.NURSE ---
Family member Lida Landeros called in for update on pt. after receiving password Nurse updated family member on plans for discharge and approval by insurance for [address] per [facility] Care Management.
--- NOTE | 2021-10-16 18:21 | PC.NURSE ---
pt arrived to 2nd floor from OB at this time,
--- NOTE | 2021-10-16 18:26 | PC.NURSE ---
Addendum entered by Kaylyn Gonzalez RN 10/16/21 18:28: Pt. accompanied by staff x2. Original Note: Pt. transported to room 202 at this time, via bed.
[2021-10-17 04:00] VITALS: BP 87/53; PULSE 95; RESP 16; TEMP 36.7; O2SAT 94
[2021-10-17 05:09] VITALS: BMI 24.9
[2021-10-17 06:13] VITALS: PULSE 90; PULSE 92; O2SAT 93
[2021-10-17 08:00] VITALS: BP 92/62; PULSE 94; RESP 17; TEMP 36.7; O2SAT 96
--- NOTE | 2021-10-17 08:05 | HMH.ACPN2 ---
<Audra Vang - Last Filed: 10/17/21 08:05> Internal Medicine - PN: Subj *Date: 10/17/21 *Time: 08:05 Interval history: Patient is sleeping this morning and sleeps through most of the exam. She denies any pain. She has had minimal p.o. intake and minimal urinary output. Exam Vital signs and Labs for Last 24 Hours: Temp Pulse Resp BP Pulse Ox 98.0 F 90 16 87/53 L 93 L 10/17/21 04:00 10/17/21 06:13 10/17/21 04:00 10/17/21 04:00 10/17/21 06:13 I & O for Last 24 hours: Intake & Output 10/14/21 10/15/21 10/16/21 10/17/21 11:59 11:59 11:59 11:59 Intake Total 120 / 120 360 / 360 695 / 695 1720 / 1720 Output Total 200 / 200 180 / 180 525 / 525 Balance 120 / 120 160 / 160 515 / 515 1195 / 1195 Weight 146 lb 7.955 oz 145 lb 3 oz 146 lb Microbiology Reports for the Last 24 Hours: Microbiology 10/12/21 20:21 Blood Blood Culture - Final Klebsiella pneumoniae - Constitutional no acute distress - *Routine Respiratory Exam Present: rales, rhonchi - *Routine Cardiovascular Exam Present: RRR - *Routine Abdominal Exam Present: soft, normoactive bowel sounds. Absent: tenderness - *Routine Extremities Exam Present: edema (Bilateral lower extremity edema worse on the left). Absent: cyanosis, clubbing - *Routine Skin Exam Present: warm. Absent: rash - *Routine Neurological Exam Present: altered mental status Assessment and Plan (1) Diastolic congestive heart failure Status: Acute Category: Medical Code(s): I50.30 - Unspecified diastolic (congestive) heart failure (2) Edema of both legs Status: Acute Category: Medical Code(s): R60.0 - Localized edema (3) Left hip pain Status: Acute Category: Medical Code(s): M25.552 - Pain in left hip (4) Delirium due to general medical condition Status: Acute Category: Medical Code(s): F05 - Delirium due to known physiological condition (5) COPD (chronic obstructive pulmonary disease) Status: Chronic Qualifiers: COPD type: unspecified COPD Qualified Code(s): J44.9 - Chronic obstructive pulmonary disease, unspecified Category: Medical Code(s): J44.9 - Chronic obstructive pulmonary disease, unspecified (6) GERD (gastroesophageal reflux disease) Status: Chronic Category: Medical Code(s): K21.9 - Gastro-esophageal reflux disease without esophagitis (7) Hyponatremia Status: Acute Category: Medical Code(s): E87.1 - Hypo-osmolality and hyponatremia (8) Renal insufficiency Status: Acute Category: Medical Code(s): N28.9 - Disorder of kidney and ureter, unspecified (9) Hypertension Status: Chronic Category: Medical Code(s): I10 - Essential (primary) hypertension (10) TOVAR (nonalcoholic steatohepatitis) Status: Chronic Category: Medical Code(s): K75.81 - Nonalcoholic steatohepatitis (TOVAR) (11) Bacteremia Status: Acute Category: Medical Code(s): R78.81 - Bacteremia (12) Bilateral lower leg cellulitis Status: Acute Category: Medical Code(s): L03.116 - Cellulitis of left lower limb; L03.115 - Cellulitis of right lower limb - Assessment and plan all Dx Assessment and Plan for all problems:: Patient clinically appears worse this morning. She is more lethargic. Will check labs. Care management states she does have a bed ready at [facility] when she is stable to discharge. <Presley Peña - Last Filed: 10/17/21 08:50> Internal Medicine - PN: Subj *Date: 10/17/21 *Time: 08:49 Exam Vital signs and Labs for Last 24 Hours: Temp Pulse Resp BP Pulse Ox 98.0 F 90 16 87/53 L 93 L 10/17/21 04:00 10/17/21 06:13 10/17/21 04:00 10/17/21 04:00 10/17/21 06:13 I & O for Last 24 hours: Intake & Output 10/14/21 10/15/21 10/16/21 10/17/21 23:59 23:59 23:59 23:59 Intake Total 240 / 240 240 / 355 2295 / 2295 Output Total 200 / 200 100 / 100 555 / 555 50 / 50 Balance 40 / 40 140 / 255 1740 / 1740 -50 /
[2021-10-17 09:41] LABS: Chloride 98 mmol/L (98-107)
[2021-10-17 09:42] LABS: Sodium 126 mmol/L (136-145)
[2021-10-17 09:44] LABS: Alanine Aminotransferase 23 U/L (12-78); Alkaline Phosphatase 118 U/L (38-126); Aspartate Amino Transferase 29 U/L (14-36); Bilirubin,Total 1.5 mg/dl (0.2-1.3); Blood Urea Nitrogen 34 mg/dl (7-17); Carbon Dioxide 27 mmol/L (22.0-30.0); Creatinine Clearance Estimated 37 mL/min (50-200); Estimated Glomerular Filt Rate 37 ml/min (>60); GFR (African American) 45 ML/MIN (>60)
[2021-10-17 09:46] LABS: Anion Gap 4.9 mEq/L (5-15); Potassium 3.9 mmoL/L (3.5-5.1)
[2021-10-17 09:49] LABS: Albumin/Globulin Ratio 0.7 (1.1-1.8); Globulin 2.8 g/dL (1.3-3.2); Total Protein,Serum 4.8 g/dl (6.3-8.2)
[2021-10-17 09:50] LABS: Calcium 8.7 mg/dl (8.4-10.2); Glucose 110 mg/dl (74-100)
[2021-10-17 09:57] LABS: Basophils % 0.3 % (0.1-2.0); Eosinophils # 0.1 K/mm3 (0.0-0.4); Eosinophils % 1.7 % (0.1-12.0); Hematocrit 32.8 % (37.0-47.0); Hemoglobin 10.6 g/dL (12.2-16.2); Lymphocytes # 0.8 K/mm3 (0.7-4.5); Lymphocytes % 18.1 % (10-50); Mean Corpuscular HGB Conc 32.2 g/dL (31.8-35.4); Mean Corpuscular Hemoglobin 31.2 pg (27.0-31.2); Mean Corpuscular Volume 96.9 fl (81-99); Mean Platelet Volume 12.1 fl (7.4-10.4); Monocytes # 0.4 K/mm3 (0.1-1.0); Neutrophils % 70.9 % (37.0-80.0); Platelet Count 81 K/mm3 (142-424); Red Blood Count 3.39 M/mm3 (4.20-5.40); Red Cell Distribution Width 16.7 % (11.5-17.5); White Blood Count 4.2 K/mm3 (4.8-10.8)
--- NOTE | 2021-10-17 10:45 | HMH.DCSUM ---
General - General Admission date:: 10/13/21 Discharge date: 10/17/21 HPI HPI: Ms. Landeros is a 71-year-old female patient with a history of hypertension, GERD, anxiety, degenerative disc disease, asthma, COPD, upper GI bleed in 2013, microvascular ischemic brain disease per MRI in 2014, type tobacco abuse, esophageal varices, hypertension, and cirrhosis, [place] who was brought to [facility] emergency room for evaluation. Patient states that her left hip hurt and they evaluated her brain. With evaluation in the emergency room CT of the head showed chronic changes in the brain but no acute intracranial . Chest x-ray showed interstitial opacities bilaterally concerning for pneumonia. Noted was an elevated bilirubin at four. Lactate was also elevated. Blood chemistry showed low sodium at 127 and potassium of 3.7 with repeat this morning sodium is 125 and potassium is four. BUN was 20 with a creatinine of 1.2 and this morning BUN is 26 with a creatinine of 1.2. Lactate has decreased to 1.9. Troponin I's are normal. This a.m. with exam patient denies chest pain and shortness of air. Her only complaint is her left hip discomfort. She is not hungry and did not eat breakfast. She is a poor historian and has difficulty in remembering why she came to the hospital and what happened to her yesterday. According to family she is refusing to take her medicine and needs help with all her activities. Patient states she is up on a motorized wheelchair. Hospital Course Hospital Course: the patient received an liter of IV fluids in the emergency room and was started on Levaquin. Urine and blood cultures were ordered and she was also started on duo nebs. An x-ray was ordered of her left hip. It showed a stable fracture through the left femoral neck, but no definitive acute fracture. PT and OT were ordered as well. Cardiology was consulted. Cardiology saw the patient and she had ruled out for an AR, but did have an elevated BNP on admission. She was started on Lasix and had an echo. It showed a preserved ejection fraction. She was able to eat more throughout her stay. Her blood culture was growing gram-negative rods. The patient admitted to not taking her medications at home for an unknown period of time. She was restarted on home medications. She was given 2 doses of IV Lasix and then switched over to oral Lasix 20 mg daily. She was tachycardic and was started on Toprol 25 mg daily. Her renal function increased, but then stayed stable. Her sodium decreased. Her urine culture showed no growth at 48 hours, but her blood culture was positive for Enterobactercloacae klebsiella pneumoniae which was sensitive to Levaquin. She did seem to get slightly dehydrated with the Lasix and was given a liter of normal saline due to low blood pressure. Her Toprol was held. A PICC line was ordered for continued IV antibiotics. By 10/17/2021, she was stable to be discharged to [facility] for short-term rehab and antibiotics. Objective Vital signs: Temp Pulse Resp BP Pulse Ox 98.1 F 94 H 17 92/62 L 96 10/17/21 08:00 10/17/21 08:00 10/17/21 08:00 10/17/21 08:00 10/17/21 08:00 Narrative: - Constitutional no acute distress - *Routine HEENT Exam Head: Absent: normocephalic, atraumatic Eye: Present: PERRL. Absent: conjunctival icterus, scleral injection ENT: Present: mucous membranes moist, oropharynx clear - *Routine Neck Exam Present: supple. Absent: carotid bruit, lymphadenopathy, thyromegaly - *Routine Respiratory Exam Present: CTA bilaterally (Anteriorly and posteriorly) - *Routine Cardiovascular Exam Present: RRR - *Routine Abdominal Exam Present: soft, normoactive bowel sounds. Absent: tenderness - *Routine Rectal Exam Rectal:: deferred - *Routine Genitalia Exam Genitalia:: deferred - *Routine Extremities Exam Present: edema. Absent: calf tenderness Comments: Left hip tend
--- NOTE | 2021-10-21 14:26 | CARE MANAGER ---
CM attempted to call patient to discuss post discharge status, but was unable to reach. Patient was discharged to [facility]. Per [facility], patient is doing well with therapy and has no known needs at this time.
== END 2021-10-17 12:50 | DRG 602 ==
LOC: ER 20:56 → 2ND 22:39 → OB 10-14 07:45 → 2ND 10-16 18:02
PROVIDERS: Nurse Practitioner Family; Physician Assistant; Admitting Provider Family Medicine; Emergency Provider Emergency Medicine; PCP Family Medicine; Visit Provider Family Medicine
DX: L03.116 Cellulitis of left lower limb (principal); I50.31 Acute diastolic (congestive) heart failure; R78.81 Bacteremia; F05 Delirium due to known physiological condition; I11.0 Hypertensive heart disease with heart failure; M25.552 Pain in left hip; J44.9 Chronic obstructive pulmonary disease, unspecified; Z20.822 Contact with and (suspected) exposure to COVID-19; L03.115 Cellulitis of right lower limb; F32.A Depression, unspecified; M19.90 Unspecified osteoarthritis, unspecified site; F41.9 Anxiety disorder, unspecified; K21.9 Gastro-esophageal reflux disease without esophagitis; N28.9 Disorder of kidney and ureter, unspecified; F17.210 Nicotine dependence, cigarettes, uncomplicated; K74.60 Unspecified cirrhosis of liver; K75.81 Nonalcoholic steatohepatitis (NASH); Z96.649 Presence of unspecified artificial hip joint
CPT/HCPCS: 36410; 36415; 36569; 70450; 71045; 73502; 80048; 80053; 80076; 81001; 82140; 82803; 82962; 83605; 83735; 83880; 84145; 84443; 84484; 85025; 85651; 86140; 87040; 87077; 87086; 87186; 93005; 93306; 93308; 94640; 94761; 96365; 96366; 96375; 97110; 97162; 97166; 97530; C1751; C9803; J1956; U0003; U0005

== ENCOUNTER → 2021-10-21 14:02 | Outpatient (REF) | payer MEDICARE, MEDICAID, SELFPAY ==
[2021-10-21 14:44] LABS: Alanine Aminotransferase 25 U/L (12-78); Albumin/Globulin Ratio 0.7 (1.1-1.8); Alkaline Phosphatase 90 U/L (38-126); Aspartate Amino Transferase 38 U/L (14-36); Bilirubin,Total 1.8 mg/dl (0.2-1.3); Blood Urea Nitrogen 38 mg/dl (7-17); Calcium 8.9 mg/dl (8.4-10.2); Carbon Dioxide 27 mmol/L (22.0-30.0); Chloride 101 mmol/L (98-107); Estimated Glomerular Filt Rate 37 ml/min (>60); GFR (African American) 45 ML/MIN (>60); Globulin 2.9 g/dL (1.3-3.2); Glucose 75 mg/dl (74-100); Sodium 130 mmol/L (136-145); Total Protein,Serum 4.9 g/dl (6.3-8.2)
[2021-10-21 14:48] LABS: Basophils % 0.7 % (0.1-2.0); Eosinophils % 0.8 % (0.1-12.0); Hematocrit 33.1 % (37.0-47.0); Hemoglobin 10.9 g/dL (12.2-16.2); Lymphocytes # 0.8 K/mm3 (0.7-4.5); Lymphocytes % 26.8 % (10-50); Mean Corpuscular Hemoglobin 32.1 pg (27.0-31.2); Mean Platelet Volume 12.7 fl (7.4-10.4); Monocytes # 0.3 K/mm3 (0.1-1.0); Monocytes % 11.3 % (1.7-9.3); Neutrophils # 1.7 K/mm3 (1.8-7.8); Neutrophils % 60.5 % (37.0-80.0); Platelet Count 65 K/mm3 (142-424); Red Blood Count 3.41 M/mm3 (4.20-5.40); Red Cell Distribution Width 16.9 % (11.5-17.5); White Blood Count 2.8 K/mm3 (4.8-10.8)
== END ==
LOC: LAB.DROPOF 14:02
PROVIDERS: Visit Provider Family Medicine
DX: I11.0 Hypertensive heart disease with heart failure (principal)
CPT/HCPCS: 80053; 85025

== ENCOUNTER 2021-11-04 12:23 | Inpatient (IN) | payer MEDICARE, MEDICAID, SELFPAY ==
[2021-11-04] VITALS (13 sets, daily range): BP systolic 85–117; BP diastolic 44–79; PULSE 83–125; RESP 18–28; TEMP 35.5–36.6; O2SAT 88–98; BMI 25.7; BMI 22.8
--- NOTE | 2021-11-04 12:30 | ECG_ITS ---
APPROVED REPORT Exam: Resting ECG HR:114 bpm ECG Measurements Heart Rate 114 AXES QRSd 54 QRS -13 QT 345 T 134 QTc 413 Conclusion SUPRAVENTRICULAR TACHYCARDIA LOW QRS VOLTAGE [QRS DEFLECTION < 0.5/1.0 mV IN LIMB/CHEST LEADS] POSSIBLE ANTERIOR MYOCARDIAL INFARCTION , OF INDETERMINATE AGE [30 ms Q WAVE IN V3/V4, OR R < 0.2 mV IN V4] MODERATE T-WAVE ABNORMALITY, CONSIDER LATERAL ISCHEMIA [-0.1+ mV T-WAVE IN I/aVL/V5/V6] ABNORMAL ECG UNCONFIRMED REPORT Electronically signed by : Price Pedraza MD 11/05/2021 18:13:52
--- NOTE | 2021-11-04 12:36 | HMH.EDGENADL ---
ED Disposition Clinical Impression: UTI (urinary tract infection) Qualifiers: Urinary tract infection type: acute pyelonephritis Qualified Code(s): N10 - Acute pyelonephritis Pneumonia Qualifiers: Pneumonia type: due to unspecified organism Laterality: bilateral Lung location: unspecified part of lung Qualified Code(s): J18.9 - Pneumonia, unspecified organism Disposition: Admitted As Inpatient Condition on Discharge: Serious - Critical Care Critical Care Time: Yes (Sepsis, frequent reassessment. ) Attestation: On 11/04/21, the high probability of a clinically significant, sudden or life threatening deterioration of the following system(s) required my full and direct attention, intervention and personal management. The time I documented below is in addition to time spent performing reported procedures but includes the following listed in this critical care notation. Vital system(s) involved:: Shock (Septic) My critical care processes included: Assessment & monitoring of V/S Medical Decision Making - Medical Records Medical records reviewed: Yes: I reviewed the patient's medical records. - Jared Inquiry Pt receiving controlled substance: No Vital Signs: 11/04/21 12:24 11/04/21 12:34 11/04/21 13:00 Temperature 96.2 F L Temperature Source Rectal Pulse Rate 114 H 117 H Pulse Rate [Right Radial] 114 H Respiratory Rate 27 H 24 28 H Blood Pressure 89/64 L 94/47 L Blood Pressure [Right Arm] 89/64 L Blood Pressure Mean 70 55 Blood Pressure Mean [Right Arm] 72 Blood Pressure Source Blood Pressure Source [Right Arm] Automatic Cuff Blood Pressure Position [Right Arm] Sitting 02 Sat by Pulse Oximetry 88 L 98 96 Oxygen Delivery Method Room Air Nasal Cannula Nasal Cannula Oxygen Flow Rate (LPM) 2 2 11/04/21 13:30 11/04/21 14:31 11/04/21 15:01 Temperature Temperature Source Pulse Rate 118 H 120 H 122 H Pulse Rate [Right Radial] Respiratory Rate 24 24 28 H Blood Pressure 104/47 L 110/67 87/53 L Blood Pressure [Right Arm] Blood Pressure Mean 52 79 64 Blood Pressure Mean [Right Arm] Blood Pressure Source Blood Pressure Source [Right Arm] Blood Pressure Position [Right Arm] 02 Sat by Pulse Oximetry 98 98 96 Oxygen Delivery Method Nasal Cannula Nasal Cannula Non-Rebreather Oxygen Flow Rate (LPM) 2 2 11/04/21 15:32 11/04/21 16:00 Temperature Temperature Source Pulse Rate 125 H 118 H Pulse Rate [Right Radial] Respiratory Rate 24 24 Blood Pressure 85/44 L 89/51 L Blood Pressure [Right Arm] Blood Pressure Mean 64 59 Blood Pressure Mean [Right Arm] Blood Pressure Source Automatic Cuff Blood Pressure Source [Right Arm] Blood Pressure Position [Right Arm] 02 Sat by Pulse Oximetry 97 97 Oxygen Delivery Method Nasal Cannula Oxygen Flow Rate (LPM) 2 - Lab Data Lab results reviewed: Yes: I reviewed the patient's lab results. Lab Results 11/04/21 12:30: WBC 5.7, RBC 3.77 L, Hgb 12.1 L, Hct 36.9 L, MCV 98.0, MCH 32.0 H, MCHC 32.6, RDW 16.8, Plt Count 50 L, MPV 12.6 H, Neut % (Auto) 89.2 H, Lymph % (Auto) 5.5 L, [place] % (Auto) 4.7, Eos % (Auto) 0.0 L, Baso % (Auto) 0.6, Neut # (Auto) 5.1, Lymph # (Auto) 0.3 L, [place] # (Auto) 0.3, Eos # (Auto) 0.0, Baso # (Auto) 0.0, Total Counted 100, Neutrophils % (Manual) 88 H, Lymphocytes % (Manual) 6 L, Monocytes % (Manual) 5, Eosinophils % (Manual) 1, Platelet Estimate Marked decrease, RBC Morphology Normal 11/04/21 12:30: Sodium 141, Potassium 4.0, Chloride 113 H, Carbon Dioxide 21 L, Anion Gap 11.0, BUN 69 H, Creatinine 1.50 H, Estimated Creat Clear 34, Estimated GFR 34 L, Est GFR ( Amer) 41 L, Glucose 72 L, Calcium 8.1 L, Total Bilirubin 4.1 H, AST 84 H, ALT 50, Alkaline Phosphatase 136 H, Troponin I 0.04 H, Total Protein 5.0 L, Albumin 2.0 L, Globulin 3.0, Albumin/Globulin Ratio 0.7 L 11/04/21 12:37: POC Glucose 76 11/04/21 12:54: Urine Color Brown, Urine Appearance Turbid, Urine pH 5.5, Ur Specific [place] >= 1.030
--- NOTE | 2021-11-04 12:41 | PC.NURSE ---
resp called and brought down an hour worth of duos per the er doc
[2021-11-04 12:45] LABS: POC Glucose,Bedside 76 (70-110)
--- NOTE | 2021-11-04 13:02 | XR_ITS ---
FINAL REPORT CLINICAL HISTORY: AMS, weakness, SOA COMPARISON: October 16, 2021 FINDINGS: SINGLE VIEW CHEST. A left-sided PICC line is present with the tip in the SVC. The heart is normal in size. The mediastinum is unremarkable. There are dense bilateral airspace infiltrates greater on the right than the left which is consistent with extensive acute pneumonia. Significantly worse than on the prior exam. There is no pneumothorax. IMPRESSION: Findings of extensive acute pneumonia, right greater than left, significantly worsened from the prior exam. Reviewed, Interpreted and Dictated by Shayan Mccormick MD Transcribed by Laura Phelps Authenticated by Shayan Mccormick MD on 11/04/2021 01:53:22 PM [facility]
--- NOTE | 2021-11-04 13:02 | CT_ITS ---
PROCEDURE INFORMATION: Exam: CTA Chest With Contrast Exam date and time: 11/04/2021 2:05 PM Age: 71 years old Clinical indication: Shortness of breath; Additional info: SOA, weakness TECHNIQUE: Imaging protocol: Computed tomographic angiography of the chest with contrast. 3D rendering (Not supervised by radiologist): MIP and/or 3D reconstructed images were created by the technologist. Radiation optimization: All CT scans at this facility use at least one of these dose optimization techniques: automated exposure control; mA and/or kV adjustment per patient size (includes targeted exams where dose is matched to clinical indication); or iterative reconstruction. Contrast material: ISO 370; Contrast volume: 60 ml; Contrast route: INTRAVENOUS (IV); COMPARISON: CR XR CHEST PORTABLE 11/04/2021 1:06 PM FINDINGS: Pulmonary arteries: There is no evidence of pulmonary embolus. Aorta: Atherosclerotic vascular calcification involving the aortic arch and coronary arteries. Lungs: There are patchy bilateral ground-glass regions of opacification most pronounced in the right upper and middle lobes however also demonstrated in the left upper lobe and left lower lobe. The findings are nonspecific however may reflect features of pneumonia related to Covid-19. Other processes such is influenza as well as organizing pneumonia should be considered. Pleural spaces: There are small bilateral pleural effusions. Heart: See Aorta finding. Lymph nodes: Unremarkable. No enlarged lymph nodes. Liver: Nodularity of the hepatic contour compatible with cirrhosis. Mild splenomegaly. Intraperitoneal space: Limited visualization of the abdomen is significant for a moderate amount of ascites. Bones/joints: Unremarkable. No acute fracture. Soft tissues: Unremarkable. IMPRESSION: 1. No evidence of pulmonary embolus. 2. Patchy bilateral ground-glass regions of consolidation, more extensive in the right lung. Accompanying bilateral pleural effusions. Findings are nonspecific. Clinically correlate as findings may be related to Covid-19 pneumonia. Other etiologies including influenza as well as organizing pneumonia should be considered. 3. Moderate amount of ascites incompletely visualized. 4. Cirrhosis. 5. Mild splenomegaly.
[2021-11-04 13:12] LABS: Basophils % 0.6 % (0.1-2.0); Hematocrit 36.9 % (37.0-47.0); Hemoglobin 12.1 g/dL (12.2-16.2); Lymphocytes # 0.3 K/mm3 (0.7-4.5); Lymphocytes % 5.5 % (10-50); Mean Corpuscular HGB Conc 32.6 g/dL (31.8-35.4); Mean Platelet Volume 12.6 fl (7.4-10.4); Monocytes # 0.3 K/mm3 (0.1-1.0); Monocytes % 4.7 % (1.7-9.3); Neutrophils # 5.1 K/mm3 (1.8-7.8); Neutrophils % 89.2 % (37.0-80.0); Red Blood Count 3.77 M/mm3 (4.20-5.40); Red Cell Distribution Width 16.8 % (11.5-17.5); White Blood Count 5.7 K/mm3 (4.8-10.8)
[2021-11-04 13:14] LABS: Chloride 113 mmol/L (98-107); Sodium 141 mmol/L (136-145)
[2021-11-04 13:15] LABS: Microscopic, Urine URINE MICROSCOPIC (MICROSCOPIC)
[2021-11-04 13:16] LABS: Blood Urea Nitrogen 69 mg/dl (7-17); Creatinine Clearance Estimated 34 mL/min (50-200); Estimated Glomerular Filt Rate 34 ml/min (>60); GFR (African American) 41 ML/MIN (>60)
[2021-11-04 13:17] LABS: Alanine Aminotransferase 50 U/L (12-78); Albumin/Globulin Ratio 0.7 (1.1-1.8); Alkaline Phosphatase 136 U/L (38-126); Aspartate Amino Transferase 84 U/L (14-36); Bilirubin,Total 4.1 mg/dl (0.2-1.3); Calcium 8.1 mg/dl (8.4-10.2); Carbon Dioxide 21 mmol/L (22.0-30.0); Glucose 72 mg/dl (74-100)
[2021-11-04 13:20] LABS: ABG Base Excess -5.6 mmol/L (-2.4-2.3); ABG HCO3 19.1 mmhg (22.0-26.0); ABG Oxygen Saturation 93 % (90-100); ABG PCO2 31.1 mmhg (35.0-45.0); ABG PH 7.41 mmol/L (7.35-7.45); ABG PO2 70.8 mmhg (80-100)
[2021-11-04 13:23] LABS: Allen's Test ACCEPTABLE; Oxygen 2.5 %; PEEP 0; Pressure Support 0; Source Left Radial; Tidal Volume 0; Vent Rate 0
[2021-11-04 13:26] LABS: Appearance,Urine TURBID (Clear); Blood, Urine 3+ (Negative); Color,Urine BROWN (Yellow); Glucose,Urine (UA) Negative (Negative); Ketones,Urine TRACE (Negative); Leukocyte Esterase,Urine 2+ (Negative); Nitrate,Urine POSITIVE (Negative); PH,Urine 5.5 (5.0-8.5); Protein,Urine 2+ (Negative); Specific Gravity, Urine >= 1.030 (1.005-1.030)
[2021-11-04 13:29] LABS: Troponin I 0.04 ng/ml (0.00-0.034)
[2021-11-04 13:32] LABS: Influenza A, PCR Not Detected (NotDetected); Influenza B, PCR Not Detected (NotDetected)
--- NOTE | 2021-11-04 13:38 | CT_ITS ---
PROCEDURE INFORMATION: Exam: CT Head Without Contrast Exam date and time: 11/04/2021 2:01 PM Age: 71 years old Clinical indication: Altered mental status/memory loss; Additional info: AMS TECHNIQUE: Imaging protocol: Computed tomography of the head without contrast. Radiation optimization: All CT scans at this facility use at least one of these dose optimization techniques: automated exposure control; mA and/or kV adjustment per patient size (includes targeted exams where dose is matched to clinical indication); or iterative reconstruction. COMPARISON: CT HEAD/BRAIN WO CON 10/12/2021 9:05 PM FINDINGS: Brain: Previously demonstrated periventricular regions of diminished density consistent with small vessel ischemic change is again demonstrated. Interpretation of the posterior fossa is extremely limited secondary to excessive motion. There is no evidence of mass effect exerted upon the visualized ventricles. Cerebral ventricles: Ventricles are midline in position. Paranasal sinuses: Visualized sinuses are unremarkable. No fluid levels. Mastoid air cells: A right mastoid air cell retention cyst versus polyp is again partially visualized. Bones/joints: Unremarkable. No acute fracture. Soft tissues: Unremarkable. Other findings: There is extensive image degradation secondary to motion artifact. IMPRESSION: 1. Extremely limited study secondary to excessive patient motion. 2. Periventricular white matter tract changes again demonstrated consistent with chronic small vessel ischemia.
--- NOTE | 2021-11-04 13:48 | PC.NURSE ---
pt to CT via stretcher
[2021-11-04 13:49] LABS: Bilirubin,Urine 2+ (Negative)
[2021-11-04 13:50] LABS: Bacteria,Urine 4+ /lpf; Squamous Epithelial Cell,Urine Occasional #/hpf (0-5); WBC,Urine 20-50 #/hpf (0-3)
--- NOTE | 2021-11-04 14:00 | PC.NURSE ---
VS due at 1400- pt in CT
[2021-11-04 14:14] LABS: Platelet Count 50 K/mm3 (142-424)
[2021-11-04 14:15] LABS: MANUAL DIFFERENTIAL MANUAL DIFFERENTIAL (MANUAL DIFF)
[2021-11-04 14:15] LABS: Lactic Acid 4.5 mmol/L (0.7-2.1)
--- NOTE | 2021-11-04 14:17 | PC.NURSE ---
Bre in lab called critical results. notified. Platelets 50 Lactic 4.5
--- NOTE | 2021-11-04 14:18 | PC.NURSE ---
Pt returned from CT at this time.
[2021-11-04 14:26] LABS: Coronavirus 19, PCR Detected (NotDetected)
--- NOTE | 2021-11-04 14:32 | PC.NURSE ---
Pharmacy is going to mix antibiotics and send them down
[2021-11-04 14:39] LABS: Eosinophils % 1 % (0-3); Lymphocytes % 6 % (10-50); Monocytes % 5 % (2-9); Neutrophils % 88 % (42-76); Platelet Estimate Marked Decrease; RBC Morphology Normal; Total Cells Counted 100
--- NOTE | 2021-11-04 14:59 | PC.NURSE ---
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
--- NOTE | 2021-11-04 15:05 | PC.NURSE ---
care mgmnt called for admission
--- NOTE | 2021-11-04 15:19 | PC.NURSE ---
notified ER of need for tissue reperfussion assessment
--- NOTE | 2021-11-04 15:22 | HMH.PHACONS ---
- Pharmacy Consult Date: 11/04/21 Time: Referring provider: DR MIGUEL Reason for Consult:: VANCOMYCIN DOSING CONSULT Allergies and ADEs:: Allergies Allergy/AdvReac Type Severity Reaction Status Date / Time codeine [CODEINE] Allergy Intermediate I-RASH Verified 07/30/21 16:31 Penicillins [PENICILLINS] Allergy Intermediate I-RASH Verified 07/30/21 16:31 Sulfa (Sulfonamide Allergy Mild NA-NAUSEA/V Verified 07/30/21 16:31 Antibiotics) OMITING [SULFA (SULFONAMIDE ANTIBIOTICS)] Home Medications:: Home Medications Medication Instructions Recorded Confirmed Type Citalopram Hydrobromide 40 mg PO DAILY 10/12/21 10/12/21 History [Citalopram 40mg Tablet] Esomeprazole Magnesium 40 mg PO DAILY 10/12/21 10/12/21 History Oxybutynin Chloride [Oxybutynin 10 mg PO DAILY 10/12/21 10/12/21 History Chloride ER] Spironolactone 100 mg PO DAILY 10/12/21 10/12/21 History Albuterol Sulfate [Albuterol 2 puffs INHALATION Q4H PRN 10/13/21 10/13/21 History Sulfate Hfa] Docusate Sodium 100 mg PO BID 10/13/21 10/13/21 History Trazodone HCl 50 mg PO HS 10/13/21 10/13/21 History Levofloxacin/D5w [Levaquin 500 mg IV Q48H ml 10/17/21 Rx 500mg/100mL Premix IVPB] Height: 1.57 m Weight: 63.701 kg Laboratory Results:: Laboratory Results - last 24 hr 11/04/21 12:30: WBC 5.7, RBC 3.77 L, Hgb 12.1 L, Hct 36.9 L, MCV 98.0, MCH 32.0 H, MCHC 32.6, RDW 16.8, Plt Count 50 L, MPV 12.6 H, Neut % (Auto) 89.2 H, Lymph % (Auto) 5.5 L, [place] % (Auto) 4.7, Eos % (Auto) 0.0 L, Baso % (Auto) 0.6, Neut # (Auto) 5.1, Lymph # (Auto) 0.3 L, [place] # (Auto) 0.3, Eos # (Auto) 0.0, Baso # (Auto) 0.0, Total Counted 100, Neutrophils % (Manual) 88 H, Lymphocytes % (Manual) 6 L, Monocytes % (Manual) 5, Eosinophils % (Manual) 1, Platelet Estimate Marked decrease, RBC Morphology Normal 11/04/21 12:30: Sodium 141, Potassium 4.0, Chloride 113 H, Carbon Dioxide 21 L, Anion Gap 11.0, BUN 69 H, Creatinine 1.50 H, Estimated Creat Clear 34, Estimated GFR 34 L, Est GFR ( Amer) 41 L, Glucose 72 L, Calcium 8.1 L, Total Bilirubin 4.1 H, AST 84 H, ALT 50, Alkaline Phosphatase 136 H, Troponin I 0.04 H, Total Protein 5.0 L, Albumin 2.0 L, Globulin 3.0, Albumin/Globulin Ratio 0.7 L 11/04/21 12:37: POC Glucose 76 11/04/21 12:54: Urine Color Brown, Urine Appearance Turbid, Urine pH 5.5, Ur Specific [place] >= 1.030, Urine Protein 2+, Urine Glucose (UA) Negative, Urine Ketones Trace, Urine Blood 3+, Urine Nitrate Positive, Urine Bilirubin 2+ A, Urine Urobilinogen 2.0, Ur Leukocyte Esterase 2+ A, Urine RBC 10-20, Urine WBC 20-50, Ur Squamous Epith Cells Occasional, Urine Bacteria 4+ 11/04/21 13:02: Specimen Source Left radial, O2 % 2.5, ABG pH 7.41, ABG pCO2 31.1 L, ABG pO2 70.8 L, ABG HCO3 19.1 L, ABG Total CO2 20.0 L, ABG O2 Saturation 93, ABG Base Excess -5.6 L, Ricco Test Acceptable, Vent Rate 0, Tidal Volume 0, PEEP 0 11/04/21 13:05: SARS-CoV-2 (PCR) Detected A, Influenza A Untype (PCR) Not detected, Influenza Type B (PCR) Not detected 11/04/21 13:45: Lactate 4.5 H Medical History: Reports:: Anxiety, Asthma, Chronic Obstructive Pulmonary Disease (COPD), Depression, Gastroesophageal Reflux Disease(GERD), Hypertension Denies:: Cancer, Diabetes Mellitus Type 1, Diabetes Mellitus Type 2, Internal Pacemaker, MRSA, Seizures Assessment and Plan - Assessment and plan all Dx Assessment and Plan for all problems:: Pharmacokinetic dosing service Objective: Age: 71 yo Serum creatinine: 1.5 mg/dL Height: 62.0 Inches Weight (kg): 63.70 Diagnosis: ASPIRATION PNEUMONIA Assessment: IBW (kg): 50.10 Dosing wt(kg): 63.70 Estimated Creatinine clearance (ml/min): 26.4 CRCL method: Cockcroft and Gault using ibw(default). Drug selected: Vancomycin Loading dose (mg): 1250 MG Vd (liters): 44.6 (factor used: 0.7 L/kg) Mayur (hr-1): 0.026 Half life (hrs): 26.66
--- NOTE | 2021-11-04 15:30 | PC.NURSE ---
spoke with pt daughter Guillermina Cuevas, notified her of pts admission, she had previously called when pt first arrived at ER via ambulance. Has set up a password [place].
--- NOTE | 2021-11-04 16:31 | XR_ITS ---
PROCEDURE INFORMATION: Exam: XR Chest Exam date and time: 11/04/2021 4:35 PM Age: 71 years old Clinical indication: Shortness of breath; Patient HX: Covid +; Additional info: Pneumonia TECHNIQUE: Imaging protocol: XR of the chest. Views: 1 view. COMPARISON: CR XR CHEST PORTABLE 11/04/2021 1:06 PM, CT angio chest 11/04/2021 2:05 p.m. FINDINGS: Tubes, catheters and devices: There is a persistent left-sided PICC line. The tip is obscured due to overlap of an external monitor. Lungs: There are persistent partially confluent patchy infiltrates throughout the right lung as well as in the region of the left upper and lower lobes. Overall appearance unchanged compared with the previous study. Pleural spaces: Minimal blunting of the right costophrenic angle consistent with a pleural effusion again demonstrated. Heart/Mediastinum: Unremarkable. No cardiomegaly. Bones/joints: Unremarkable. IMPRESSION: 1. Persistent bilateral patchy infiltrates. 2. Small right pleural effusion again identified.
--- NOTE | 2021-11-04 17:07 | PC.NURSE ---
Pt arrived to the floor at this time
--- NOTE | 2021-11-04 17:27 | PC.NURSE ---
VS due at 1400- pt in CT
--- NOTE | 2021-11-04 17:28 | HMH.HP ---
*Admission Date: 11/04/21 <Cayla Bragg - 11/04/21 17:54> *Chief complaint: AMS <Cayla Bragg - 11/04/21 17:54> *History of present illness: Ms. Morales is a 71-year-old female with a history of hypertension, GERD, anxiety, degenerative disc disease, asthma, COPD, upper GI bleed in 2013, microvascular ischemic brain disease per MRI in 2014, esophageal varices, and cirrhosis, [place] [facility] [place] and found to be with altered mental status and respiratory distress. She was in constant motion and was unaware of verbal stimulation. She was unable to focus. She was nonverbal. Also noted with chest assessment wheezing and crackles throughout. Respiratory rate was 32 and she was tachycardic. At this point she was sent to [facility] emergency room for further evaluation. Nursing reported that she was able to eat and drink yesterday. She was recently hospitalized at [facility] with bacteremiaand pneumonia. She finished her course of Levaquin this week. She also recently was positive for Covid and came out of isolation yesterday. With evaluation in the emergency room She was found to have pneumonia and felt to be septic. She was given IV fluid boluses and started on vancomycin and cefepime. She was also felt to have a urinary tract infection. She was started on sepsis protocol. Blood chemistries show a BUN of 69 and creatinine of 1.5. Lactate was elevated at 4.5. Liver function studies with an AST of 84, ALT of 50 and alkaline phosphatase of 136. Total bilirubin was 4.1. Troponin I was 0.04. Covid was again noted as being positive. Blood pressure ranged from 87/53 with a high of 90/55. She was afebrile. Heart rate ranged from 120-125. She was thus admitted for ongoing treatment. <Cayla Bragg - 11/04/21 17:54> [facility] History Medical History: Reports:: Anxiety, Asthma, Chronic Obstructive Pulmonary Disease (COPD), Depression, Gastroesophageal Reflux Disease(GERD), Hypertension, Renal Insufficiency, Urinary Tract Infection Denies:: Cancer, Diabetes Mellitus Type 1, Diabetes Mellitus Type 2, Internal Pacemaker, MRSA, Seizures <Rayna Bragghy - 11/04/21 17:54> *Have you ever received a pneumonia vaccine?: No <MahsaCayla Chandana 11/04/21 17:54> *Have you received a flu vaccine this season?: No <BraggCayla - 11/04/21 17:54> Other Medical History: Reports: Arthritis, Cataracts, Liver Disease (Trejo and esophageal varices) <BraggCayla - 11/04/21 17:54> Laterality Cases: Bilateral: Arthroscopy Shoulder, Carpal Tunnel Release, Total Hip Replacement <Bragg,Cayla 11/04/21 17:54> Other Surgeries: Yes: Tubal Ligation, Other (left hip). No: Pacemaker <BraggCayla 11/04/21 17:54> Amputation: No <Cayla Bragg 11/04/21 17:54> Fractures: No <Bragg,Cayla 11/04/21 17:54> - *Social History Smoking Status: Current every day smoker <Bragg,Cayla 11/04/21 17:54> Tobacco Type: cigarettes <MahsaCayla 11/04/21 17:54> # Packs/Day (cigarettes): 1 <BraggCayla - 11/04/21 17:54> Alcohol Intake: never <BraggCayla 11/04/21 17:54> Substance Use Type: denies use <BraggCayla 11/04/21 17:54> *Occupational Status:: retired <BraggCayla 11/04/21 17:54> Housing: skilled nursing <BraggCayla 11/04/21 17:54> Household Members: other <Cayla Bragg 11/04/21 17:54> *Travel in the last 8 weeks: None <Bragg,Cayla - 11/04/21 17:54> - Psychiatric History Pschychiatric History:: Reports:: Anxiety, Depression <Cayla Bargg 11/04/21 17:54> Family Hx:: Diabetes, Heart Attack <Cayla Bragg 11/04/21 17:54> Review of Systems - Review of Systems Review of systems:: unable to obtain <Cayla Bragg 11/04/21 17:54> Meds Home Medications Medication Instructions Recorded Confirmed Type Citalopram Hydrobromide 40 mg PO DAILY 10/12/21 10/12/21 History [Citalopram 40mg Tablet] Esomeprazole Magnesium 40 mg PO DAILY
[2021-11-04 17:49] LABS: Reflex Lactic Add Lactic Reflex
--- NOTE | 2021-11-04 17:57 | PC.WOUNDNOTE ---
Photos taken by Ayde Dunaway RN, Uploaded by Trev SINGH
[2021-11-04 18:34] LABS: Lactic Acid Follow Up (RFLX 1) 5.1 mmol/L (0.7-2.1)
--- NOTE | 2021-11-04 18:46 | PC.NURSE ---
at [address] Macdonald that pt lactic acid was 5.1 (compared to 4.5 at 1345). Dr Macdonald ordered pt to have 1 liter bolus of ns, then resume maintenance fluids as ordered. primary RN notified of new orders.
--- NOTE | 2021-11-04 19:56 | PC.NURSE ---
Upon arrival to the floor, pt had a skin tear noted on LFA from PIV clamp. Dressing applied at site and remains CDI. Pt's bottom was reddened, pressure relieving dressing applied to coccyx. PICC line dressing in EMIL was changed via sterile technique per Coretta Alicia RN. Pt's heels had no open areas, d/t fragile skin and being bedbound at this time, heel protectors applied for skin integrity. Pt was given oral care and turned to her right side w/ pillow. Nursing staff has been told pt needs to be a q2h turn and oral care. No other acute changes or complaints.
[2021-11-04 20:21] LABS: Reflex Lactic (2 hrs) Add Lactic Reflex
[2021-11-04 21:42] LABS: Lactic Acid Follow up (RFLX 2) 4.8 mmol/L (0.7-2.1)
[2021-11-05] VITALS (32 sets, daily range): BP systolic 76–123; BP diastolic 29–73; PULSE 84–127; RESP 16–24; TEMP 35.9–36.6; O2SAT 86–99; BMI 23.0; BMI 23.1
[2021-11-05 05:40] LABS: MANUAL DIFFERENTIAL MANUAL DIFFERENTIAL (MANUAL DIFF)
[2021-11-05 05:43] LABS: Basophils % 0.2 % (0.1-2.0); Eosinophils % 0.1 % (0.1-12.0); Hematocrit 32.4 % (37.0-47.0); Lymphocytes # 0.3 K/mm3 (0.7-4.5); Lymphocytes % 4.5 % (10-50); Mean Corpuscular HGB Conc 32.6 g/dL (31.8-35.4); Mean Corpuscular Hemoglobin 31.8 pg (27.0-31.2); Mean Corpuscular Volume 97.8 fl (81-99); Mean Platelet Volume 12.5 fl (7.4-10.4); Monocytes # 0.4 K/mm3 (0.1-1.0); Monocytes % 6.5 % (1.7-9.3); Neutrophils % 88.7 % (37.0-80.0); Red Blood Count 3.32 M/mm3 (4.20-5.40); White Blood Count 5.6 K/mm3 (4.8-10.8)
[2021-11-05 05:44] LABS: Chloride 118 mmol/L (98-107); Sodium 141 mmol/L (136-145)
[2021-11-05 05:47] LABS: Blood Urea Nitrogen 66 mg/dl (7-17); Carbon Dioxide 18 mmol/L (22.0-30.0); Creatinine Clearance Estimated 35 mL/min (50-200); Estimated Glomerular Filt Rate 37 ml/min (>60); GFR (African American) 45 ML/MIN (>60); Phosphorous 3.3 mg/dl (2.5-4.5)
[2021-11-05 05:48] LABS: Calcium 7.2 mg/dl (8.4-10.2); Glucose 73 mg/dl (74-100)
[2021-11-05 06:49] LABS: Platelet Count 48 K/mm3 (142-424)
[2021-11-05 06:50] LABS: Hemoglobin 10.6 g/dL (12.2-16.2)
--- NOTE | 2021-11-05 07:21 | HMH.PHAVTE ---
[facility] Pharmacy VTE Monitoring - Patient Demographics Admission date: 11/05/21 Report Date: 11/05/21 Time: 07:21 Allergies/Adverse Reactions: Patient Allergies codeine [CODEINE] Allergy (Intermediate, Verified 07/30/21 16:31) I-RASH Penicillins [PENICILLINS] Allergy (Intermediate, Verified 07/30/21 16:31) I-RASH Sulfa (Sulfonamide Antibiotics) [SULFA (SULFONAMIDE ANTIBIOTICS)] Allergy (Mild, Verified 07/30/21 16:31) NA-NAUSEA/VOMITING Height: 1.65 m Weight: 62.766 kg Patient Problems: Current Active Problems COPD (chronic obstructive pulmonary disease) (Chronic) GERD (gastroesophageal reflux disease) (Chronic) TOVAR (nonalcoholic steatohepatitis) (Chronic) COVID-19 (Acute) Pneumonia (Acute) Hypotension (Acute) Respiratory distress (Acute) UTI (urinary tract infection) (Acute) Sepsis (Acute) - VTE Risk Labs: VTE Related Lab Results Hgb 10.6 g/dL (12.2-16.2) L D 11/05/21 05:22 Hct 32.4 % (37.0-47.0) L 11/05/21 05:22 Plt Count 48 K/mm3 (142-424) L* 11/05/21 05:22 BUN 66 mg/dl (7-17) H 11/05/21 05:22 Creatinine 1.40 mg/dl (0.52-1.04) H 11/05/21 05:22 Estimated Creat Clear 35 mL/min (50-200) 11/05/21 05:22 Was VTE Risk Assessment Performed: Yes VTE Score: 7 VTE Risk Level: Moderate Risk Clinical Trial Participant: No - Prophylaxis VTE Prophylaxis Ordered?: Yes Types of VTE Prophylaxis: TEDS Knee High Location of Applied Device: Bilateral Lower Extremeties
--- NOTE | 2021-11-05 07:43 | HMH.PHAINT ---
MEDICATION RECONCILIATION COMPLETED ON PATIENT USING MAR FROM [facility]. -MICHAEL IZAGUIRRE, MICHELLED
--- NOTE | 2021-11-05 08:02 | HMH.ACPN2 ---
<Cayla Bragg - Last Filed: 11/05/21 08:02> Internal Medicine - PN: Subj *Date: 11/05/21 *Time: 08:02 Interval history: Patient is nonverbal this morning. Nursing states she has continue with restless movements. Blood pressure has been low and they were considering initiating Levophed drip. She has been moved to stepdown. She is continued with wheezing. Laboratory data this morning shows sodium of 141 and potassium of 4; BUN is 66 and creatinine is 1.4. Lactate remains elevated at 4.8. CBC shows a white blood cell count of 5600 and a hemoglobin of 10.6 hematocrit of 32.4. Platelet count is low at 48,000. Cultures are pending. Exam Vital signs and Labs for Last 24 Hours: Temp Pulse Resp BP Pulse Ox 97.1 F L 95 H 20 88/45 L 95 11/05/21 03:31 11/05/21 06:30 11/05/21 03:31 11/05/21 03:31 11/05/21 06:30 Laboratory Results - last 24 hr 11/04/21 12:30: WBC 5.7, RBC 3.77 L, Hgb 12.1 L, Hct 36.9 L, MCV 98.0, MCH 32.0 H, MCHC 32.6, RDW 16.8, Plt Count 50 L, MPV 12.6 H, Neut % (Auto) 89.2 H, Lymph % (Auto) 5.5 L, [place] % (Auto) 4.7, Eos % (Auto) 0.0 L, Baso % (Auto) 0.6, Neut # (Auto) 5.1, Lymph # (Auto) 0.3 L, [place] # (Auto) 0.3, Eos # (Auto) 0.0, Baso # (Auto) 0.0, Total Counted 100, Neutrophils % (Manual) 88 H, Lymphocytes % (Manual) 6 L, Monocytes % (Manual) 5, Eosinophils % (Manual) 1, Platelet Estimate Marked decrease, RBC Morphology Normal 11/04/21 12:30: Sodium 141, Potassium 4.0, Chloride 113 H, Carbon Dioxide 21 L, Anion Gap 11.0, BUN 69 H, Creatinine 1.50 H, Estimated Creat Clear 34, Estimated GFR 34 L, Est GFR ( Amer) 41 L, Glucose 72 L, Calcium 8.1 L, Total Bilirubin 4.1 H, AST 84 H, ALT 50, Alkaline Phosphatase 136 H, Troponin I 0.04 H, Total Protein 5.0 L, Albumin 2.0 L, Globulin 3.0, Albumin/Globulin Ratio 0.7 L 11/04/21 12:37: POC Glucose 76 11/04/21 12:54: Urine Color Brown, Urine Appearance Turbid, Urine pH 5.5, Ur Specific [place] >= 1.030, Urine Protein 2+, Urine Glucose (UA) Negative, Urine Ketones Trace, Urine Blood 3+, Urine Nitrate Positive, Urine Bilirubin 2+ A, Urine Urobilinogen 2.0, Ur Leukocyte Esterase 2+ A, Urine RBC 10-20, Urine WBC 20-50, Ur Squamous Epith Cells Occasional, Urine Bacteria 4+ 11/04/21 13:02: Specimen Source Left radial, O2 % 2.5, ABG pH 7.41, ABG pCO2 31.1 L, ABG pO2 70.8 L, ABG HCO3 19.1 L, ABG Total CO2 20.0 L, ABG O2 Saturation 93, ABG Base Excess -5.6 L, Ricco Test Acceptable, Vent Rate 0, Tidal Volume 0, PEEP 0 11/04/21 13:05: SARS-CoV-2 (PCR) Detected A, Influenza A Untype (PCR) Not detected, Influenza Type B (PCR) Not detected 11/04/21 13:45: Lactate 4.5 H 11/04/21 18:16: Lactate 5.1 H 11/04/21 21:02: Lactate 4.8 H 11/05/21 05:22: WBC 5.6, RBC 3.32 L, Hgb 10.6 L D, Hct 32.4 L, MCV 97.8, MCH 31.8 H, MCHC 32.6, RDW 17.0, Plt Count 48 L*, MPV 12.5 H, Neut % (Auto) 88.7 H, Lymph % (Auto) 4.5 L, [place] % (Auto) 6.5, Eos % (Auto) 0.1, Baso % (Auto) 0.2, Neut # (Auto) 5.0, Lymph # (Auto) 0.3 L, [place] # (Auto) 0.4, Eos # (Auto) 0.0, Baso # (Auto) 0.0 11/05/21 05:22: Sodium 141, Potassium 4.0, Chloride 118 H, Carbon Dioxide 18 L, Anion Gap 9.0, BUN 66 H, Creatinine 1.40 H, Estimated Creat Clear 35, Estimated GFR 37 L, Est GFR ( Amer) 45 L, Glucose 73 L, Calcium 7.2 L 11/05/21 05:22: Phosphorus 3.3, Magnesium 2.0 I & O for Last 24 hours: Intake & Output 11/02/21 11/03/21 11/04/21 11/05/21 11:59 11:59 11:59 11:59 Output Total 225 / 225 Balance -225 / -225 Weight 138 lb 6 oz - Constitutional mild distress Comments: Did focus on my voice briefly. Nonverbal. - *Routine Respiratory Exam Present: wheezes, crackles (Bilateral wheezes and crackles greater on the right.) - *Routine Cardiovascular Exam Present: RRR, murmur, tachycardia - *Routine Abdominal Exam Present: soft, normoactive bowel sounds. Absent: tenderness - *Routine Extremities Exam Present: edema (Bilateral lower extremities. This is improved.) - *Routine Neurological Exam Absent: frantz
[2021-11-05 08:30] LABS: Lymphocytes % 4 % (10-50); Monocytes % 2 % (2-9); Neutrophils % 94 % (42-76); Total Cells Counted 100
[2021-11-05 08:33] LABS: Anisocytosis 1+; Platelet Estimate Normal
[2021-11-05 08:58] LABS: Ammonia 28 umol/L (9-30)
--- NOTE | 2021-11-05 09:22 | HMH.PULMCON ---
*Admission Date: 11/05/21 *Reason for consult:: COVID-19 pneumonia *History of present illness: Patient altered, lethargic, unable to engage in conversation to obtain any history. Much of the history is obtained from chart review. Ms. Landeros is a 71-year-old female history of hypertension, asthma COPD, Trejo cirrhosis, prior history of ischemic stroke was found to be in respiratory distress along with altered mentation and was presented to the ER found to be hypoxic needing oxygen supplementation pulmonary was called for further management. [facility] History Medical History: Reports:: Anxiety, Asthma, Congestive Heart Failure, Chronic Obstructive Pulmonary Disease (COPD), Depression, Gastroesophageal Reflux Disease(GERD), Hyperlipidemia, Hypertension, Renal Insufficiency, Urinary Tract Infection Denies:: Cancer, Diabetes Mellitus Type 1, Diabetes Mellitus Type 2, Internal Pacemaker, MRSA, Seizures *Have you ever received a pneumonia vaccine?: Yes *Have you received a flu vaccine this season?: Yes Other Medical History: Reports: Arthritis, Cataracts, Liver Disease (Trejo and esophageal varices) Laterality Cases: Bilateral: Arthroscopy Shoulder, Carpal Tunnel Release, Total Hip Replacement Other Surgeries: Yes: Tubal Ligation, Other (left hip). No: Pacemaker Amputation: No Fractures: No - *Social History Smoking Status: Current every day smoker Tobacco Type: cigarettes # Packs/Day (cigarettes): 1 Alcohol Intake: never Substance Use Type: denies use *Occupational Status:: disabled Housing: alf Household Members: other *Travel in the last 8 weeks: None - Psychiatric History Pschychiatric History:: Reports:: Anxiety, Depression Family Hx:: Unable to obtain ROS - Review of Systems Review of systems:: unable to obtain Patient lethargic and unable to engage in meaningful conversation Meds Home Medications Medication Instructions Recorded Confirmed Type Citalopram Hydrobromide 40 mg PO DAILY 10/12/21 11/04/21 History [Citalopram 40mg Tablet] Esomeprazole Magnesium 40 mg PO DAILY 10/12/21 11/04/21 History Oxybutynin Chloride [Oxybutynin 10 mg PO DAILY 10/12/21 11/04/21 History Chloride ER] Albuterol Sulfate [Albuterol 2 puffs IH Q4HP PRN 10/13/21 11/05/21 History Sulfate Hfa] Docusate Sodium 100 mg PO BID 10/13/21 11/04/21 History Trazodone HCl 50 mg PO HS 10/13/21 11/04/21 History Levofloxacin/D5w [Levaquin 500 mg IV Q48H ml 10/17/21 11/04/21 Rx 500mg/100mL Premix IVPB] Acetaminophen [Acetaminophen 325mg 650 mg PO Q4HP PRN 11/04/21 11/04/21 History tab] Ascorbic Acid 500 mg PO DAILY 11/04/21 11/04/21 History Cholecalciferol (Vitamin D3) 25 mcg PO DAILY 11/04/21 11/04/21 History [Vitamin D3] Zinc Sulfate [Zinc-220] 50 mg PO DAILY 11/04/21 11/04/21 History Spironolactone [Spironolactone 25 mg PO DAILY 11/05/21 11/05/21 History 25mg Tablet] Allergies Allergy/AdvReac Type Severity Reaction Status Date / Time codeine [CODEINE] Allergy Intermediate I-RASH Verified 07/30/21 16:31 Penicillins [PENICILLINS] Allergy Intermediate I-RASH Verified 07/30/21 16:31 Sulfa (Sulfonamide Allergy Mild NA-NAUSEA/V Verified 07/30/21 16:31 Antibiotics) OMITING [SULFA (SULFONAMIDE ANTIBIOTICS)] Exam - Constitutional Constitutional:: Absent: no acute distress, comfortable - HENMT Exam HENMT: Present: normocephalic - Eye Exam Eyes:: Present: normal appearance both eyes and related structures - Neck Exam Neck:: Present: normal visual inspection - Respiratory Exam Respiratory:: Present: no respiratory distress, wheezing - Cardiovascular Exam Cardiac:: Present: S1, S2 - GI Exam GI:: Present: soft - Neurological Exam Neurological: Present: alert - Extremities Exam Extremities: Present: no cyanosis, no clubbing, edema Internal Medicine - CN: Reslt - Labs CBC & Chem 7: 11/05/21 05:22 11/05/21 05:22 Labs: Short CBC 11/04/21 11/05/21 Range/Units 12:30 05
--- NOTE | 2021-11-05 09:31 | CA_ITS ---
APPROVED REPORT EXAM: Comprehensive 2D, Doppler, and color-flow Echocardiogram Lifter Driver: Zaria Franklin CRT Ht: 5 ft 4 in Wt: 138lbs BSA: 1.67 BP: 80/56 mmHg Indications: Covid +, AMS, Septic, copd, limited echo due to uncooperative pt, pt has poor u/s windows. M-Mode Dimensions RVDd 1.66 cm (0.9-2.6) LVDd 3.57 cm (3.5-5.7) LVDs 2.07 cm (3.5-5.7) IVSd 0.78 cm (0.6-1.1) PWd 0.75 cm (0.6-1.1) EF (Teich) 73.90% FS 42.00% EDV (Teich) 53.30 mL ESV (Teich) 13.90 mL Conclusion 1. Technically difficult and poor study because of the patient factors and poor acoustic windows. The valvular structure endocardial surfaces are very poorly visualized. 2. Probably preserved left ventricular systolic function. 3. Repeat study when patient is cooperative and noncombative. If clinically indicated. Electronically signed by : Tony Stone MD 11/05/2021 20:59:45
--- NOTE | 2021-11-05 09:48 | SW/DCPLANNER ---
This patient currently resides at [facility]. Jennifer leal/ [facility] confirmed that patient is SNF level of care. I will continue to follow up with Jennifer until patient is medically stable for discharge. Discharge date is unknown at this time.
--- NOTE | 2021-11-05 09:55 | HMH.CNCARD ---
History of Present Illness Consult date: 11/05/21 Requesting physician: Presley Peña Consult reason: atrial fibrillation Chief complaint: COVID/Resp Distress, AMS, New onset A. fib with RVR, Hypotension Additional Medical History:: 1. Hypertension 2. Hyperlipidemia 3. COPD/asthma 4. History of congestive heart failure 5. History of recent Covid infection 6. Altered mental status 7. New onset atrial fibrillation with RVR, 10/2021 8. TOVAR History of present illness: Ms. Morales is a 71-year-old female with a history of hypertension, GERD, anxiety, degenerative disc disease, asthma, COPD, upper GI bleed in 2013, microvascular ischemic brain disease per MRI in 2014, esophageal varices, and cirrhosis, Tovar who was seen at [facility] for a routine visit and found to be with altered mental status and respiratory distress. She was in constant motion and was unaware of verbal stimulation. She was unable to focus. She was nonverbal. Also noted with chest assessment wheezing and crackles throughout. Respiratory rate was 32 and she was tachycardic. At this point she was sent to [facility] emergency room for further evaluation. Nursing reported that she was able to eat and drink yesterday. She was recently hospitalized at [facility] with bacteremiaand pneumonia. She finished her course of Levaquin this week. She also recently was positive for Covid and came out of isolation yesterday. With evaluation in the emergency room She was found to have pneumonia and felt to be septic. She was given IV fluid boluses and started on vancomycin and cefepime. She was also felt to have a urinary tract infection. She was started on sepsis protocol. Blood chemistries show a BUN of 69 and creatinine of 1.5. Lactate was elevated at 4.5. Liver function studies with an AST of 84, ALT of 50 and alkaline phosphatase of 136. Total bilirubin was 4.1. Troponin I was 0.04. Covid was again noted as being positive. Blood pressure ranged from 87/53 with a high of 90/55. She was afebrile. Heart rate ranged from 120-125. She was thus admitted for ongoing treatment. The above per Dr. Peña. Patient is nonverbal. She is awake but noncommunicative. Cardiology consulted for new onset A. fib. Troponin slightly elevated at 0.04. EKG is poor quality with baseline artifact making interpretation difficult. Patient is on Levophed at this time with blood pressure in the 90 mmHg systolic range but heart rates in the 120 to 130 bpm range. [facility] History Medical History: Reports:: Anxiety, Asthma, Congestive Heart Failure, Chronic Obstructive Pulmonary Disease (COPD), Depression, Gastroesophageal Reflux Disease(GERD), Hyperlipidemia, Hypertension, Renal Insufficiency, Urinary Tract Infection Denies:: Cancer, Diabetes Mellitus Type 1, Diabetes Mellitus Type 2, Internal Pacemaker, MRSA, Seizures *Have you ever received a pneumonia vaccine?: Yes *Have you received a flu vaccine this season?: Yes Other Medical History: Reports: Arthritis, Cataracts, Liver Disease (Tovar and esophageal varices) Laterality Cases: Bilateral: Arthroscopy Shoulder, Carpal Tunnel Release, Total Hip Replacement Other Surgeries: Yes: Tubal Ligation, Other (left hip). No: Pacemaker Amputation: No Fractures: No - *Social History Smoking Status: Current every day smoker Tobacco Type: cigarettes # Packs/Day (cigarettes): 1 Alcohol Intake: never Substance Use Type: denies use *Occupational Status:: disabled Housing: senior care Household Members: other *Travel in the last 8 weeks: None - Psychiatric History Pschychiatric History:: Reports:: Anxiety, Depression Family Hx:: Unable to obtain Meds Home Medications Medication Instructions Recorded Confirmed Type Citalopram Hydrobromide 40 mg PO DAILY 10/12/21 11/04/21 History [Citalopram 40mg Tablet] Esomeprazole Magnesium 40 mg PO DAILY 10/12/21 11/04/21 History Oxybutynin Chloride [Oxybuty
[2021-11-05 10:21] LABS: ABG Base Excess -8.9 mmol/L (-2.4-2.3); ABG HCO3 15.2 mmhg (22.0-26.0); ABG Oxygen Saturation 96 % (90-100); ABG PH 7.44 mmol/L (7.35-7.45); ABG PO2 79.9 mmhg (80-100); ABG TCO2 15.9 mmhg (23-27)
[2021-11-05 10:24] LABS: Allen's Test ACCEPTABLE; Oxygen 2LPM %; Source Right Radial
--- NOTE | 2021-11-05 10:30 | PC.NURSE ---
SBP 70s. Jj gtt initiated @ 40mcg/min, Diltiazem gtt initiated @ 10mg/hr, and 500mL LR bolus initiated.
--- NOTE | 2021-11-05 10:37 | PC.NURSE ---
received notification of the following: pH 7.43, pCO2 23.0, pO2 79.9, HCO3 15.2, and arterial lactic 4.97. Dr. Flood made aware.
--- NOTE | 2021-11-05 10:46 | HMH.PTWOUND ---
Rehab Inpt Wound Evaluation Rehab IP Wound Evaluation Start: 11/04/21 19:54 Freq: ONCE Status: Active Protocol: Document 11/05/21 10:44 JEN (Rec: 11/05/21 10:46 PHOLUIS [id number]) Rehab PT Wound Assessment Subjective Subjective Wound care order rec'd on this 71 yowf due to low Maxwell score < 12, currently nsg is aware and treating appropriately, no need for debridement at thsi time. Plan/Recommendation Comment NSG to continue to monitor, no need for PT involvment at this time. Thank you. PHYSICIAN CERTIFICATION: I certify the specified therapy services for Azalea Landeros are required, authorized, and reviewed every 30 days.
--- NOTE | 2021-11-05 11:02 | HMH.PHACONS ---
- Pharmacy Consult Date: 11/05/21 Time: 11:02 Referring provider: DR. BERRY Reason for Consult:: VANCOMYCIN DOSING CHANGE WITH RENAL FX. Allergies and ADEs:: Allergies Allergy/AdvReac Type Severity Reaction Status Date / Time codeine [CODEINE] Allergy Intermediate I-RASH Verified 07/30/21 16:31 Penicillins [PENICILLINS] Allergy Intermediate I-RASH Verified 07/30/21 16:31 Sulfa (Sulfonamide Allergy Mild NA-NAUSEA/V Verified 07/30/21 16:31 Antibiotics) OMITING [SULFA (SULFONAMIDE ANTIBIOTICS)] Home Medications:: Home Medications Medication Instructions Recorded Confirmed Type Citalopram Hydrobromide 40 mg PO DAILY 10/12/21 11/04/21 History [Citalopram 40mg Tablet] Esomeprazole Magnesium 40 mg PO DAILY 10/12/21 11/04/21 History Oxybutynin Chloride [Oxybutynin 10 mg PO DAILY 10/12/21 11/04/21 History Chloride ER] Albuterol Sulfate [Albuterol 2 puffs IH Q4HP PRN 10/13/21 11/05/21 History Sulfate Hfa] Docusate Sodium 100 mg PO BID 10/13/21 11/04/21 History Trazodone HCl 50 mg PO HS 10/13/21 11/04/21 History Levofloxacin/D5w [Levaquin 500 mg IV Q48H ml 10/17/21 11/04/21 Rx 500mg/100mL Premix IVPB] Acetaminophen [Acetaminophen 325mg 650 mg PO Q4HP PRN 11/04/21 11/04/21 History tab] Ascorbic Acid 500 mg PO DAILY 11/04/21 11/04/21 History Cholecalciferol (Vitamin D3) 25 mcg PO DAILY 11/04/21 11/04/21 History [Vitamin D3] Zinc Sulfate [Zinc-220] 50 mg PO DAILY 11/04/21 11/04/21 History Spironolactone [Spironolactone 25 mg PO DAILY 11/05/21 11/05/21 History 25mg Tablet] Height: 1.65 m Weight: 62.766 kg Laboratory Results:: Laboratory Results - last 24 hr 11/04/21 12:30: WBC 5.7, RBC 3.77 L, Hgb 12.1 L, Hct 36.9 L, MCV 98.0, MCH 32.0 H, MCHC 32.6, RDW 16.8, Plt Count 50 L, MPV 12.6 H, Neut % (Auto) 89.2 H, Lymph % (Auto) 5.5 L, [place] % (Auto) 4.7, Eos % (Auto) 0.0 L, Baso % (Auto) 0.6, Neut # (Auto) 5.1, Lymph # (Auto) 0.3 L, [place] # (Auto) 0.3, Eos # (Auto) 0.0, Baso # (Auto) 0.0, Total Counted 100, Neutrophils % (Manual) 88 H, Lymphocytes % (Manual) 6 L, Monocytes % (Manual) 5, Eosinophils % (Manual) 1, Platelet Estimate Marked decrease, RBC Morphology Normal 11/04/21 12:30: Sodium 141, Potassium 4.0, Chloride 113 H, Carbon Dioxide 21 L, Anion Gap 11.0, BUN 69 H, Creatinine 1.50 H, Estimated Creat Clear 34, Estimated GFR 34 L, Est GFR ( Amer) 41 L, Glucose 72 L, Calcium 8.1 L, Total Bilirubin 4.1 H, AST 84 H, ALT 50, Alkaline Phosphatase 136 H, Troponin I 0.04 H, Total Protein 5.0 L, Albumin 2.0 L, Globulin 3.0, Albumin/Globulin Ratio 0.7 L 11/04/21 12:37: POC Glucose 76 11/04/21 12:54: Urine Color Brown, Urine Appearance Turbid, Urine pH 5.5, Ur Specific [place] >= 1.030, Urine Protein 2+, Urine Glucose (UA) Negative, Urine Ketones Trace, Urine Blood 3+, Urine Nitrate Positive, Urine Bilirubin 2+ A, Urine Urobilinogen 2.0, Ur Leukocyte Esterase 2+ A, Urine RBC 10-20, Urine WBC 20-50, Ur Squamous Epith Cells Occasional, Urine Bacteria 4+ 11/04/21 13:02: Specimen Source Left radial, O2 % 2.5, ABG pH 7.41, ABG pCO2 31.1 L, ABG pO2 70.8 L, ABG HCO3 19.1 L, ABG Total CO2 20.0 L, ABG O2 Saturation 93, ABG Base Excess -5.6 L, Ricco Test Acceptable, Vent Rate 0, Tidal Volume 0, PEEP 0 11/04/21 13:05: SARS-CoV-2 (PCR) Detected A, Influenza A Untype (PCR) Not detected, Influenza Type B (PCR) Not detected 11/04/21 13:45: Lactate 4.5 H 11/04/21 18:16: Lactate 5.1 H 11/04/21 21:02: Lactate 4.8 H 11/05/21 05:22: WBC 5.6, RBC 3.32 L, Hgb 10.6 L D, Hct 32.4 L, MCV 97.8, MCH 31.8 H, MCHC 32.6, RDW 17.0, Plt Count 48 L*, MPV 12.5 H, Neut % (Auto) 88.7 H, Lymph % (Auto) 4.5 L, [place] % (Auto) 6.5, Eos % (Auto) 0.1, Baso % (Auto) 0.2, Neut # (Auto) 5.0, Lymph # (Auto) 0.3 L, [place] # (Auto) 0.4, Eos # (Auto) 0.0, Baso # (Auto) 0.0, Total Counted 100, Neutrophils % (Manual) 94 H, Lymphocytes % (Manual) 4 L, Monocytes % (Manual) 2, Platelet Estimate Normal, RBC Morphology Not Reportable, Anisocytosis 1+
--- NOTE | 2021-11-05 11:35 | PC.NURSE ---
report given to Galina Vallejo RN as she is now assuming care of pt.
--- NOTE | 2021-11-05 13:41 | DIET.NUTRFU ---
Addendum entered by Laurie Martinez RD, LD 11/05/21 16:02: Based on diet at [place] will change current diet, provider aware Original Note: Spoke to Avelina at [facility], patient had poor intake, MSOFT ground with thin liquids. Consulted provider for speech. Facility tried [facility] and she would not drink. Last stay here on 10/17 triggers for significant wt loss of 5.9% in 30 days and 9% in 90 days. Triggers for malnutrition, provider aware. Spoke to nursing today and patient refused breakfast and was not alert enough for lunch. RD consult triggered for low dana score, has reddened area to bottom, still intact but at high risk d/t poor nutritional status and overall decline.
[2021-11-05 14:23] LABS: Reflex Lactic Add Lactic Reflex
--- NOTE | 2021-11-05 14:59 | PC.NURSE ---
upon assessment pt is noted to be lying in bed looking around. pt does not focus on staff when they speak or move about the room. pt movements appear random and not meaningfully being done to achieve something.
--- NOTE | 2021-11-05 15:07 | PC.NURSE ---
critical lab value of Lactic acid 5.[address] Peña's nurse (patti) at this time. [phone]
--- NOTE | 2021-11-05 15:46 | CARE MANAGER ---
I was notified by SAMANTHA Srinivasan on floor that patient was running A-fib with a rate of 130s to 140s. I notified Dr. Peña of this and clarified that patient should be in step down status since [address] Peña, patient orders put in for step down status and cardiology consult. This afternoon, Dr. Peña was notified of patient triggering for malnutrition per dietary, and that patient was on a mechanical soft diet prior to admission. Per Dr. Peña, patient can be switched to mechanical soft. Dietitian notified.
[2021-11-05 16:47] LABS: Reflex Lactic (2 hrs) Add Lactic Reflex
[2021-11-05 18:02] LABS: Lactic Acid Follow up (RFLX 2) 5.3 mmol/L (0.7-2.1)
--- NOTE | 2021-11-05 18:15 | PC.NURSE ---
[address] Knott about critical lactic acid 5.3 (previous 5.0)
[2021-11-06] VITALS (19 sets, daily range): BP systolic 79–118; BP diastolic 41–74; PULSE 100–126; RESP 18–34; TEMP 34.1–36.6; O2SAT 88–100; BMI 22.9
--- NOTE | 2021-11-06 06:18 | ECG_ITS ---
APPROVED REPORT Exam: Resting ECG HR:107 bpm ECG Measurements Heart Rate 107 AXES QRSd 96 QRS -26 QT 391 T 17 QTc 454 Conclusion ATRIAL FLUTTER/TACHYCARDIA WITH RAPID VENTRICULAR RESPONSE LOW QRS VOLTAGE [QRS DEFLECTION < 0.5/1.0 mV IN LIMB/CHEST LEADS] PATTERN CONSISTENT WITH PULMONARY DISEASE SEPTAL MYOCARDIAL INFARCTION , OF INDETERMINATE AGE [40+ ms Q WAVE IN V1/V2] ABNORMAL ECG UNCONFIRMED REPORT Electronically signed by : Price Pedraza MD 11/07/2021 19:44:40
--- NOTE | 2021-11-06 06:30 | ECG_ITS ---
APPROVED REPORT Exam: Resting ECG HR:106 bpm ECG Measurements Heart Rate 106 AXES NJ 265 P 66 QRSd 80 QRS -26 QT 360 T 35 QTc 422 Conclusion Uncertain rhythm with no discernable P wave pattern LEFT ATRIAL ENLARGEMENT [-0.15mV P-WAVE IN V1/V2] LOW QRS VOLTAGE [QRS DEFLECTION < 0.5/1.0 mV IN LIMB/CHEST LEADS] PATTERN CONSISTENT WITH PULMONARY DISEASE SEPTAL MYOCARDIAL INFARCTION , PROBABLY OLD [40+ ms Q WAVE IN V1/V2] ST DEPRESSION, CONSIDER SUBENDOCARDIAL INJURY [0.1+ mV ST DEPRESSION] ABNORMAL ECG UNCONFIRMED REPORT Electronically signed by : Price Pedraza MD 11/07/2021 19:48:45
[2021-11-06 06:35] LABS: MANUAL DIFFERENTIAL MANUAL DIFFERENTIAL (MANUAL DIFF)
[2021-11-06 06:43] LABS: Basophils % 0.4 % (0.1-2.0); Hematocrit 35.3 % (37.0-47.0); Hemoglobin 11.1 g/dL (12.2-16.2); Lymphocytes # 0.3 K/mm3 (0.7-4.5); Lymphocytes % 3.6 % (10-50); Mean Corpuscular HGB Conc 31.4 g/dL (31.8-35.4); Mean Corpuscular Hemoglobin 31.5 pg (27.0-31.2); Mean Corpuscular Volume 100.5 fl (81-99); Mean Platelet Volume 14.5 fl (7.4-10.4); Monocytes # 0.6 K/mm3 (0.1-1.0); Monocytes % 5.8 % (1.7-9.3); Neutrophils # 8.6 K/mm3 (1.8-7.8); Neutrophils % 90.2 % (37.0-80.0); Platelet Count 65 K/mm3 (142-424); Red Blood Count 3.51 M/mm3 (4.20-5.40); Red Cell Distribution Width 17.4 % (11.5-17.5); White Blood Count 9.5 K/mm3 (4.8-10.8)
[2021-11-06 06:52] LABS: Anion Gap 17.6 mEq/L (5-15); Blood Urea Nitrogen 67 mg/dl (7-17); Calcium 7.7 mg/dl (8.4-10.2); Carbon Dioxide 12 mmol/L (22.0-30.0); Chloride 120 mmol/L (98-107); Creatinine Clearance Estimated 29 mL/min (50-200); Estimated Glomerular Filt Rate 29 ml/min (>60); GFR (African American) 36 ML/MIN (>60); Potassium 4.6 mmoL/L (3.5-5.1); Sodium 145 mmol/L (136-145)
[2021-11-06 07:11] LABS: Glucose < 20 mg/dl (74-100)
[2021-11-06 07:51] LABS: POC Glucose,Bedside 157 (70-110)
--- NOTE | 2021-11-06 07:54 | P.PN_ITS ---
Acute Rapid Response Note - Subjective Date Responded: 11/06/21 Time Responded: 07:05 Provider Note: I was called to a rapid response. Patient has been admitted with septic shock, Covid, pneumonia, urinary tract infection. When I arrived she was hypotensive with blood pressure 60/40. Oxygen saturation was appropriate, however respiratory effort was decreased. Patient placed on BiPAP. Stopped Cardizem. Given IV fluids. Initial blood glucose was 24 mg/dL. Patient was given 1 amp of D50. Started on a dextrose infusion at 250 cc/h. Blood pressure and heart rate responded appropriately. She remained persistently tachycardic between 105 and 110 beats minute. Blood pressure increased to 85/50. Patient diamond critically ill. - Objective Findings: Vital Signs - Last 4 Hours Temperature 94.4 F L 11/06/21 00:00 Temperature Source Rectal 11/06/21 00:00 Pulse Rate 103 H 11/06/21 05:50 Respiratory Rate 32 H 11/06/21 04:00 Blood Pressure 97/46 L 11/06/21 04:00 Blood Pressure Mean 63 11/06/21 04:00 Blood Pressure Source Automatic Cuff 11/06/21 04:00 Blood Pressure Position Supine 11/05/21 18:45 02 Sat by Pulse Oximetry 88 L 11/06/21 04:00 Oxygen Delivery Method 11/06/21 05:00 Oxygen Flow Rate (LPM) 4 11/06/21 05:00 Lab Results for Past 12 Hours 11/06/21 07:27: POC Glucose 157 H 11/06/21 05:22: Sodium 145, Potassium 4.6, Chloride 120 H, Carbon Dioxide 12 L, Anion Gap 17.6 H, BUN 67 H, Creatinine 1.70 H D, Estimated Creat Clear 29, Estimated GFR 29 L, Est GFR ( Amer) 36 L, Glucose < 20 L* D, Calcium 7.7 L 11/06/21 05:22: WBC 9.5 D, RBC 3.51 L, Hgb 11.1 L, Hct 35.3 L, MCV 100.5 H, MCH 31.5 H, MCHC 31.4 L, RDW 17.4, Plt Count 65 L D, MPV 14.5 H, Neut % (Auto) 90.2 H, Lymph % (Auto) 3.6 L, [place] % (Auto) 5.8, Eos % (Auto) 0.0 L, Baso % (Auto) 0.4, Neut # (Auto) 8.6 H, Lymph # (Auto) 0.3 L, [place] # (Auto) 0.6, Eos # (Auto) 0.0, Baso # (Auto) 0.0 Rapid Response Exam - General General appearance: lethargic RR Procedures/Assess/Plan - Assessment and plan all Dx Assessment and Plan for all problems:: Discussed the case with Dr. Peña on the phone in real-time. He agreed with plan to continue fluids. Start BiPAP. Restart Levophed. Nursing staff called patient's daughter to inform her of change in condition.
[2021-11-06 08:26] LABS: Lymphocytes % 3 % (10-50); Monocytes % 6 % (2-9); Neutrophils % 91 % (42-76); Nucleated Red Blood Cells 4; Total Cells Counted 100
[2021-11-06 08:29] LABS: ABG HCO3 11.9 mmhg (22.0-26.0); ABG PCO2 50.2 mmhg (35.0-45.0); ABG PH 6.99 mmol/L (7.35-7.45); ABG PO2 64.5 mmhg (80-100); ABG TCO2 13.4 mmhg (23-27)
[2021-11-06 08:30] LABS: Macrocytosis 1+
[2021-11-06 08:30] LABS: ABG Base Excess -19.5 mmol/L (-2.4-2.3); ABG Oxygen Saturation 81 % (90-100); Allen's Test ACCEPTABLE; Oxygen NRB %; Source R RADIAL
[2021-11-06 08:32] LABS: Anisocytosis 1+; Hypochromasia 1+; Platelet Estimate Moderate Decrease
--- NOTE | 2021-11-06 08:44 | HMH.ACPN2 ---
<Audra Vang - Last Filed: 11/06/21 08:44> Internal Medicine - PN: Subj *Date: 11/06/21 *Time: 08:44 Interval history: A rapid response was called on the patient overnight. She was hypotensive and her respiratory effort was decreased. She was seen by the ER physician and placed on BiPAP. Her Cardizem was stopped and she was given IV fluids. Her initial blood glucose was 24 and she was given an amp of D50 and started on a dextrose infusion. She has remained tachycardic and hypotensive. She was restarted on Levophed and her family was contacted and are now here with her this morning. Exam Vital signs and Labs for Last 24 Hours: Temp Pulse Resp BP Pulse Ox 94.4 F L 103 H 32 H 97/46 L 88 L 11/06/21 00:00 11/06/21 05:50 11/06/21 04:00 11/06/21 04:00 11/06/21 04:00 Laboratory Results - last 24 hr 11/05/21 08:20: Ammonia 28 11/05/21 10:19: Specimen Source Right radial, O2 % 2lpm, Ricco Test Acceptable 11/05/21 14:45: Lactate 5.0 H 11/05/21 17:35: Lactate 5.3 H 11/06/21 05:22: WBC 9.5 D, RBC 3.51 L, Hgb 11.1 L, Hct 35.3 L, MCV 100.5 H, MCH 31.5 H, MCHC 31.4 L, RDW 17.4, Plt Count 65 L D, MPV 14.5 H, Neut % (Auto) 90.2 H, Lymph % (Auto) 3.6 L, Carson % (Auto) 5.8, Eos % (Auto) 0.0 L, Baso % (Auto) 0.4, Neut # (Auto) 8.6 H, Lymph # (Auto) 0.3 L, Carson # (Auto) 0.6, Eos # (Auto) 0.0, Baso # (Auto) 0.0, Total Counted 100, Neutrophils % (Manual) 91 H, Lymphocytes % (Manual) 3 L, Monocytes % (Manual) 6, Nucleated RBCs 4, Platelet Estimate Moderate decrease, Hypochromasia 1+, Anisocytosis 1+, Macrocytosis 1+ 11/06/21 05:22: Sodium 145, Potassium 4.6, Chloride 120 H, Carbon Dioxide 12 L, Anion Gap 17.6 H, BUN 67 H, Creatinine 1.70 H D, Estimated Creat Clear 29, Estimated GFR 29 L, Est GFR ( Amer) 36 L, Glucose < 20 L* D, Calcium 7.7 L 11/06/21 07:16: Specimen Source R radial, O2 % Nrb, ABG pH 6.99 L*, ABG pCO2 50.2 H, ABG pO2 64.5 L, ABG HCO3 11.9 L, ABG Total CO2 13.4 L, ABG O2 Saturation 81 L*, ABG Base Excess -19.5 L, Ricco Test Acceptable 11/06/21 07:27: POC Glucose 157 H I & O for Last 24 hours: Intake & Output 11/03/21 11/04/21 11/05/21 11/06/21 11:59 11:59 11:59 11:59 Intake Total 1768 / 1768 1813 / 1813 Output Total 225 / 225 350 / 350 Balance 1543 / 1543 1463 / 1463 Weight 138 lb 14.259 oz 137 lb 14 oz Microbiology Reports for the Last 24 Hours: Microbiology 11/04/21 12:54 Urine,Catheterized Urine Culture - Preliminary NO GROWTH AFTER 24 HOURS - Constitutional no acute distress, obtunded - *Routine Respiratory Exam Present: decreased breath sounds - *Routine Cardiovascular Exam Present: irregular rhythm - *Routine Abdominal Exam Present: soft, normoactive bowel sounds. Absent: tenderness - *Routine Extremities Exam Present: edema (Edema of the upper and lower extremities). Absent: cyanosis, clubbing - *Routine Skin Exam Present: warm, ecchymosis (Significant ecchymosis and edema of the right upper arm). Absent: rash - *Routine Neurological Exam Present: altered mental status Assessment and Plan (1) Pneumonia Status: Acute Qualifiers: Pneumonia type: due to unspecified organism Laterality: bilateral Lung location: unspecified part of lung Qualified Code(s): J18.9 - Pneumonia, unspecified organism Category: Medical Code(s): J18.9 - Pneumonia, unspecified organism (2) Altered mental status Status: Acute Category: Medical Code(s): R41.82 - Altered mental status, unspecified (3) COVID-19 Status: Acute Category: Medical Code(s): U07.1 - COVID-19 (4) Hypotension Status: Acute Category: Medical Code(s): I95.9 - Hypotension, unspecified (5) Respiratory distress Status: Acute Category: Medical Code(s): R06.03 - Acute respiratory distress (6) Sepsis Status: Acute Category: Medical Code(s): A41.9 - Sepsis, unspecified organism (7) UTI (urinary tract infection) Status: Acute Qualifi
[2021-11-06 08:47] LABS: ABG Base Excess -18.1 mmol/L (-2.4-2.3); ABG HCO3 10.1 mmhg (22.0-26.0); ABG Oxygen Saturation 88 % (90-100); ABG PCO2 27.4 mmhg (35.0-45.0); ABG PO2 59.1 mmhg (80-100)
[2021-11-06 08:50] LABS: Oxygen 100 %
[2021-11-06 08:51] LABS: Pressure Support 10; Source Right Radial; Vent Rate 20
[2021-11-06 08:52] LABS: Allen's Test Acceptable; Tidal Volume BIPAP
[2021-11-06 08:53] LABS: ABG PH 7.19 mmol/L (7.35-7.45); Lactate Arterial 7.9 mmol/L (0.4-2.0)
--- NOTE | 2021-11-06 09:30 | PC.NURSE ---
0000 rectal temp at this time 94.4, antonio hugger placed on patient at this time
--- NOTE | 2021-11-06 09:40 | PC.NURSE ---
0437 daughter, Guillermina was called to verify code status, Guillermina stated she would talk to her brother and call back with their decision
--- NOTE | 2021-11-06 09:41 | PC.NURSE ---
0444 patient's daughter Guillermina called back at this time and stated that after talking with her brother they wanted patient to remain a full code at this time
--- NOTE | 2021-11-06 09:49 | PC.NURSE ---
0703 rapid red called at this time 0703 FSBS 24 0711 D50 in at this time 0714 cardizem ordered to be stopped at this time 0716 bipap ordered 0716 BP 57/32 0717 FSBS 26 0718 amp of D50 in at this time 0719 BP 51/30 0720 Jj at 200, levo at 30 0720 D10 ordred at run at 250 mL/hr 0727 FSBS 157 0728 BP 95/51
--- NOTE | 2021-11-06 10:13 | PC.NURSE ---
Jj given at 0400 was verified with SAMANTHA Velasquez and the next dose was verified with Eva RN. Two doses would not scan and would not allow an unscheduled administration
--- NOTE | 2021-11-06 10:45 | PC.NURSE ---
RESP CARE NOTE: Pt FIO2 decreased to 60%, SPO2 at 99%. Will continue to monitor.
--- NOTE | 2021-11-06 10:45 | HMH.PNCARD ---
Subjective Date: 11/06/21 Time: 10:46 Principal diagnosis: Sepsis, Respiratory failure, A. fib, Hypotension Interval history: 71-year-old white female with sepsis and respiratory failure underwent rapid response treatment earlier this a.m. for hypotension. She is on BiPAP therapy. She is now on both Levophed and Jj-Synephrine at max doses. Cardizem which was started for A. fib with RVR has now been discontinued. Heart rate is in the 120s and is still atrial fibrillation. Exam Vital signs and Labs for Last 24 Hours: Temp Pulse Resp BP Pulse Ox 96.1 F L 103 H 32 H 97/46 L 88 L 11/06/21 06:00 11/06/21 05:50 11/06/21 04:00 11/06/21 04:00 11/06/21 04:00 Laboratory Results - last 24 hr 11/05/21 14:45: Lactate 5.0 H 11/05/21 17:35: Lactate 5.3 H 11/06/21 05:22: WBC 9.5 D, RBC 3.51 L, Hgb 11.1 L, Hct 35.3 L, MCV 100.5 H, MCH 31.5 H, MCHC 31.4 L, RDW 17.4, Plt Count 65 L D, MPV 14.5 H, Neut % (Auto) 90.2 H, Lymph % (Auto) 3.6 L, Chester % (Auto) 5.8, Eos % (Auto) 0.0 L, Baso % (Auto) 0.4, Neut # (Auto) 8.6 H, Lymph # (Auto) 0.3 L, Chester # (Auto) 0.6, Eos # (Auto) 0.0, Baso # (Auto) 0.0, Total Counted 100, Neutrophils % (Manual) 91 H, Lymphocytes % (Manual) 3 L, Monocytes % (Manual) 6, Nucleated RBCs 4, Platelet Estimate Moderate decrease, Hypochromasia 1+, Anisocytosis 1+, Macrocytosis 1+ 11/06/21 05:22: Sodium 145, Potassium 4.6, Chloride 120 H, Carbon Dioxide 12 L, Anion Gap 17.6 H, BUN 67 H, Creatinine 1.70 H D, Estimated Creat Clear 29, Estimated GFR 29 L, Est GFR ( Amer) 36 L, Glucose < 20 L* D, Calcium 7.7 L 11/06/21 07:16: Specimen Source R radial, O2 % Nrb, ABG pH 6.99 L*, ABG pCO2 50.2 H, ABG pO2 64.5 L, ABG HCO3 11.9 L, ABG Total CO2 13.4 L, ABG O2 Saturation 81 L*, ABG Base Excess -19.5 L, Ricco Test Acceptable 11/06/21 07:27: POC Glucose 157 H 11/06/21 08:33: Specimen Source Right radial, O2 % 100, ABG pH 7.19 L*, ABG pCO2 27.4 L, ABG pO2 59.1 L, ABG HCO3 10.1 L, ABG Total CO2 11.0 L, ABG O2 Saturation 88 L, ABG Base Excess -18.1 L, Ricco Test Acceptable, ABG Lactate 7.9 H, Vent Rate 20, Tidal Volume Bipap I & O for Last 24 hours: Intake & Output 11/03/21 11/04/21 11/05/21 11/06/21 11:59 11:59 11:59 11:59 Intake Total 1768 / 1768 1813 / 1813 Output Total 225 / 225 350 / 350 Balance 1543 / 1543 1463 / 1463 Weight 138 lb 14.259 oz 137 lb 14 oz Microbiology Reports for the Last 24 Hours: Microbiology 11/04/21 12:54 Urine,Catheterized Urine Culture - Preliminary NO GROWTH AFTER 24 HOURS - *Routine Respiratory Exam Present: rhonchi, wheezes, diminished air movement - *Routine Cardiovascular Exam Present: tachycardia, irregularly irregular Progress Note: A&P (1) Pneumonia Status: Acute (2) Altered mental status Status: Acute (3) COVID-19 Status: Acute (4) Hypotension Status: Acute (5) Respiratory distress Status: Acute (6) Sepsis Status: Acute (7) UTI (urinary tract infection) Status: Acute (8) COPD (chronic obstructive pulmonary disease) Status: Chronic (9) GERD (gastroesophageal reflux disease) Status: Chronic (10) TOVAR (nonalcoholic steatohepatitis) Status: Chronic (11) Acidosis Status: Acute (12) Hypoglycemia Status: Acute Assessment and Plan for All Diagnoses:: 1. Atrial fibrillation with rapid ventricular response. Unable to add additional rate control medication beyond digoxin due to hypotension requiring max doses of Levophed and Jj-Synephrine. This is related to the patient's underlying respiratory issues and sepsis. 2. COVID-19, pneumonia, sepsis, hypotension-currently on IV steroids, cefepime and vancomycin per pulmonology 3. History of altered mental status 4. History of Tovar 5. Anemia 6. Thrombocytopenia Poor prognosis.
--- NOTE | 2021-11-06 11:41 | HMH.PULMPN ---
Internal Medicine - PN: Subj *Date: 11/06/21 *Time: 11:41 Interval history: Continued worsening clinical status. Worsening shock with increasing pressor requirements. Patient still altered. Exam - Constitutional Constitutional:: Absent: no acute distress, comfortable - HENMT Exam HENMT: Present: normocephalic - Eye Exam Eyes:: Present: normal appearance both eyes and related structures - Neck Exam Neck:: Present: normal visual inspection - Respiratory Exam Respiratory:: Present: respiratory distress, crackles, rhonchi - Cardiovascular Exam Cardiac:: Present: S1, S2 - GI Exam GI:: Present: soft - Skin Exam Skin: Present: warm - Neurological Exam Neurological: Absent: alert, awake, normal cognition - Extremities Exam Extremities: Present: no cyanosis, no clubbing, edema Assessment and Plan (1) Pneumonia Status: Acute Qualifiers: Pneumonia type: due to unspecified organism Laterality: bilateral Lung location: unspecified part of lung Qualified Code(s): J18.9 - Pneumonia, unspecified organism Category: Medical Code(s): J18.9 - Pneumonia, unspecified organism (2) Altered mental status Status: Acute Category: Medical Code(s): R41.82 - Altered mental status, unspecified (3) COVID-19 Status: Acute Category: Medical Code(s): U07.1 - COVID-19 (4) Hypotension Status: Acute Category: Medical Code(s): I95.9 - Hypotension, unspecified (5) Respiratory distress Status: Acute Category: Medical Code(s): R06.03 - Acute respiratory distress (6) Sepsis Status: Acute Category: Medical Code(s): A41.9 - Sepsis, unspecified organism (7) UTI (urinary tract infection) Status: Acute Qualifiers: Urinary tract infection type: acute pyelonephritis Qualified Code(s): N10 - Acute pyelonephritis Category: Medical Code(s): N39.0 - Urinary tract infection, site not specified (8) COPD (chronic obstructive pulmonary disease) Status: Chronic Qualifiers: COPD type: unspecified COPD Qualified Code(s): J44.9 - Chronic obstructive pulmonary disease, unspecified Category: Medical Code(s): J44.9 - Chronic obstructive pulmonary disease, unspecified (9) GERD (gastroesophageal reflux disease) Status: Chronic Category: Medical Code(s): K21.9 - Gastro-esophageal reflux disease without esophagitis (10) TOVAR (nonalcoholic steatohepatitis) Status: Chronic Category: Medical Code(s): K75.81 - Nonalcoholic steatohepatitis (TOVAR) (11) Acidosis Status: Acute Category: Medical Code(s): E87.2 - Acidosis (12) Hypoglycemia Status: Acute Category: Medical Code(s): E16.2 - Hypoglycemia, unspecified - Assessment and plan all Dx Assessment and Plan for all problems:: #History of COVID-19 pneumonia: #Acute on chronic hypoxic respiratory failure: #Shock: Ms. Landeros is a 71-year-old female history of chronic hypoxic respiratory failure on 2 L nasal cannula at the long term, hypertension, asthma COPD, Tovar cirrhosis, prior history of ischemic stroke was found to be in respiratory distress along with altered mentation and was presented to the ER found to be hypoxic needing oxygen supplementation pulmonary was called for further management. No evidence of leukocytosis. Lymphopenia noted. Neutrophilia noted. Elevated BUN/creatinine, KARINA or KARINA on CKD. Lactate elevated at 4.[address] admission no pulmonary embolism, showed bilateral diffuse patchy airspace disease. No prior CTs available for comparison, x-ray from earlier from this month and compared with x-ray from yesterday showed diffuse worsening airspace disease especially on the right side. Patient was initiated on vancomycin and cefepime on admission. Blood cultures pending. Patient has a recent blood culture from 10/12/2021 that grew Klebsiella, pansensitive. She have received levofloxacin on this admission and was discharged to [facility] with IV levoflaxacin. Patient
--- NOTE | 2021-11-06 12:34 | DIET.NUTRFU ---
RD spoke to test case developer and patient is in critical condition and family is at bedside. Was made DNR. IVF in place for hydration, not eating.
[2021-11-06 12:51] LABS: Reflex Lactic Add Lactic Reflex
[2021-11-06 13:16] LABS: ABG Base Excess -20.7 mmol/L (-2.4-2.3); ABG HCO3 7.7 mmhg (22.0-26.0); ABG Oxygen Saturation 95 % (90-100); ABG PCO2 21.1 mmhg (35.0-45.0); ABG PO2 85.5 mmhg (80-100); ABG TCO2 8.3 mmhg (23-27)
[2021-11-06 13:19] LABS: Allen's Test Patient Unable; Oxygen 60% %; PEEP 18/8; Source Right Radial; Vent Rate 20
[2021-11-06 13:20] LABS: ABG PH 7.18 mmol/L (7.35-7.45); Lactate Arterial 8.8 mmol/L (0.4-2.0)
[2021-11-06 13:47] LABS: Lactic Acid Follow Up (RFLX 1) 9.3 mmol/L (0.7-2.1)
--- NOTE | 2021-11-06 14:05 | CA_ITS ---
FINAL REPORT TECHNIQUE: Right upper extremity venous duplex was performed with augmentation and compression. CLINICAL HISTORY: EDEMA WITH DRAINAGE,COVID +,BEST EXAM POSSIBLE IV UPPER RT ARM/SHOULDER AREA,DRESSING MID FOREARM FINDINGS: Proper flow is seen throughout the deep venous system. There is no evidence of deep venous thrombosis. IMPRESSION: No deep venous thrombosis in the right upper extremity. Reviewed, Interpreted and Dictated by Shayan Mccormick MD Transcribed by Laura Phelps Authenticated by Shayan Mccormick MD on 11/06/2021 03:24:36 PM [facility]
[2021-11-06 15:24] LABS: Reflex Lactic (2 hrs) Add Lactic Reflex
[2021-11-06 17:40] LABS: Lactic Acid Follow up (RFLX 2) 9.4 mmol/L (0.7-2.1); T4 (Thyroxine) 2.1 ug/dl (5.53-11.0)
[2021-11-06 17:54] LABS: Thyroid Stimulating Hormone 2.05 uIU/mL (0.465-4.68)
--- NOTE | 2021-11-06 18:18 | PC.NURSE ---
Family requesting comfort measures only, Dr Peña notified at this time, given order to dc all fluids and drips, removed bipap and place on nasal cannula, start comfort meds. Orders placed and carried out at this time.
[2021-11-06 20:34] LABS: POC Glucose,Bedside 354 (70-110)
[2021-11-06 20:34] LABS: POC Glucose,Bedside 241 (70-110)
--- NOTE | 2021-11-06 22:33 | PC.NURSE ---
1939 Pt HR noted to be asystole. Pt assessed. MD Peña paged at 1941. ER notified @ 1942. MD Samuels at bedside. TOD 1949. LEW called. Pt ruled out for donation at 2002. Case # [id number]. Press Operator Apprentice, Qasim Sunshine. Pt's family requested [facility] in [place], [place]. Phone # [phone]. Post mortem care provided. Pt left at 2241.
--- NOTE | 2021-11-06 22:41 | PC.NURSE ---
body released to home @ this time.
[2021-11-08 08:15] LABS: Triiodothyronine (T3) Total 56 ng/dL (71-180)
--- NOTE | 2021-11-10 21:37 | HMH.DCSUM ---
General - General Admission date:: 11/04/21 Discharge date: 11/06/21 HPI HPI: Ms. Morales is a 71-year-old female with a history of hypertension, GERD, anxiety, degenerative disc disease, asthma, COPD, upper GI bleed in 2013, microvascular ischemic brain disease per MRI in 2014, esophageal varices, and cirrhosis, Trejo who was seen at [facility] for a routine visit and found to be with altered mental status and respiratory distress. She was in constant motion and was unaware of verbal stimulation. She was unable to focus. She was nonverbal. Also noted with chest assessment wheezing and crackles throughout. Respiratory rate was 32 and she was tachycardic. At this point she was sent to [facility] emergency room for further evaluation. Nursing reported that she was able to eat and drink yesterday. She was recently hospitalized at [facility] with bacteremiaand pneumonia. She finished her course of Levaquin this week. She also recently was positive for Covid and came out of isolation yesterday. With evaluation in the emergency room She was found to have pneumonia and felt to be septic. She was given IV fluid boluses and started on vancomycin and cefepime. She was also felt to have a urinary tract infection. She was started on sepsis protocol. Blood chemistries show a BUN of 69 and creatinine of 1.5. Lactate was elevated at 4.5. Liver function studies with an AST of 84, ALT of 50 and alkaline phosphatase of 136. Total bilirubin was 4.1. Troponin I was 0.04. Covid was again noted as being positive. Blood pressure ranged from 87/53 with a high of 90/55. She was afebrile. Heart rate ranged from 120-125. She was thus admitted for ongoing treatment. Hospital Course Hospital Course: Sepsis protocol was initiated and she was started on vancomycin and cefepime. IV fluids were continued and DuoNeb treatments were added. Levophed was added due to hypotension. Her platelet count decreased and her Lovenox was held. Pulmonology was consulted. He recommended continuing her antibiotics and gave her more fluids. She had an echo that was a poor study because of patient factors and poor acoustic windows and it was recommended the study be repeated when she was noncombative and cooperative. She was seen in consultation by cardiology as she went into A. fib with rapid ventricular response. Her Levophed was discontinued and she was started on Jj-Synephrine for blood pressure support and diltiazem for rate control. She was not to be a anticoagulated due to her low platelet level. The ER physician was called to a rapid response on 11/06/2021 as the patient was hypotensive and her respiratory effort was decreased. She was placed on BiPAP and her Cardizem was stopped. She was given IV fluids as well as an amp of D50 as her glucose was 24. She was started on a dextrose infusion and her blood pressure and heart rate responded appropriately. She remained persistently tachycardic and critically ill. She was restarted on Levophed and her family was contacted about her condition. Dr. Peña spoke with her family and they wanted the patient to be a DNR. The patient was maxed on her Levophed and Jj-Synephrine. Cardiology was unable to add additional rate control medication beyond digoxin due to her hypotension requiring max doses of Levophed and Jj-Synephrine. Her renal function worsened and at 1940 on 11/06/2021, the patient went into asystole. The ER was notified and pronounce the patient. Her body was released to the home. Objective Vital signs: Temp Pulse Resp BP Pulse Ox 98 F 126 H 20 98/45 L 98 11/06/21 14:00 11/06/21 16:00 11/06/21 16:00 11/06/21 16:00 11/06/21 16:00 Narrative: - Constitutional moderate distress, chronically ill appearing <Cayla Bragg - 11/04/21 17:54> Comments: Restless; no purposeful response. <Cayla Bragg - 11/04/21 17:54>
== END 2021-11-06 22:41 | disposition expired | DRG 871 ==
LOC: ER 12:44 → 2ND 15:44
PROVIDERS: Internal Medicine Pulmonary Disease; Nurse Practitioner Family; Admitting Provider Family Medicine; Emergency Provider Emergency Medicine; PCP Family Medicine; Visit Provider Family Medicine
DX: A41.9 Sepsis, unspecified organism (principal); J18.9 Pneumonia, unspecified organism; U07.1 COVID-19; R65.21 Severe sepsis with septic shock; J96.90 Respiratory failure, unspecified, unspecified whether with hypoxia or hypercapnia; N39.0 Urinary tract infection, site not specified; N17.9 Acute kidney failure, unspecified; J96.11 Chronic respiratory failure with hypoxia; J44.0 Chronic obstructive pulmonary disease with (acute) lower respiratory infection; K21.9 Gastro-esophageal reflux disease without esophagitis; F17.210 Nicotine dependence, cigarettes, uncomplicated; M19.90 Unspecified osteoarthritis, unspecified site; F32.A Depression, unspecified; F41.9 Anxiety disorder, unspecified; N18.9 Chronic kidney disease, unspecified; K74.60 Unspecified cirrhosis of liver; Z86.73 Personal history of transient ischemic attack (TIA), and cerebral infarction without residual deficits; K75.81 Nonalcoholic steatohepatitis (NASH); D69.6 Thrombocytopenia, unspecified; D64.9 Anemia, unspecified; E16.2 Hypoglycemia, unspecified; Z66 Do not resuscitate
CPT/HCPCS: 36415; 51702; 70450; 71045; 71275; 80048; 80053; 81001; 82140; 82803; 82962; 83605; 83735; 84100; 84436; 84443; 84480; 84484; 85007; 85014; 85018; 85025; 85048; 85049; 87040; 87086; 93005; 93308; 93971; 94640; 94660; 94760; 96365; 96366; 96367; 99285; C9803; J0692; J1956; Q9967; U0003; U0005